=== PATIENT | female | born 1950 | race African-American/Black ===

== ENCOUNTER 2020-08-08 10:30 | Outpatient (RCR) | payer MEDICARE, OTHER, SELFPAY ==
[2020-07-17 12:38] VITALS: BMI 38.5
[2020-07-17 12:43] VITALS: BMI 38.5
== END 2020-10-15 14:18 | disposition home or self-care (01) ==
LOC: ANHDMC 10:30
PROVIDERS: PCP Internal Medicine; Visit Provider Internal Medicine Endocrinology, Diabetes & Metabolism
DX: E11.9 Type 2 diabetes mellitus without complications (principal); Z71.3 Dietary counseling and surveillance; Z71.89 Other specified counseling
CPT/HCPCS: 97802; G0108

== ENCOUNTER 2020-10-12 11:00 | Inpatient (IN) | payer MEDICARE, OTHER, SELFPAY ==
[2020-10-12] VITALS (17 sets, daily range): BP systolic 153–201; BP diastolic 85–110; PULSE 67–112; RESP 20–52; TEMP 36.5–37.7; O2SAT 86–100; BMI 39.1
--- NOTE | ~2020-10-12 | XR_ITS ---
EXAMINATION: XR chest 1V portable DATE: 10/12/2020 12:14 INDICATION: Fever. COVID-19 pneumonia. TECHNIQUE: A single frontal view of the chest was obtained. COMPARISON: None. FINDINGS: There are patchy airspace opacities in all right lung zones and in left mid and lower lung zones. No pleural effusion or pneumothorax. The heart size is normal. IMPRESSION: 1. Diffuse lung disease, consistent with COVID-19 pneumonia. Reviewed, dictated and finalized at location A. RAMMER
--- NOTE | ~2020-10-12 | XR_ITS ---
EXAMINATION: XR abdomen/kub 1V INDICATION: Left flank pain TECHNIQUE: Supine views of the abdomen were obtained on 2 radiographs. COMPARISON: CT from today FINDINGS: The bowel gas pattern is normal. There are no dilated loops of bowel. No urolithiasis is id entified. There are phleboliths in the pelvis. Airspace opacities are present in the visualized lung bases. There is mild osteoarthritis of the hips. IMPRESSION: 1. No urolithiasis identified. 2. Bibasilar airspace opacities, consistent with pneumonia. Reviewed, dictated and finalized at location A. ET OPERATOR
--- NOTE | ~2020-10-12 | CT_ITS ---
EXAMINATION: CT brain wo con EXAM DATE: 10/21/2020 15:55 INDICATION: Episode of staring off, temporary change in awareness. Elevated BP. TECHNIQUE: Spiral CT of the head was performed without contrast. Axial, coronal and sagittal images were reviewed. The dose-length product (DLP) for this examination was 681.00 mGy-cm. The exposure w as tailored according to patient size, and iterative reconstruction (ASIR) was used as additional dos e reduction technique. There is no prior study for comparison. FINDINGS: There is no acute intraparenchymal hemorrhage. No evidence of intraparenchymal brain mass lesion. No evidence of acute infarction. Please note that initial head CT has limited sensitivity f or small or acute infarctions. There is mild periventricular and subcortical hypodensity, nonspecific but probably related to small vessel ischemic disease. There is mild prominence of the sulci and v entricles related to cerebral atrophy. There is intracranial carotid arteriosclerosis. There are n o extra-axial collections. There is no mass effect or midline shift. The orbits are unremarkable. Soft tissue is unremarkable. The visualized sinuses and mastoid air cells are well aerated. IMPRESSION: 1. No acute intracranial findings. 2. Chronic age related findings. Reviewed, dictated and finalized at location A. CONSTRUCTION SUPERVISOR
--- NOTE | ~2020-10-12 | CT_ITS ---
EXAMINATION: CT abdomen pelvis wo con EXAM DATE: 10/12/2020 13:44 INDICATION: Left flank pain. TECHNIQUE: Spiral CT of the abdomen and pelvis was performed without contrast. Axial, coronal and sag ittal images were reviewed. The dose-length product (DLP) for this examination was 1374.20 mGy-cm. The exposure was tailored according to patient size (auto mA exposure control), and iterative reconst ruction (ASIR) was used as additional dose reduction technique. There is no prior study for comparis on. FINDINGS: Extensive bibasilar peripheral predominant groundglass airspace disease, appearance most co nsistent with COVID pneumonia. There is no nephrolithiasis or hydronephrosis. The uterus is not identified and has likely been prabha gically resected. The bladder is unremarkable. The liver, spleen, adrenal glands and pancreas are u nremarkable. Small gallstones within an otherwise unremarkable gallbladder. There is no retroperito wolf or pelvic lymphadenopathy. There is mild scattered arteriosclerotic disease. The appendix is normal. There is small sliding gastroesophageal hiatal hernia. There is expected am ount of colonic stool. No free intraperitoneal gas. The heart is normal in size. There are no pe ricardial or pleural effusions. The lung bases are unremarkable. There are no osteoblastic or osteo lytic lesions identified. IMPRESSION: 1. No nephrolithiasis, hydronephrosis or acute intra-abdominal findings. 2. Extensive COVID pneumonia. Reviewed, dictated and finalized at location B. ER ASSEMBLER
--- NOTE | ~2020-10-12 | CT_ITS ---
EXAMINATION: CTA chest PE protocol DATE: 10/14/2020 10:33 IT QUALITY ASSURANCE ANALYST INDICATION: Hypoxia. Covid. TECHNIQUE: Computed tomographic angiography (CTA) of the chest was performed with 100 mL Omnipaque-35 0 intravenous contrast. The dose-length product was 794.19 mGy-cm. Maximum intensity projection 3D-re constructions of the aorta and other arteries were constructed by the technologist on a separate work station. Automated exposure control and iterative reconstruction technique were employed. COMPARISON: Chest dated 10/12/2020 FINDINGS: Study is slightly limited by motion artifact. No large central pulmonary embolism. There is mediastinal and right hilar lymphadenopathy, likely reactive. No significant pleural or pericardial effusion. Heart size normal. The upper abdomen is grossly unremarkable. There are extensive patchy groundglass opacities with mosa ic attenuation, compatible with pneumonia. No endobronchial lesions. No evidence for aortic aneurysm or dissection. IMPRESSION: 1. No large central pulmonary embolism. Evaluation of peripheral pulmonary arteries limited by motion . 2: Extensive patchy groundglass opacification throughout both lungs, compatible with pneumonia. 3: Mediastinal and right hilar lymphadenopathy, likely reactive. Reviewed, dictated and finalized at location A. QUALITY ASSURANCE ANALYST IMPRESSION: 1. No large central pulmonary embolism. Evaluation of peripheral pulmonary summer zhanna limited by motion. 2: Extensive patchy groundglass opacification throughout both lungs, compatible with pneumonia. 3: Mediastinal and right hilar lymphadenopathy, likely reactive.
--- NOTE | 2020-10-12 11:18 | ECG_ITS ---
Measurements Intervals [place] Rate: 97 P: 14 NM: 157 QRS: -16 QRSD: 89 T: 63 QT: 337 QTc: 428 Interpretive Statements SINUS RHYTHM VOLTAGE CRITERIA FOR LVH POOR R WAVE PROGRESSION, CONSIDER ANTERIOR INFARCT ABNORMAL ECG Electronically Signed On 10-12-2020 15:34:42 CHAIN OFFBEARER by Boom Hale D.O.
[2020-10-12 11:40] LABS: Hemoglobin 11.8 g/dL (12.0-15.0); Mean Corpuscular HGB Conc 33.7 g/dl (32-36); Mean Corpuscular Hemoglobin 29.5 pg (26-34); Mean Corpuscular Volume 87.5 fl (80-100); Mean Platelet Volume 9.7 fl (7.4-10.4); Platelet Count Result 241 k/mm3 (150-375); Red Cell Distribution Width 14.7 % (11.5-14.5); White Blood Count 8.8 K/mm3 (4.5-10.0)
[2020-10-12 11:50] LABS: Prothrombin Time 13.7 Seconds (11.1-14.7)
[2020-10-12 11:51] LABS: Partial Thromboplastin Time 32.1 SECONDS (22.3-36.8)
[2020-10-12 11:52] LABS: Lactic Acid Reflex 1.5 mmol/L (0.7-2.1)
[2020-10-12 11:57] LABS: Alanine Aminotransferase 49 U/L (4-35); Albumin Level 3.7 g/dL (3.5-5.1); Alkaline Phosphatase 112 U/L (38-126); Anion Gap 6 mmol/L (8-16); Aspartate Amino Transferase 70 U/L (14-36); Blood Urea Nitrogen 12 mg/dL (7-17); Calcium 9.2 mg/dL (8.4-10.2); Carbon Dioxide 27 mmol/L (22-30); Chloride 104 mmol/L (98-107); Estimated CRCL calculation 52 ml/min; Estimated Glomerular Filt Rate 45; Glucose 112 mg/dL (65-105); Potassium 4.6 mmol/L (3.4-5.0); Sodium 137 mmol/L (137-145)
[2020-10-12 11:59] LABS: Hypochromasia 1+ (NORMAL); Lymphocytes Absolute Manual 0.79 K/mm3 (1.1-4.5); Monocytes Absolute Manual 0.61 K/mm3 (0.1-0.90); Monocytes Percent Manual 7 % (3-9); Neutrophils Percent Manual 84 % (46-73); Platelet Estimate Adequate (Adequate); Tear Drop Cells 1+ (NORMAL); Total Cells Counted 100
[2020-10-12 12:06] LABS: CRP 26.2 mg/dL (<1.0)
[2020-10-12 12:08] LABS: Add Urine Microscopic? YES; Appearance Urine Clear (Clear); Bacteria Urine Trace /hpf; Bilirubin Urine Negative (Negative); Blood Urine Negative (Negative); Cellular Casts Urine Present /lpf; Color Urine Yellow (Yellow); Glucose Urine UA Negative (Negative); Hyaline Casts Urine 15-19 /lpf; Ketones Urine Negative (Negative); Leukocyte Esterase Ur Negative LEU/UL (Negative); Mucus Urine Rare /lpf; Nitrate Urine Negative (Negative); Protein Urine 3+ mg/dL (Negative); RBC Urine 0-2 /hpf (0-2); Specific Grav Ur 1.018 (1.001-1.035); Squamous Epithelial Cell Urine Many /hpf (Few)
[2020-10-12 13:07] LABS: Alveolar/Arterial O2 Gradient 47.2 mmHg; Base Excess ABG 0.7 mEq/l (+/-2.0); Carboxyhemoglobin 0.3 % THb (0-2.0); Fractional Inspired Oxygen 21 %; HCO3 ABG 24.3 mEq/l (22.0-26.0); Methemoglobin ABG 0.3 %THb (0-1.5); Oxygen Content ABG 15.3 %vol (16.0-22.0); Oxygen Saturation ABG 92.3 % (95.0-100.0); PCO2 ABG 35.5 mmHg (35.0-45.0); PO2 FiO2 Ratio Arterial Blood 2.86 %; Reduced Hemoglobin 9.4 %THb (0-5.0); Total Hemoglobin 12.1 g/dL (12.0-18.0); pH ABG 7.454 (7.350-7.450)
[2020-10-12 13:08] LABS: Device ROOM AIR; Modified Allen's Test Pass; Site Drawn LEFT RADIAL
--- NOTE | 2020-10-12 13:10 | PC.NURSE ---
Patient's family members were updated by phone as ok'd by the patient.
[2020-10-12] MEDS: SODIUM CHLORIDE 0.9% IV 1,000 ML 999 ML IV CONT (13:31)
[2020-10-12] MEDS: MORPHINE SULFATE (*CRX) 4 MG/ML INJ IV PUSH (13:33)
[2020-10-12] MEDS: ONDANSETRON INJ 4 MG/2 ML VIAL IV PUSH (13:33)
--- NOTE | 2020-10-12 13:41 | ED.GENADULT ---
HPI - General Adult General Chief complaint: Fever Stated complaint: COVID+ x 15 days, Fever Time Seen by Provider: 10/12/20 12:18 Source: patient Mode of arrival: ambulatory Limitations: no limitations History of Present Illness HPI narrative: This patient is a 70 year old female who presents from home for evaluation of worsening shortness of breath. She reports shortness of breath, fever, chills, fatigue since her diagnosis of covid 09/30/20 . He reports that she had a fever of 102 today. She states she does not feel well. She reports nausea, left flank pain and lower abdominal pain . She was evaluated at [facility] for her symptoms within the past 48 hours , and she was discharged. She reports dizziness with standing. Related Data Home Medications Medication Instructions Recorded Confirmed allopurinol 300 mg PO DAILY 10/12/20 10/12/20 calcitriol 0.25 mcg PO DAILY 10/12/20 10/12/20 clonidine HCl 0.1 mg PO TID 10/12/20 10/12/20 clonidine HCl 0.1 mg PO TID 10/12/20 10/12/20 ergocalciferol (vitamin D2) 1,250 mcg PO WEEKLY 10/12/20 10/12/20 losartan 25 mg PO DAILY 10/12/20 10/12/20 nitrofurantoin monohyd/m-cryst 100 mg PO BID 10/12/20 10/12/20 ondansetron HCl 4 mg PO PRN 10/12/20 10/12/20 prednisone 5 mg PO DAILY 10/12/20 10/12/20 tramadol 50 mg PO PRN 10/12/20 10/12/20 Allergies Allergy/AdvReac Type Severity Reaction Status Date / Time No Known Allergies Allergy Verified 10/12/20 11:27 Review of Systems Review of Systems: All systems reviewed & are unremarkable except as noted in HPI and below Constitutional: Constitutional: Reports chills, Reports fatigue, Reports fever(s) and Reports weakness ENT: Reports dizziness Cardiovascular: Cardiovascular: Denies chest pain Respiratory: Respiratory: Reports cough and Reports dyspnea Gastrointestinal: Gastrointestinal: Reports abdominal pain, Reports diarrhea, Reports nausea and Denies vomiting Genitourinary: Genitourinary: Denies hematuria, Denies nocturia, Denies dysuria and Reports flank pain Musculoskeletal: Musculoskeletal: Reports back pain PMFSH Past Medical History Medical History DM2 (diabetes mellitus, type 2) Gout Hypertension Obstructive sleep apnea Unable to wear this week due to COVID. 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 She still works part-time job at [employer]. She has 2 children. She does not have a durable power immigration attorney. She is not sure about her code status at this point emboli that she may want to be a DNR. She is a lifelong nonsmoker and does not use any alcohol or drugs. Smoking status: Never smoker Alcohol intake: never Substance use: never Substance use type: does not use Gender identity (if verbalized by the patient): Female Spiritual care concerns: No Exam Const: General: alert and ill appearing Orientation/consciousness: patient oriented x3 HENMT: Head: normocephalic and atraumatic Face and sinus: face symmetric Throat: posterior oropharynx normal, tonsils normal and uvula midline Eyes: Pupils: Equal, round and reactive pupils present EOM: EOMs intact bilaterally Chest: Chest palpation & inspection: normal inspection of the chest Resp: Effort & Inspection: tachypneic (mildly , able to speak in complete sentences) Auscultation: clear to
[2020-10-12] MEDS: DEXAMETHASONE SOD PHOS INJ 4 MG/ML VIAL 6 MG IV PUSH (14:44)
[2020-10-12] MEDS: SODIUM CHLORIDE 0.9% IV 1,000 ML 125 ML IV CONT (14:50)
--- NOTE | 2020-10-12 16:00 | PC.NURSE ---
Patient's family called with an update at this time. Ok to speak with Beth Nando (patient's sister) at [phone] as well as with Alida Mcnulty (patient's [id number]) at [phone]. Family aware patient to be admitted and that I will call back when a room has been assigned. Family also aware of COVID related visitor restrictions.
[2020-10-12] MEDS: hydrALAZINE HCL 20 MG/ML VIAL 10 MG IV PUSH (16:11)
--- NOTE | 2020-10-12 16:37 | PC.NURSE ---
Dinner tray ordered at this time.
--- NOTE | 2020-10-12 17:27 | PC.NURSE ---
Patient's family contacted and notified of the patient's room assignment.
--- NOTE | 2020-10-12 18:22 | PC.NURSE ---
This patient, Valerie Mcnulty, was admitted to 3 Med Surg Room 301-01. Patient/family oriented to hospital policies and general routines including ID bracelet, bed and alarms, visiting hours, pain management, procedures, bathroom and other care routines, personal items, smoking policy, room service/diet, and visiting hours. Information on how to activate the Rapid Response Team has been discussed. Patient/Family are encouraged to report perceived risks to care and to ask questions if they do not understand what they are told or what they should do.
--- NOTE | 2020-10-12 19:58 | PM.IMHP ---
H&P: HPI History of Present Illness Date/Time: 10/12/20 19:58 Chief Complaint: Fever Narrative: Valerie Mcnulty is a 70 year old female the patient was diagnosed with COVID about 15 days ago. She recently went to [facility] [place] because she had been so short of breath. The patient stated that she received if you prescription but did not take them. She has had a poor appetite and has not been able but take in much orally. The patient stated which she ate today was more than what she has eaten in 7 days. The patient recently was treated for UTI and has not taken her Macrobid that she is prescribed. She said it makes her sick to her stomach and gives her diarrhea. She is supposed to take them twice a day and has only been taking the once a day and some days edema take them. The patient has a history of having high blood pressure and diabetes. She said that her blood sugars are typically in the lower 100s to upper 90s. She said she was due for her Trulicity today but did take it could she has not been eating very well. She was complaining of some abdominal pain and bloating. Patient was also short of breath and she had some ABGs performed. Her O2 content was low and PO2 was low at 60. 3 L was applied for nasal cannula. The patient does have a history of RA and has been taking her prednisone. On IV fluids, given dexamethasone, Tylenol inhaler hydralazine and Zofran. Patient is being admitted to inpatient services. No kidney stones on her abdominal x-ray. Bibasilar airspace opacities consistent with pneumonia abdominal pelvis CT was read as extensive COVID pneumonia. No nephro kidney stones hydronephrosis or acute intra-abdominal findings. The urine only had 10-15 wbc's. Urine and blood cultures are pending. Patient is being admitted to inpatient services on the date of service 10/12/2020. Review of Systems Review of Systems: All systems reviewed & are unremarkable except as noted in HPI and below Constitutional: Constitutional: Reports as per HPI and Reports no additional constitutional complaints Eyes: Eyes: Reports as per HPI and Reports no additional eye complaints ENT: Reports system reviewed and no additional complaints, except as documented and Reports Normal hearing present Cardiovascular: Cardiovascular: Reports no additional cardiovascular complaints Respiratory: Respiratory: Reports no additional respiratory complaints and Reports no additional respiratory complaints Gastrointestinal: Gastrointestinal: Reports as per HPI and Reports no additional gastrointestinal complaints Musculoskeletal: Musculoskeletal: Reports no additional musculoskeletal complaints Integumentary/Breasts: Skin/Breast: Reports system reviewed and no additional complaints, except as docu and Reports as per HPI Neurologic: Reports system reviewed and no additional complaints, except as documented, Reports as per HPI and Reports Normal hearing present Psychiatric: Psychiatric: Reports no additional psychiatric complaints and Reports as per HPI Endocrine: Endocrine: Reports no additional endocrine complaints Hematologic/Lymphatic: Hematologic/Lymphatic: Reports no additional hematologic/lymphatic complaints Allergic/Immunologic: Allergic/Immunologic: Reports no additional allergic/immunologic complaints [facility] Past Medical History Medical History (Updated 10/12/20 @ 20:15 by Lucrecia Johnson NP) DM2 (diabetes mellitus, type 2) Gout Hypertension Obstructive sleep apnea Unable to wear this week due to COVID. Surgical History Surgical History (Updated 10/12/20 @ 20:15 by Lucrecia Johnson NP) History of hysterectomy for indication other than cancer Family History Family History (Updated 10/12/20 @ 20:18 by Lucrecia Johnson NP) Sibling Lupus Tobacco abuse Sibling Breast cancer 1 sister Lung cancer Another sister who has a history of smoking cigarettes Mother Heart disease Father Lung cancer Tobacco abuse
[2020-10-12 20:13] LABS: Hemoglobin A1C 6.3 % (<5.7)
[2020-10-12] MEDS: cloNIDine HCL 0.1 MG TABLET PO (21:06)
[2020-10-13] VITALS (7 sets, daily range): BP systolic 129–155; BP diastolic 71–84; PULSE 61–98; RESP 16–22; TEMP 36.5–36.8; O2SAT 90–93
[2020-10-13] MEDS: guaiFENesin/DEXTROMETHORPHAN 10 ML UDC PO ×2 (04:42→10:20)
[2020-10-13 06:28] LABS: Basophils Percent Auto 0.4 % (0.2-1.2); Hematocrit 32.7 % (37.0-47.0); Hemoglobin 11.1 g/dL (12.0-15.0); Immature Granulocyte Absolute 0.08 K/mm3 (0.00-0.031); Immature Granulocyte Percent A 1.1 % (0-0.5); Lymphocytes Absolute Auto 0.78 K/mm3 (0.9-3.2); Lymphocytes Percent Auto 10.6 % (18.3-44.2); Mean Corpuscular HGB Conc 33.9 g/dl (32-36); Mean Corpuscular Hemoglobin 28.8 pg (26-34); Mean Corpuscular Volume 84.9 fl (80-100); Mean Platelet Volume 9.7 fl (7.4-10.4); Monocytes Absolute Auto 0.5 K/mm3 (0.1-0.6); Monocytes Percent Auto 6.6 % (2.6-8.5); Neutrophils Percent Auto 81.3 % (45.5-73.1); Platelet Count Result 255 k/mm3 (150-375); Red Blood Count 3.85 M/mm3 (4.2-5.4); Red Cell Distribution Width 14.4 % (11.5-14.5); White Blood Count 7.4 K/mm3 (4.5-10.0)
[2020-10-13 06:38] LABS: Hemoglobin A1C 6.3 % (<5.7)
[2020-10-13 06:39] LABS: Alanine Aminotransferase 41 U/L (4-35); Albumin Level 3.3 g/dL (3.5-5.1); Alkaline Phosphatase 102 U/L (38-126); Anion Gap 3 mmol/L (8-16); Aspartate Amino Transferase 45 U/L (14-36); Bilirubin,Total 0.6 mg/dL (0.2-1.3); Blood Urea Nitrogen 12 mg/dL (7-17); Calcium 9.3 mg/dL (8.4-10.2); Carbon Dioxide 26 mmol/L (22-30); Chloride 108 mmol/L (98-107); Estimated CRCL calculation 62 ml/min; Estimated Glomerular Filt Rate 55; Glucose 169 mg/dL (65-105); Potassium 4.6 mmol/L (3.4-5.0); Sodium 137 mmol/L (137-145)
[2020-10-13 07:41] LABS: Anisocytosis 1+ (NORMAL); Platelet Estimate Adequate (Adequate); Poikilocytosis 1+ (NORMAL)
[2020-10-13] MEDS: allopurinoL 300 MG TABLET PO (10:20)
[2020-10-13] MEDS: DEXAMETHASONE SOD PHOS INJ 4 MG/ML VIAL 6 MG IV PUSH (10:20)
[2020-10-13] MEDS: cloNIDine HCL 0.1 MG TABLET PO ×3 (10:20→18:01)
[2020-10-13] MEDS: LOSARTAN POTASSIUM 25 MG TABLET PO (10:21)
[2020-10-13] MEDS: calcitrioL 0.25 MCG CAPSULE PO (10:21)
[2020-10-13] MEDS: ENOXAPARIN 40 MG/0.4 ML SYRINGE SUB-Q (10:21)
[2020-10-13 12:09] LABS: Glucose Point of Care 144 (65-105)
[2020-10-13] MEDS: SODIUM CHLORIDE 0.9% IV 1,000 ML 50 ML IV CONT (12:29)
[2020-10-13 12:30] LABS: Glucose Point of Care 186 (65-105)
--- NOTE | 2020-10-13 15:18 | PM.IMPN ---
Progress Note: A&P Assessment and Plan (1) COVID-19: Code(s): U07.1 - COVID-19 Status: Acute Assessment and Plan: With acute respiratory failure with hypoxia; requiring 3L O2 NC. ABG shows hypoxemia, although reduced hemoglobin elevated, possible mixed specimen. Diagnosed with COVID on 09/30. Placed on IV decadron from ED; home oral prednisone held for now. Continue IV decadron IS Mucinex and Tylenol Will do scheduled albuterol inhaler Prone position discussed at admission. Encouraged her to get up out of bed as tolerated Wean O2 as tolerated Consider further imaging if no improvement in oxygen needs Will d/c fluids as PO intake appears to have improved per EMR (2) UTI (urinary tract infection): Code(s): N39.0 - Urinary tract infection, site not specified Status: Acute Assessment and Plan: Diagnosed prior to arrival and could not complete her course of Macrobid due to poor PO intake. UA suspicious for UTI; UCx pending. Blood cultures obtained and NGTD thus far Continue IV rocephin for now; tailor antibiotics to culture Encourage PO intake (3) Gout: Code(s): M10.9 - Gout, unspecified Status: Chronic Assessment and Plan: Continue with allopurinol (4) Hypertension: Code(s): I10 - Essential (primary) hypertension Status: Chronic Assessment and Plan: BP 150s sys most recently Continue with losartan and clonidine hydralazine p.r.n. with parameters (5) DM2 (diabetes mellitus, type 2): Code(s): E11.9 - Type 2 diabetes mellitus without complications Status: Chronic Assessment and Plan: A1c 6.3 Accuchecks ACHS, hypoglycemia protocol, correctional insulin, diabetic diet Patient reportedly takes trulicity although this is not in her home medication list (6) Obstructive sleep apnea: Code(s): G47.33 - Obstructive sleep apnea (adult) (pediatric) Status: Chronic Assessment and Plan: Will hold CPAP for now as patient COVID positive and still symptomatic, although it has been roughly 2 weeks since symptom onset. Subjective Date/time seen: 10/13/20 15:18 Interval history: Patient is a 70 yo F with history of DMII, gout, HTN, and SUMAYA and recent COVID pneumonia (diagnosed 09/30/20) who is seen in follow up for acute respiratory failure with hypoxia and suspected UTI. Patient states she feels much better today then yesterday, but still feeling short of breath; unable to take a deep breath in. She reports a cough with yellow sputum production. Denies chest pain/pleuritic pain. Appetite has improved some. Gets ocassional subjective f/c. No other complaints at the moment. Denies headaches, cp/palpitations, sob/cough, n/v/d/c, abd pain, changes in BMs, dysuria, calf pain Review of Systems Review of Systems: All systems reviewed & are unremarkable except as noted in HPI and below Exam Narrative: Exam Narrative: General: Patient resting in semi moore's position in bed in no acute distress. HEENT: Normocephalic, EOMI, oral mucosa moist. Cardiovascular: Rate and rhythm are regular. No notable murmur, rub, or gallop. Respiratory: Coarse breath sounds b/l. +cough with yellow sputum. Non-labored breathing. Abdomen: Soft, non-tender, non-distended, bowel sounds present. Extremities: Peripheral pulses intact. No edema. NTTP b/l calves Neuro: No focal neurological deficits. Speech is clear. Objective Data Vital Signs Vital Signs: Last Vital Signs Temp 97.8 F 10/13/20 12:00 Pulse 61 10/13/20 12:00 Resp 20 10/13/20 12:00 BP 155/84 H 10/13/20 12:00 Pulse Ox 92 10/13/20 12:00 Intake/Output Intake/Output: Intake & Output 10/10/20 10/11/20 10/12/20 10/13/20 23:59 23:59 23:59
[2020-10-13 18:30] LABS: Glucose Point of Care 190 (65-105)
[2020-10-13] MEDS: guaiFENesin 12 HR 600 MG TABCR 1200 MG PO (20:25)
[2020-10-13 21:42] LABS: Glucose Point of Care 294 (65-105)
[2020-10-13] MEDS: ALBUTEROL SULFATE (*SP) INHALER 2 PUFF INHALATION (22:06)
[2020-10-14] VITALS (8 sets, daily range): BP systolic 108–164; BP diastolic 61–99; PULSE 71–92; RESP 20–22; TEMP 36.2–36.8; O2SAT 89–97
[2020-10-14] MEDS: ALBUTEROL SULFATE (*SP) INHALER 2 PUFF INHALATION ×4 (01:42→20:41)
[2020-10-14 06:34] LABS: Basophils Percent Auto 0.2 % (0.2-1.2); Hematocrit 32.9 % (37.0-47.0); Hemoglobin 11.1 g/dL (12.0-15.0); Immature Granulocyte Absolute 0.17 K/mm3 (0.00-0.031); Immature Granulocyte Percent A 1.6 % (0-0.5); Lymphocytes Absolute Auto 0.74 K/mm3 (0.9-3.2); Mean Corpuscular HGB Conc 33.7 g/dl (32-36); Mean Corpuscular Volume 85.9 fl (80-100); Monocytes Absolute Auto 0.7 K/mm3 (0.1-0.6); Neutrophils Absolute Auto 8.9 K/mm3 (1.3-6.7); Neutrophils Percent Auto 84.2 % (45.5-73.1); Nucleated Red Blood Cells Perc 0.4 % (0.0-0.2); Platelet Count Result 337 k/mm3 (150-375); Red Blood Count 3.83 M/mm3 (4.2-5.4); Red Cell Distribution Width 14.4 % (11.5-14.5); White Blood Count 10.6 K/mm3 (4.5-10.0)
[2020-10-14 06:50] LABS: Alanine Aminotransferase 42 U/L (4-35); Albumin Level 3.3 g/dL (3.5-5.1); Alkaline Phosphatase 115 U/L (38-126); Anion Gap 4 mmol/L (8-16); Aspartate Amino Transferase 53 U/L (14-36); Bilirubin,Total 0.5 mg/dL (0.2-1.3); Blood Urea Nitrogen 21 mg/dL (7-17); Calcium 9.5 mg/dL (8.4-10.2); Carbon Dioxide 26 mmol/L (22-30); Chloride 107 mmol/L (98-107); Estimated CRCL calculation 57 ml/min; Estimated Glomerular Filt Rate 49; Glucose 173 mg/dL (65-105); Magnesium 2.2 mg/dL (1.6-2.3); Potassium 4.9 mmol/L (3.4-5.0); Sodium 137 mmol/L (137-145)
[2020-10-14 08:23] LABS: Glucose Point of Care 182 (65-105)
[2020-10-14] MEDS: cloNIDine HCL 0.1 MG TABLET PO ×3 (08:53→18:16)
[2020-10-14] MEDS: guaiFENesin 12 HR 600 MG TABCR 1200 MG PO (08:53)
[2020-10-14] MEDS: calcitrioL 0.25 MCG CAPSULE PO (08:56)
[2020-10-14] MEDS: allopurinoL 300 MG TABLET PO (08:56)
[2020-10-14] MEDS: ENOXAPARIN 40 MG/0.4 ML SYRINGE SUB-Q (08:57)
[2020-10-14] MEDS: LOSARTAN POTASSIUM 25 MG TABLET PO (08:57)
[2020-10-14] MEDS: DEXAMETHASONE SOD PHOS INJ 4 MG/ML VIAL 6 MG IV PUSH (08:58)
--- NOTE | 2020-10-14 10:35 | PCOTNOTE ---
Attempted to see patient this am, however patient off floor for testing/procedure at this time.
--- NOTE | 2020-10-14 13:08 | PCOTNOTE ---
Attempted to see patient at 12:20, however patient was with physical therapy. Attempted again this pm, however patient was eating lunch.
[2020-10-14] MEDS: INSULIN ASPART (*BKC) 100 UNITS/ML SUB-Q ×2 (13:15→18:17)
[2020-10-14] MEDS: guaiFENesin/DEXTROMETHORPHAN 10 ML UDC PO ×2 (13:17→18:19)
[2020-10-14] MEDS: SODIUM CHLORIDE 0.9% IV 1,000 ML 50 ML IV CONT (13:17)
--- NOTE | 2020-10-14 13:29 | PM.IMPN ---
Progress Note: A&P Assessment and Plan (1) COVID-19: Code(s): U07.1 - COVID-19 Status: Acute Assessment and Plan: With acute respiratory failure with hypoxia; requiring 3-4 L O2 NC in the past 24 hours; currently on 3.5 L. PE of of concern for hypoxia; CTA chest 10/14 was unremarkable for evidence of PE, although limited due to artifact. ABG shows hypoxemia, although reduced hemoglobin elevated, possible mixed specimen. Diagnosed with COVID on 09/30. Placed on IV decadron from ED; home oral prednisone held for now. Continue IV decadron IS Supportive care with Robitussin and Tylenol PRN Will do scheduled albuterol inhaler Prone position discussed at admission. Encouraged her to get up out of bed as tolerated Wean O2 as tolerated (2) UTI (urinary tract infection): Code(s): N39.0 - Urinary tract infection, site not specified Status: Acute Assessment and Plan: Diagnosed prior to arrival and could not complete her course of Macrobid due to poor PO intake. UA suspicious for UTI; UCx Negative. Blood cultures obtained and NGTD thus far Continue IV rocephin today to complete 3 doses for suspected partially treated UTI Encourage PO intake (3) Gout: Code(s): M10.9 - Gout, unspecified Status: Chronic Assessment and Plan: Continue with allopurinol (4) Hypertension: Code(s): I10 - Essential (primary) hypertension Status: Chronic Assessment and Plan: BP 150s sys most recently Continue with losartan and clonidine hydralazine p.r.n. with parameters (5) DM2 (diabetes mellitus, type 2): Code(s): E11.9 - Type 2 diabetes mellitus without complications Status: Chronic Assessment and Plan: A1c 6.3 Accuchecks ACHS, hypoglycemia protocol, correctional insulin, diabetic diet Patient reportedly takes trulicity although this is not in her home medication list (6) Obstructive sleep apnea: Code(s): G47.33 - Obstructive sleep apnea (adult) (pediatric) Status: Chronic Assessment and Plan: Will hold CPAP for now as patient COVID positive and still symptomatic, although it has been roughly 2 weeks since symptom onset. Subjective Date/time seen: 10/14/20 13:29 Interval history: Patient is a 70 yo F with history of DMII, gout, HTN, and SUMAYA and recent COVID pneumonia (diagnosed 09/30/20) who is seen in follow up for acute respiratory failure with hypoxia and suspected UTI. Patient states she feels much better again today, but still feeling short of breath; unable to take a deep breath in still. She still reports a cough with yellow sputum production. Denies chest pain/pleuritic pain. Appetite has improved some again today. No other complaints at the moment. Denies headaches, cp/palpitations, sob/cough, n/v/d/c, abd pain, changes in BMs, dysuria, calf pain Review of Systems Review of Systems: All systems reviewed & are unremarkable except as noted in HPI and below Exam Narrative: Exam Narrative: General: Patient sitting on side of bed about to eat lunch in no acute distress. HEENT: Normocephalic, EOMI, oral mucosa moist. Cardiovascular: Rate and rhythm are regular. No notable murmur, rub, or gallop. Respiratory: Coarse breath sounds b/l. +cough. Non-labored breathing. Abbreviated inspirations. On 3.5 L O2 NC at time of visit; EMR documented otherwise Abdomen: Soft, non-tender, non-distended, bowel sounds present. Extremities: Peripheral pulses intact. No edema. NTTP b/l calves Neuro: No focal neurological deficits. Speech is clear. Objective Data Vital Signs Vital Signs: Last Vital Signs Temp 98.0 F 10/14/20 12:00 Pulse 91 10/14/20 12:00 Resp 20 10/14/20 12:00 BP 159/84 H 10/14/20 12:00 P
[2020-10-14 13:38] LABS: Glucose Point of Care 279 (65-105)
[2020-10-14 17:33] LABS: Glucose Point of Care 218 (65-105)
[2020-10-14 21:28] LABS: Glucose Point of Care 327 (65-105)
[2020-10-15] VITALS (9 sets, daily range): BP systolic 126–215; BP diastolic 59–108; PULSE 67–105; RESP 16–24; TEMP 36.3–37.3; O2SAT 68–98
[2020-10-15] MEDS: ALBUTEROL SULFATE (*SP) INHALER 2 PUFF INHALATION ×4 (02:19→21:07)
[2020-10-15 06:22] LABS: Basophils Percent Auto 0.3 % (0.2-1.2); Hematocrit 31.9 % (37.0-47.0); Hemoglobin 10.9 g/dL (12.0-15.0); Immature Granulocyte Absolute 0.23 K/mm3 (0.00-0.031); Immature Granulocyte Percent A 2.4 % (0-0.5); Lymphocytes Absolute Auto 0.67 K/mm3 (0.9-3.2); Lymphocytes Percent Auto 6.9 % (18.3-44.2); Mean Corpuscular HGB Conc 34.2 g/dl (32-36); Mean Corpuscular Hemoglobin 29.4 pg (26-34); Mean Platelet Volume 9.7 fl (7.4-10.4); Monocytes Absolute Auto 0.9 K/mm3 (0.1-0.6); Monocytes Percent Auto 9.2 % (2.6-8.5); Neutrophils Absolute Auto 7.9 K/mm3 (1.3-6.7); Neutrophils Percent Auto 81.2 % (45.5-73.1); Nucleated Red Blood Cells Perc 0.2 % (0.0-0.2); Platelet Count Result 363 k/mm3 (150-375); Red Blood Count 3.71 M/mm3 (4.2-5.4); Red Cell Distribution Width 14.4 % (11.5-14.5); White Blood Count 9.7 K/mm3 (4.5-10.0)
[2020-10-15 06:31] LABS: Alanine Aminotransferase 62 U/L (4-35); Albumin Level 3.1 g/dL (3.5-5.1); Alkaline Phosphatase 115 U/L (38-126); Anion Gap 6 mmol/L (8-16); Aspartate Amino Transferase 73 U/L (14-36); Bilirubin,Total 0.3 mg/dL (0.2-1.3); Blood Urea Nitrogen 20 mg/dL (7-17); Calcium 9.4 mg/dL (8.4-10.2); Carbon Dioxide 25 mmol/L (22-30); Chloride 110 mmol/L (98-107); Estimated CRCL calculation 62 ml/min; Estimated Glomerular Filt Rate 55; Glucose 198 mg/dL (65-105); Potassium 4.9 mmol/L (3.4-5.0); Sodium 141 mmol/L (137-145)
[2020-10-15 06:33] LABS: Lactate Dehydrogenase 1035 U/L (313-618)
--- NOTE | 2020-10-15 08:18 | PCPTNOTE ---
RN requests to hold PT this morning due to patient's O2 sats decreasing following transfer to [facility]. PT will follow up this afternoon.
[2020-10-15] MEDS: DEXAMETHASONE SOD PHOS INJ 4 MG/ML VIAL 6 MG IV PUSH (09:38)
[2020-10-15] MEDS: ENOXAPARIN 40 MG/0.4 ML SYRINGE SUB-Q (09:38)
[2020-10-15] MEDS: SODIUM CHLORIDE 0.9% IV 1,000 ML 50 ML IV CONT (09:38)
[2020-10-15] MEDS: LOSARTAN POTASSIUM 25 MG TABLET PO (09:39)
[2020-10-15] MEDS: calcitrioL 0.25 MCG CAPSULE PO (09:39)
[2020-10-15] MEDS: allopurinoL 300 MG TABLET PO (09:39)
[2020-10-15] MEDS: cloNIDine HCL 0.1 MG TABLET PO ×3 (09:39→17:11)
[2020-10-15 09:56] LABS: Glucose Point of Care 173 (65-105)
--- NOTE | 2020-10-15 12:07 | PM.IMPN ---
Progress Note: A&P Assessment and Plan (1) COVID-19: Code(s): U07.1 - COVID-19 Status: Acute Assessment and Plan: With acute respiratory failure with hypoxia; requiring 3-4 L O2 NC in the past 24 hours; currently on 3.5 L. PE of of concern for hypoxia; CTA chest 10/14 was unremarkable for evidence of PE, although limited due to artifact; extensive patchy groundglass opacification throughout both lungs, compatible with pneumonia noted. ABG showed hypoxemia, although reduced hemoglobin elevated, possible mixed specimen. Diagnosed with COVID on 09/30. Placed on IV decadron from ED; home oral prednisone held for now. Continue IV decadron IS Supportive care with Robitussin and Tylenol PRN Will do scheduled albuterol inhaler Prone position discussed at admission. Encouraged her to get up out of bed as tolerated. Encouraged breathing exercises although she has difficulty comprehending/tolerating Wean O2 as tolerated (2) UTI (urinary tract infection): Code(s): N39.0 - Urinary tract infection, site not specified Status: Acute Assessment and Plan: Diagnosed prior to arrival and could not complete her course of Macrobid due to poor PO intake. UA suspicious for UTI; UCx Negative. Blood cultures obtained and NGTD thus far. No urinary complaints Rocephin given x 3 days Encourage PO intake Monitor (3) Gout: Code(s): M10.9 - Gout, unspecified Status: Chronic Assessment and Plan: Continue with allopurinol (4) Hypertension: Code(s): I10 - Essential (primary) hypertension Status: Chronic Assessment and Plan: BP 190s sys most recently, although this was prior to daily meds Continue with losartan and clonidine hydralazine p.r.n. with parameters (5) DM2 (diabetes mellitus, type 2): Code(s): E11.9 - Type 2 diabetes mellitus without complications Status: Chronic Assessment and Plan: A1c 6.3 Accuchecks ACHS, hypoglycemia protocol, correctional insulin, diabetic diet Patient reportedly takes trulicity although this is not in her home medication list (6) Obstructive sleep apnea: Code(s): G47.33 - Obstructive sleep apnea (adult) (pediatric) Status: Chronic Assessment and Plan: CPAP initially held due to COVID infection, although it has been roughly >2 weeks since symptom onset and patient having difficulty controlling her breathing Will resume CPAP today Subjective Date/time seen: 10/15/20 12:07 Interval history: Patient is a 70 yo F with history of DMII, gout, HTN, and SUMAYA and recent COVID pneumonia (diagnosed 09/30/20) who is seen in follow up for acute respiratory failure with hypoxia and suspected UTI. Patient states she feels better again today, however, nursing reports that patient desatted on her supplemental oxygen this morning and was placed on NR mask as she was unable to teach patient to breath through her nostrils. Feels a bit anxious today. Encouraged her to breath through nose when having her NC on. Otherwise patient overall feels better and has little complaints. Tolerating PO. Cough has improved. Denies headaches, cp/palpitations, n/v/d/c, abd pain, changes in BMs, dysuria, calf pain. Review of Systems Review of Systems: All systems reviewed & are unremarkable except as noted in HPI and below Exam Narrative: Exam Narrative: General: Patient initially lying supine in bed with head raised, in no acute distress. Sat up on side of bed with little difficulty. HEENT: Normocephalic, EOMI, oral mucosa moist. Cardiovascular: Rate and rhythm are regular. No notable murmur, rub, or gallop. Respiratory: Coarse breath sounds b/l. +cough. Non-labored breathing. Abbreviated inspirations. On 10 L with
[2020-10-15 13:05] LABS: Glucose Point of Care 211 (65-105)
[2020-10-15] MEDS: INSULIN ASPART (*BKC) 100 UNITS/ML SUB-Q ×3 (13:24→22:25)
[2020-10-15] MEDS: LORazepam INJ (*CRX) 2 MG/ML VIAL 0.5 MG IV PUSH (13:24)
--- NOTE | 2020-10-15 15:44 | PC.NURSE ---
Patient tested COVID positive on 09/30/20. Questions about discontinuing droplet isolation due to increase oxygen this morning (4L to 10LHF). Spoke to Chelsea about this. Ok to continue isolation. Monitor daily.
[2020-10-15] MEDS: hydrALAZINE HCL 20 MG/ML VIAL 10 MG IV PUSH ×2 (17:16→18:55)
[2020-10-15 17:28] LABS: Glucose Point of Care 272 (65-105)
[2020-10-15 21:55] LABS: Glucose Point of Care 384 (65-105)
[2020-10-15] MEDS: INSULIN GLARGINE (*BKC) 100 UNITS/ML 10 UNITS SUB-Q (22:25)
[2020-10-15] MEDS: traMADol HCL (*CRX) 50 MG TABLET PO (22:46)
[2020-10-16] VITALS (11 sets, daily range): BP systolic 158–240; BP diastolic 76–120; PULSE 70–97; RESP 20–22; TEMP 36.3–36.9; O2SAT 78–100
[2020-10-16] MEDS: ALBUTEROL SULFATE (*SP) INHALER 2 PUFF INHALATION ×4 (02:24→20:51)
[2020-10-16 06:21] LABS: Basophils Percent Auto 0.2 % (0.2-1.2); Hematocrit 31.9 % (37.0-47.0); Hemoglobin 10.9 g/dL (12.0-15.0); Immature Granulocyte Absolute 0.46 K/mm3 (0.00-0.031); Immature Granulocyte Percent A 4.8 % (0-0.5); Lymphocytes Absolute Auto 0.78 K/mm3 (0.9-3.2); Lymphocytes Percent Auto 8.2 % (18.3-44.2); Mean Corpuscular HGB Conc 34.2 g/dl (32-36); Mean Corpuscular Hemoglobin 29.4 pg (26-34); Mean Platelet Volume 9.8 fl (7.4-10.4); Monocytes Percent Auto 10.1 % (2.6-8.5); Neutrophils Absolute Auto 7.3 K/mm3 (1.3-6.7); Neutrophils Percent Auto 76.7 % (45.5-73.1); Nucleated Red Blood Cells Perc 0.4 % (0.0-0.2); Platelet Count Result 372 k/mm3 (150-375); Red Blood Count 3.71 M/mm3 (4.2-5.4); Red Cell Distribution Width 14.6 % (11.5-14.5); White Blood Count 9.5 K/mm3 (4.5-10.0)
[2020-10-16 06:34] LABS: Alanine Aminotransferase 60 U/L (4-35); Albumin Level 3.1 g/dL (3.5-5.1); Alkaline Phosphatase 106 U/L (38-126); Anion Gap 4 mmol/L (8-16); Aspartate Amino Transferase 54 U/L (14-36); Bilirubin,Total 0.4 mg/dL (0.2-1.3); Blood Urea Nitrogen 20 mg/dL (7-17); Calcium 9.2 mg/dL (8.4-10.2); Carbon Dioxide 28 mmol/L (22-30); Chloride 107 mmol/L (98-107); Estimated CRCL calculation 62 ml/min; Estimated Glomerular Filt Rate 55; Glucose 198 mg/dL (65-105); Potassium 4.8 mmol/L (3.4-5.0); Sodium 139 mmol/L (137-145)
[2020-10-16] MEDS: ENOXAPARIN 40 MG/0.4 ML SYRINGE SUB-Q ×2 (09:01→20:50)
[2020-10-16] MEDS: DEXAMETHASONE SOD PHOS INJ 4 MG/ML VIAL 6 MG IV PUSH (09:02)
[2020-10-16] MEDS: LOSARTAN POTASSIUM 25 MG TABLET PO (09:02)
[2020-10-16] MEDS: cloNIDine HCL 0.1 MG TABLET PO ×3 (09:02→17:35)
[2020-10-16] MEDS: allopurinoL 300 MG TABLET PO (09:02)
[2020-10-16] MEDS: calcitrioL 0.25 MCG CAPSULE PO (09:02)
[2020-10-16 09:21] LABS: Glucose Point of Care 192 (65-105)
[2020-10-16] MEDS: INSULIN ASPART (*BKC) 100 UNITS/ML SUB-Q ×2 (12:25→17:35)
[2020-10-16 12:38] LABS: Glucose Point of Care 256 (65-105)
--- NOTE | 2020-10-16 12:44 | PC.NURSE ---
1220 pt pulse ox 97% on 15 high flow n/c decreased to 12 l
--- NOTE | 2020-10-16 14:34 | PM.IMPN ---
Progress Note: A&P Assessment and Plan (1) COVID-19: Code(s): U07.1 - COVID-19 Status: Acute Assessment and Plan: With acute respiratory failure with hypoxia; requiring high-flow nasal cannula in the past 24 hours; and currently on 12L. PE of of concern for hypoxia; CTA chest 10/14 was unremarkable for evidence of PE, although limited due to artifact; extensive patchy groundglass opacification throughout both lungs, compatible with pneumonia noted. ABG showed hypoxemia, although reduced hemoglobin elevated, possible mixed specimen. Diagnosed with COVID on 09/30. Placed on IV decadron from ED; home oral prednisone held for now. Continue IV decadron IS Supportive care with Robitussin and Tylenol PRN Will do scheduled albuterol inhaler Prone position discussed at admission. Encouraged her to get up out of bed as tolerated. Encouraged breathing exercises although she has difficulty comprehending/tolerating Wean O2 as tolerated PATIENT IS A FULL CODE (2) UTI (urinary tract infection): Code(s): N39.0 - Urinary tract infection, site not specified Status: Acute Assessment and Plan: Diagnosed prior to arrival and could not complete her course of Macrobid due to poor PO intake. UA suspicious for UTI; UCx Negative. Blood cultures obtained and NGTD thus far. No urinary complaints Rocephin given x 3 days Encourage PO intake Monitor (3) Gout: Code(s): M10.9 - Gout, unspecified Status: Chronic Assessment and Plan: Continue with allopurinol (4) Hypertension: Code(s): I10 - Essential (primary) hypertension Status: Chronic Assessment and Plan: BP 190s sys most recently, although this was prior to daily meds Continue with losartan and clonidine hydralazine p.r.n. with parameters (5) DM2 (diabetes mellitus, type 2): Code(s): E11.9 - Type 2 diabetes mellitus without complications Status: Chronic Assessment and Plan: A1c 6.3 Accuchecks ACHS, hypoglycemia protocol, correctional insulin, diabetic diet Patient reportedly takes trulicity although this is not in her home medication list (6) Obstructive sleep apnea: Code(s): G47.33 - Obstructive sleep apnea (adult) (pediatric) Status: Chronic Assessment and Plan: CPAP initially held due to COVID infection, although it has been roughly >2 weeks since symptom onset and patient having difficulty controlling her breathing Will resume CPAP today Time Spent With Patient Time with patient: 25 - 35 minutes Subjective Date/time seen: 10/16/20 14:34 Interval history: Patient is a 70 yo F with history of DMII, gout, HTN, and SUMAYA and recent COVID pneumonia (diagnosed 09/30/20) who is seen in follow up for acute respiratory failure with hypoxia and suspected UTI. Date of Service 10/16/2020: She reports she is feeling better today, but whenever she went to sit up on the side of the bed earlier she became very short of breath. She reports a slight headache and pain to her right eye which she believes is from the oxygen level. She is now resting comfortably again back in bed. She denies any fevers, chills, chest pain, cough, nausea, vomiting, leg swelling, calf pain or any other symptoms at this time. Review of Systems Review of Systems: All systems reviewed & are unremarkable except as noted in HPI and below Exam Narrative: Exam Narrative: General: 70-year-old woman laying flat in bed with head elevated at 45 degrees. Resting comfortably on High Flow Nasal Canula, not much dyspnea with talking. Appears comfortable. In no acute distress. Skin: No jaundice or cyanosis. Good skin turgor. Neck: Full range of motion. Supple. Respiratory: Lungs are fior
[2020-10-16] MEDS: hydrALAZINE HCL 20 MG/ML VIAL 10 MG IV PUSH (17:40)
[2020-10-16 17:59] LABS: Glucose Point of Care 287 (65-105)
--- NOTE | 2020-10-16 18:07 | PC.NURSE ---
1730 pt b/p was 188/90 hydralazine 10 mg given. pt denies any symptoms.
--- NOTE | 2020-10-16 19:05 | PC.NURSE ---
1904 called gay Zamora with recheck b/p , wants it rechecked in an hour, pt was given hydralaxine 10mg iv , and catapres po at 1740.
[2020-10-16] MEDS: INSULIN GLARGINE (*BKC) 100 UNITS/ML 10 UNITS SUB-Q (20:51)
[2020-10-16] MEDS: hydrALAZINE 10 MG TABLET PO (21:13)
[2020-10-16] MEDS: LORazepam INJ (*CRX) 2 MG/ML VIAL 0.5 MG IV PUSH (21:13)
[2020-10-16 21:44] LABS: Glucose Point of Care 398 (65-105)
[2020-10-16] MEDS: INSULIN ASPART (*BKC) 100 UNITS/ML 6 UNITS SUB-Q (23:03)
[2020-10-16] MEDS: ENALAPRILAT 1.25 MG/ML VIAL IV PUSH (23:33)
[2020-10-17] VITALS (12 sets, daily range): BP systolic 147–204; BP diastolic 70–100; PULSE 77–97; RESP 20–24; TEMP 36.2–36.8; O2SAT 91–100
[2020-10-17 00:34] LABS: Glucose Point of Care 259 (65-105)
[2020-10-17] MEDS: hydrALAZINE HCL 20 MG/ML VIAL 10 MG IV PUSH ×3 (01:42→18:02)
[2020-10-17 06:36] LABS: Hematocrit 32.1 % (37.0-47.0); Mean Corpuscular HGB Conc 34.3 g/dl (32-36); Mean Corpuscular Volume 84.7 fl (80-100); Mean Platelet Volume 9.6 fl (7.4-10.4); Platelet Count Result 382 k/mm3 (150-375); Red Blood Count 3.79 M/mm3 (4.2-5.4); Red Cell Distribution Width 14.3 % (11.5-14.5); White Blood Count 8.3 K/mm3 (4.5-10.0)
[2020-10-17] MEDS: traMADol HCL (*CRX) 50 MG TABLET PO ×2 (06:57→16:42)
[2020-10-17 07:03] LABS: Alanine Aminotransferase 57 U/L (4-35); Alkaline Phosphatase 95 U/L (38-126); Anion Gap 3 mmol/L (8-16); Aspartate Amino Transferase 38 U/L (14-36); Bilirubin,Total 0.5 mg/dL (0.2-1.3); Blood Urea Nitrogen 23 mg/dL (7-17); CRP 6.2 mg/dL (<1.0); Calcium 9.2 mg/dL (8.4-10.2); Carbon Dioxide 30 mmol/L (22-30); Chloride 105 mmol/L (98-107); Estimated CRCL calculation 62 ml/min; Estimated Glomerular Filt Rate 55; Glucose 192 mg/dL (65-105); Lactate Dehydrogenase 787 U/L (313-618); Potassium 4.7 mmol/L (3.4-5.0); Sodium 138 mmol/L (137-145)
[2020-10-17 08:33] LABS: Glucose Point of Care 166 (65-105)
[2020-10-17] MEDS: ALBUTEROL SULFATE (*SP) INHALER 2 PUFF INHALATION ×3 (08:56→20:30)
[2020-10-17] MEDS: DEXAMETHASONE SOD PHOS INJ 4 MG/ML VIAL 6 MG IV PUSH (08:57)
[2020-10-17] MEDS: ENOXAPARIN 40 MG/0.4 ML SYRINGE SUB-Q ×2 (08:57→20:29)
[2020-10-17] MEDS: calcitrioL 0.25 MCG CAPSULE PO (08:58)
[2020-10-17] MEDS: allopurinoL 300 MG TABLET PO (08:58)
[2020-10-17] MEDS: cloNIDine HCL 0.1 MG TABLET PO ×3 (08:58→16:42)
[2020-10-17] MEDS: LOSARTAN POTASSIUM 25 MG TABLET PO (08:58)
[2020-10-17] MEDS: INSULIN ASPART (*BKC) 100 UNITS/ML SUB-Q ×2 (12:42→17:49)
[2020-10-17 13:34] LABS: Glucose Point of Care 289 (65-105)
--- NOTE | 2020-10-17 15:54 | PM.IMPN ---
Progress Note: A&P Assessment and Plan (1) COVID-19: Code(s): U07.1 - COVID-19 Status: Acute Assessment and Plan: With acute respiratory failure with hypoxia; requiring high-flow nasal cannula in the past 24 hours; and currently on 12L. PE of of concern for hypoxia; CTA chest 10/14 was unremarkable for evidence of PE, although limited due to artifact; extensive patchy groundglass opacification throughout both lungs, compatible with pneumonia noted. ABG showed hypoxemia, although reduced hemoglobin elevated, possible mixed specimen. Diagnosed with COVID on 09/30. Placed on IV decadron from ED; home oral prednisone held for now. Patient has intermittent desaturations with movement getting to the commode. Will place her on bed rest at this time and place a Dias catheter since she is currently on 15 L high-flow nasal cannula in if she becomes any worse would have to move her down to IMU on Airvo Continue IV decadron IS Supportive care with Robitussin and Tylenol PRN Will do scheduled albuterol inhaler Prone position discussed at admission. Encouraged breathing exercises although she has difficulty comprehending/tolerating Wean O2 as tolerated PATIENT IS A FULL CODE (2) UTI (urinary tract infection): Code(s): N39.0 - Urinary tract infection, site not specified Status: Acute Assessment and Plan: Diagnosed prior to arrival and could not complete her course of Macrobid due to poor PO intake. UA suspicious for UTI; UCx Negative. Blood cultures obtained and NGTD thus far. No urinary complaints Rocephin given x 3 days Encourage PO intake Monitor (3) Gout: Code(s): M10.9 - Gout, unspecified Status: Chronic Assessment and Plan: Continue with allopurinol (4) Hypertension: Code(s): I10 - Essential (primary) hypertension Status: Chronic Assessment and Plan: BP elevated at 198/100, she was given IV hydralazine with improvement to 147/72. Will add amlodipine 5 mg daily Continue with losartan and clonidine hydralazine p.r.n. with parameters (5) DM2 (diabetes mellitus, type 2): Code(s): E11.9 - Type 2 diabetes mellitus without complications Status: Chronic Assessment and Plan: A1c 6.3%. Elevated glucose levels most likely due to steroids. Glucose this morning was 192. Continue with sliding scale insulin. Continue Accuchecks ACHS, hypoglycemia protocol, correctional insulin, diabetic diet Patient reportedly takes trulicity although this is not in her home medication list (6) Obstructive sleep apnea: Code(s): G47.33 - Obstructive sleep apnea (adult) (pediatric) Status: Chronic Assessment and Plan: CPAP initially held due to COVID infection, although it has been roughly >2 weeks since symptom onset and patient having difficulty controlling her breathing Will resume CPAP today Time Spent With Patient Time with patient: 25 - 35 minutes Subjective Date/time seen: 10/17/20 15:54 Interval history: Patient is a 70 yo F with history of DMII, gout, HTN, and SUMAYA and recent COVID pneumonia (diagnosed 09/30/20) who is seen in follow up for acute respiratory failure with hypoxia and suspected UTI. Date of Service 10/17/2020: She still has increased shortness of breath with any type of exertion, with getting up to the commode. She does report some with movement in using her incentive spirometer. She is now resting comfortably again back in bed. She denies any fevers, chills, chest pain, cough, nausea, vomiting, leg swelling, calf pain or any other symptoms at this time. Review of Systems Review of Systems: All systems reviewed & are unremarkable except as noted in HPI and below Exam Narrative:
[2020-10-17 18:29] LABS: Glucose Point of Care 340 (65-105)
[2020-10-17] MEDS: SODIUM CHLORIDE NASAL GEL 14.1 GM 1 APPLIC NASAL (20:29)
[2020-10-17] MEDS: INSULIN GLARGINE (*BKC) 100 UNITS/ML 10 UNITS SUB-Q (20:29)
[2020-10-17 22:18] LABS: Glucose Point of Care 439 (65-105)
[2020-10-17] MEDS: INSULIN GLARGINE (*BKC) 100 UNITS/ML SUB-Q (22:55)
[2020-10-17] MEDS: INSULIN ASPART (*BKC) 100 UNITS/ML 6 UNITS SUB-Q (22:55)
[2020-10-18] VITALS (11 sets, daily range): BP systolic 138–191; BP diastolic 56–108; PULSE 63–93; RESP 18–24; TEMP 36.2–36.6; O2SAT 88–100
[2020-10-18] MEDS: hydrALAZINE HCL 20 MG/ML VIAL 10 MG IV PUSH ×2 (00:19→05:05)
[2020-10-18] MEDS: ALBUTEROL SULFATE (*SP) INHALER 2 PUFF INHALATION ×4 (01:43→22:32)
[2020-10-18 06:42] LABS: Hemoglobin 11.3 g/dL (12.0-15.0); Mean Corpuscular HGB Conc 34.2 g/dl (32-36); Mean Corpuscular Hemoglobin 29.6 pg (26-34); Mean Corpuscular Volume 86.4 fl (80-100); Mean Platelet Volume 9.9 fl (7.4-10.4); Platelet Count Result 359 k/mm3 (150-375); Red Blood Count 3.82 M/mm3 (4.2-5.4); Red Cell Distribution Width 14.7 % (11.5-14.5); White Blood Count 8.2 K/mm3 (4.5-10.0)
[2020-10-18 07:03] LABS: Alanine Aminotransferase 61 U/L (4-35); Alkaline Phosphatase 88 U/L (38-126); Anion Gap 3 mmol/L (8-16); Aspartate Amino Transferase 39 U/L (14-36); Bilirubin,Total 0.4 mg/dL (0.2-1.3); Blood Urea Nitrogen 27 mg/dL (7-17); CRP 4.7 mg/dL (<1.0); Calcium 9.4 mg/dL (8.4-10.2); Carbon Dioxide 28 mmol/L (22-30); Chloride 105 mmol/L (98-107); Estimated CRCL calculation 76 ml/min; Estimated Glomerular Filt Rate > 60; Glucose 230 mg/dL (65-105); Lactate Dehydrogenase 740 U/L (313-618); Potassium 4.6 mmol/L (3.4-5.0); Sodium 136 mmol/L (137-145)
[2020-10-18] MEDS: calcitrioL 0.25 MCG CAPSULE PO (08:02)
[2020-10-18] MEDS: LOSARTAN POTASSIUM 25 MG TABLET PO (08:02)
[2020-10-18] MEDS: amLODIPine BESYLATE 5 MG TABLET PO (08:02)
[2020-10-18] MEDS: cloNIDine HCL 0.1 MG TABLET PO ×3 (08:02→17:05)
[2020-10-18] MEDS: ENOXAPARIN 40 MG/0.4 ML SYRINGE SUB-Q ×2 (08:03→22:31)
[2020-10-18] MEDS: allopurinoL 300 MG TABLET PO (08:03)
[2020-10-18] MEDS: DEXAMETHASONE SOD PHOS INJ 4 MG/ML VIAL 6 MG IV PUSH (08:03)
[2020-10-18 09:44] LABS: Glucose Point of Care 187 (65-105)
[2020-10-18 13:09] LABS: Glucose Point of Care 310 (65-105)
[2020-10-18] MEDS: INSULIN ASPART (*BKC) 100 UNITS/ML SUB-Q (13:10)
--- NOTE | 2020-10-18 13:28 | P.PNIM_ITS ---
Progress Note: A&P Assessment and Plan (1) COVID-19: Code(s): U07.1 - COVID-19 Status: Acute Assessment and Plan: With acute respiratory failure with hypoxia. * PE of concern for hypoxia; CTA chest 10/14 was unremarkable for evidence of PE, although limited due to artifact; extensive patchy groundglass opacification throughout both lungs, compatible with pneumonia noted. * ABG showed hypoxemia, although reduced hemoglobin elevated, possible mixed specimen. * She was diagnosed with COVID on 09/30. Placed on IV decadron from ED on 10/12/2020. She is out of the window for IV Remdesivir * She is on 15 L high-flow nasal cannula with intermittent use of non-rebreather which improves her hypoxia acutely, if she becomes any worse would have to move her down to IMU on Airvo * Patient is on bed rest for now as well as Dias catheter to prevent exertion and oxygen desaturations. * IS * Supportive care with Robitussin and Tylenol PRN * Will do scheduled albuterol inhaler * Prone position discussed at admission. Encouraged breathing exercises although she has difficulty comprehending/tolerating * Wean O2 as tolerated PATIENT IS A FULL CODE (2) UTI (urinary tract infection): Code(s): N39.0 - Urinary tract infection, site not specified Status: Acute Assessment and Plan: Diagnosed prior to arrival and could not complete her course of Macrobid due to poor PO intake. UA suspicious for UTI; UCx Negative. Blood cultures obtained and NGTD thus far. No urinary complaints * Rocephin given x 3 days * Encourage PO intake * Monitor (3) Gout: Code(s): M10.9 - Gout, unspecified Status: Chronic Assessment and Plan: * Continue with allopurinol (4) Hypertension: Code(s): I10 - Essential (primary) hypertension Status: Chronic Assessment and Plan: BP elevated at 191/101 this morning. Her morning medications were given with improvement of her blood pressure to 138/56. * Continue new BP medication amlodipine 5 mg daily * Continue with losartan and clonidine * hydralazine p.r.n. with parameters (5) DM2 (diabetes mellitus, type 2): Code(s): E11.9 - Type 2 diabetes mellitus without complications Status: Chronic Assessment and Plan: A1c 6.3%. Elevated glucose levels most likely due to steroids. * Glucose this morning was 230. Continue Accuchecks ACHS, hypoglycemia protocol, correctional insulin, diabetic diet * Patient reportedly takes trulicity although this is not in her home medication list (6) Obstructive sleep apnea: Code(s): G47.33 - Obstructive sleep apnea (adult) (pediatric) Status: Chronic Assessment and Plan: * CPAP initially held due to COVID infection, although it has been roughly >2 weeks since symptom onset and patient having difficulty controlling her breathing * Continue CPAP. Time Spent With Patient Time with patient: 25 - 35 minutes Subjective Date/time seen: 10/18/20 13:28 Interval history: Patient is a 70 yo F with history of DMII, gout, HTN, and SUMAYA and recent COVID pneumonia (diagnosed 09/30/20) who is seen in follow up for acute respiratory failure with hypoxia and suspected UTI. Date of Service 10/18/2020: She still has increased shortness of breath with any type of exertion, even with moving around in bed. She does report feeling
--- NOTE | 2020-10-18 13:28 | PM.IMPN ---
Progress Note: A&P Assessment and Plan (1) COVID-19: Code(s): U07.1 - COVID-19 Status: Acute Assessment and Plan: With acute respiratory failure with hypoxia. PE of concern for hypoxia; CTA chest 10/14 was unremarkable for evidence of PE, although limited due to artifact; extensive patchy groundglass opacification throughout both lungs, compatible with pneumonia noted. ABG showed hypoxemia, although reduced hemoglobin elevated, possible mixed specimen. She was diagnosed with COVID on 09/30. Placed on IV decadron from ED on 10/12/2020. She is out of the window for IV Remdesivir She is on 15 L high-flow nasal cannula with intermittent use of non-rebreather which improves her hypoxia acutely, if she becomes any worse would have to move her down to IMU on Airvo Patient is on bed rest for now as well as Dias catheter to prevent exertion and oxygen desaturations. IS Supportive care with Robitussin and Tylenol PRN Will do scheduled albuterol inhaler Prone position discussed at admission. Encouraged breathing exercises although she has difficulty comprehending/tolerating Wean O2 as tolerated PATIENT IS A FULL CODE (2) UTI (urinary tract infection): Code(s): N39.0 - Urinary tract infection, site not specified Status: Acute Assessment and Plan: Diagnosed prior to arrival and could not complete her course of Macrobid due to poor PO intake. UA suspicious for UTI; UCx Negative. Blood cultures obtained and NGTD thus far. No urinary complaints Rocephin given x 3 days Encourage PO intake Monitor (3) Gout: Code(s): M10.9 - Gout, unspecified Status: Chronic Assessment and Plan: Continue with allopurinol (4) Hypertension: Code(s): I10 - Essential (primary) hypertension Status: Chronic Assessment and Plan: BP elevated at 191/101 this morning. Her morning medications were given with improvement of her blood pressure to 138/56. Continue new BP medication amlodipine 5 mg daily Continue with losartan and clonidine hydralazine p.r.n. with parameters (5) DM2 (diabetes mellitus, type 2): Code(s): E11.9 - Type 2 diabetes mellitus without complications Status: Chronic Assessment and Plan: A1c 6.3%. Elevated glucose levels most likely due to steroids. Glucose this morning was 230. Continue Accuchecks ACHS, hypoglycemia protocol, correctional insulin, diabetic diet Patient reportedly takes trulicity although this is not in her home medication list (6) Obstructive sleep apnea: Code(s): G47.33 - Obstructive sleep apnea (adult) (pediatric) Status: Chronic Assessment and Plan: CPAP initially held due to COVID infection, although it has been roughly >2 weeks since symptom onset and patient having difficulty controlling her breathing Continue CPAP. Time Spent With Patient Time with patient: 25 - 35 minutes Subjective Date/time seen: 10/18/20 13:28 Interval history: Patient is a 70 yo F with history of DMII, gout, HTN, and SUMAYA and recent COVID pneumonia (diagnosed 09/30/20) who is seen in follow up for acute respiratory failure with hypoxia and suspected UTI. Date of Service 10/18/2020: She still has increased shortness of breath with any type of exertion, even with moving around in bed. She does report feeling better today. She does report some nasal congestion and postnasal drip. She denies any fevers, chills, chest pain, cough, nausea, vomiting, leg swelling, calf pain or any other symptoms at this time. Review of Systems Review of Systems: All systems reviewed & are unremarkable except as noted in HPI and below Exam Narrative: Exam Narrative: General: 70-year-old woman laying flat in bed w
[2020-10-18 17:27] LABS: Glucose Point of Care 413 (65-105)
[2020-10-18] MEDS: INSULIN ASPART (*BKC) 100 UNITS/ML 12 UNITS SUB-Q (17:31)
[2020-10-18] MEDS: INSULIN GLARGINE (*BKC) 100 UNITS/ML 14 UNITS SUB-Q (22:30)
[2020-10-18] MEDS: SODIUM CHLORIDE NASAL GEL 14.1 GM 1 APPLIC NASAL (22:32)
[2020-10-19] VITALS (9 sets, daily range): BP systolic 134–212; BP diastolic 49–86; PULSE 65–88; RESP 18–28; TEMP 36.1–36.9; O2SAT 92–98
[2020-10-19 00:52] LABS: Glucose Point of Care 324 (65-105)
[2020-10-19] MEDS: ALBUTEROL SULFATE (*SP) INHALER 2 PUFF INHALATION ×4 (01:19→20:49)
[2020-10-19] MEDS: guaiFENesin 12 HR 600 MG TABCR PO ×3 (01:19→20:49)
[2020-10-19] MEDS: ENOXAPARIN 40 MG/0.4 ML SYRINGE SUB-Q ×2 (08:00→20:49)
[2020-10-19] MEDS: amLODIPine BESYLATE 5 MG TABLET PO (08:00)
[2020-10-19] MEDS: allopurinoL 300 MG TABLET PO (08:00)
[2020-10-19] MEDS: LOSARTAN POTASSIUM 25 MG TABLET PO (08:00)
[2020-10-19] MEDS: cloNIDine HCL 0.1 MG TABLET PO ×3 (08:00→17:59)
[2020-10-19] MEDS: calcitrioL 0.25 MCG CAPSULE PO (08:00)
[2020-10-19] MEDS: DEXAMETHASONE SOD PHOS INJ 4 MG/ML VIAL 6 MG IV PUSH (08:01)
[2020-10-19 08:14] LABS: Glucose Point of Care 161 (65-105)
[2020-10-19] MEDS: INSULIN ASPART (*BKC) 100 UNITS/ML SUB-Q ×2 (13:13→18:00)
[2020-10-19 13:39] LABS: Glucose Point of Care 298 (65-105)
--- NOTE | 2020-10-19 15:33 | PM.IMPN ---
Progress Note: A&P Assessment and Plan (1) Acute hypoxemic respiratory failure due to COVID-19: Code(s): U07.1 - COVID-19; J96.01 - Acute respiratory failure with hypoxia Status: Acute Assessment and Plan: Secondary to COVID pneumonia. 10/19/2020: Improved today. She is on 9 L high-flow nasal cannula with intermittent use of non-rebreather which improves her hypoxia acutely, if she becomes any worse would have to move her down to IMU on Airvo IS. Supportive care with Robitussin and Tylenol PRN. Will do scheduled albuterol inhaler. Prone position discussed at admission. Encouraged breathing exercises although she has difficulty comprehending/tolerating. Wean O2 as tolerated (2) COVID-19: Code(s): U07.1 - COVID-19 Status: Acute Assessment and Plan: With acute respiratory failure with hypoxia. PE of concern for hypoxia; CTA chest 10/14 was unremarkable for evidence of PE, although limited due to artifact; extensive patchy groundglass opacification throughout both lungs, compatible with pneumonia noted. ABG showed hypoxemia, although reduced hemoglobin elevated, possible mixed specimen. She was diagnosed with COVID on 09/30. Placed on IV decadron from ED on 10/12/2020. She is out of the window for IV Remdesivir Patient is on bed rest for now as well as Dias catheter to prevent exertion and oxygen desaturations. Continue monitoring patient and administering IV Decadron. PATIENT IS A FULL CODE (3) UTI (urinary tract infection): Code(s): N39.0 - Urinary tract infection, site not specified Status: Acute Assessment and Plan: Diagnosed prior to arrival and could not complete her course of Macrobid due to poor PO intake. UA suspicious for UTI; UCx Negative. Blood cultures obtained and NGTD thus far. No urinary complaints Rocephin given x 3 days Encourage PO intake Monitor (4) Gout: Code(s): M10.9 - Gout, unspecified Status: Chronic Assessment and Plan: Continue with allopurinol (5) Hypertension: Code(s): I10 - Essential (primary) hypertension Status: Chronic Assessment and Plan: BP elevated at 143/85 this morning. Improved. Continue new BP medication amlodipine 5 mg daily Continue with losartan and clonidine hydralazine p.r.n. with parameters (6) DM2 (diabetes mellitus, type 2): Code(s): E11.9 - Type 2 diabetes mellitus without complications Status: Chronic Assessment and Plan: A1c 6.3%. Elevated glucose levels most likely due to steroids. Glucose this morning was 298. Continue Accuchecks ACHS, hypoglycemia protocol, correctional insulin, diabetic diet Patient reportedly takes trulicity although this is not in her home medication list (7) Obstructive sleep apnea: Code(s): G47.33 - Obstructive sleep apnea (adult) (pediatric) Status: Chronic Assessment and Plan: CPAP initially held due to COVID infection, although it has been roughly >2 weeks since symptom onset and patient having difficulty controlling her breathing Continue CPAP. Time Spent With Patient Time with patient: 25 - 35 minutes Subjective Date/time seen: 10/19/20 15:33 Interval history: Patient is a 70 yo F with history of DMII, gout, HTN, and SUMAYA and recent COVID pneumonia (diagnosed 09/30/20) who is seen in follow up for acute respiratory failure with hypoxia and suspected UTI. Date of Service 10/19/2020: She reports some improvement to her breathing today, but still having exertional symptoms and some nasal congestion. She does report feeling better today. She denies any fevers, chills, chest pain, cough, nausea, vomiting, leg swelling, calf pain or any ot
[2020-10-19] MEDS: DOCUSATE SODIUM 100 MG CAPSULE PO ×2 (17:58→20:49)
[2020-10-19 18:29] LABS: Glucose Point of Care 387 (65-105)
[2020-10-19] MEDS: INSULIN GLARGINE (*BKC) 100 UNITS/ML 14 UNITS SUB-Q (20:49)
[2020-10-19] MEDS: SODIUM CHLORIDE NASAL GEL 14.1 GM 1 APPLIC NASAL (20:49)
[2020-10-19 21:01] LABS: Glucose Point of Care 381 (65-105)
[2020-10-20] VITALS (7 sets, daily range): BP systolic 132–167; BP diastolic 65–83; PULSE 63–77; RESP 16–20; TEMP 35.9–36.6; O2SAT 93–98
[2020-10-20] MEDS: ALBUTEROL SULFATE (*SP) INHALER 2 PUFF INHALATION ×4 (02:25→20:37)
[2020-10-20 06:38] LABS: Hematocrit 33.9 % (37.0-47.0); Hemoglobin 11.6 g/dL (12.0-15.0); Mean Corpuscular HGB Conc 34.2 g/dl (32-36); Mean Corpuscular Hemoglobin 29.6 pg (26-34); Mean Corpuscular Volume 86.5 fl (80-100); Mean Platelet Volume 9.8 fl (7.4-10.4); Platelet Count Result 368 k/mm3 (150-375); Red Blood Count 3.92 M/mm3 (4.2-5.4); White Blood Count 11.8 K/mm3 (4.5-10.0)
[2020-10-20 07:03] LABS: Alanine Aminotransferase 61 U/L (4-35); Albumin Level 3.2 g/dL (3.5-5.1); Alkaline Phosphatase 77 U/L (38-126); Anion Gap 3 mmol/L (8-16); Aspartate Amino Transferase 34 U/L (14-36); Bilirubin,Total 0.6 mg/dL (0.2-1.3); Blood Urea Nitrogen 29 mg/dL (7-17); CRP 1.9 mg/dL (<1.0); Calcium 9.3 mg/dL (8.4-10.2); Carbon Dioxide 31 mmol/L (22-30); Chloride 102 mmol/L (98-107); Estimated CRCL calculation 62 ml/min; Estimated Glomerular Filt Rate 55; Glucose 205 mg/dL (65-105); Lactate Dehydrogenase 607 U/L (313-618); Potassium 4.5 mmol/L (3.4-5.0); Sodium 136 mmol/L (137-145)
[2020-10-20 08:10] LABS: Glucose Point of Care 164 (65-105)
[2020-10-20] MEDS: LOSARTAN POTASSIUM 25 MG TABLET PO (08:42)
[2020-10-20] MEDS: calcitrioL 0.25 MCG CAPSULE PO (08:42)
[2020-10-20] MEDS: amLODIPine BESYLATE 5 MG TABLET PO (08:42)
[2020-10-20] MEDS: DOCUSATE SODIUM 100 MG CAPSULE PO ×2 (08:42→20:37)
[2020-10-20] MEDS: cloNIDine HCL 0.1 MG TABLET PO ×3 (08:42→17:53)
[2020-10-20] MEDS: guaiFENesin 12 HR 600 MG TABCR PO ×2 (08:42→20:38)
[2020-10-20] MEDS: allopurinoL 300 MG TABLET PO (08:43)
[2020-10-20] MEDS: DEXAMETHASONE SOD PHOS INJ 4 MG/ML VIAL 6 MG IV PUSH (08:43)
[2020-10-20] MEDS: ENOXAPARIN 40 MG/0.4 ML SYRINGE SUB-Q ×2 (08:43→20:37)
--- NOTE | 2020-10-20 09:32 | PC.NURSE ---
Pt was up to chair for breakfast. started coughing spell. O2 at 5 lpm nasal cannula and 15lpm NRB. O2 dropped into low 80s. o2 on high flow cannula increased to 10 and then to 15. o2 increased to 90%. Pt helped back to bed. high flow cannula increased to 15lpm and continued 15lpm NRB. Pt started to calm down and o2 improved to 94%. LPM on high flow cannula reduced to 10lpm. pt calm and spo2 is at 92%. Will continue to monitor. Sarina Cabello. NOTIFIED.
--- NOTE | 2020-10-20 09:51 | PCPTNOTE ---
Holding on therapy this morning per nurse. Nurse stated patient required increased O2 and was put back to bed. Will attempt to see patient in afternoon.
[2020-10-20 12:20] LABS: Glucose Point of Care 232 (65-105)
[2020-10-20] MEDS: INSULIN ASPART (*BKC) 100 UNITS/ML SUB-Q ×2 (12:50→17:53)
--- NOTE | 2020-10-20 13:26 | PM.IMPN ---
Progress Note: A&P Assessment and Plan (1) Acute hypoxemic respiratory failure due to COVID-19: Code(s): U07.1 - COVID-19; J96.01 - Acute respiratory failure with hypoxia Status: Acute Assessment and Plan: Secondary to COVID pneumonia. 10/20/2020: Improved today. She is on 7 L high-flow nasal cannula with intermittent use of non-rebreather which improves her hypoxia acutely. Continue treatment and management. IS. Supportive care with Robitussin and Tylenol PRN. Will do scheduled albuterol inhaler. Prone position discussed at admission. Encouraged breathing exercises although she has difficulty comprehending/tolerating. Wean O2 as tolerated (2) COVID-19: Code(s): U07.1 - COVID-19 Status: Acute Assessment and Plan: With acute respiratory failure with hypoxia. PE of concern for hypoxia; CTA chest 10/14 was unremarkable for evidence of PE, although limited due to artifact; extensive patchy groundglass opacification throughout both lungs, compatible with pneumonia noted. ABG showed hypoxemia, although reduced hemoglobin elevated, possible mixed specimen. She was diagnosed with COVID on 09/30. Placed on IV decadron from ED on 10/12/2020. She is out of the window for IV Remdesivir Patient is on bed rest for now as well as Dias catheter to prevent exertion and oxygen desaturations. Continue monitoring patient and administering IV Decadron. PATIENT IS A FULL CODE (3) UTI (urinary tract infection): Code(s): N39.0 - Urinary tract infection, site not specified Status: Acute Assessment and Plan: Diagnosed prior to arrival and could not complete her course of Macrobid due to poor PO intake. UA suspicious for UTI; UCx Negative. Blood cultures obtained and NGTD thus far. No urinary complaints Rocephin given x 3 days Encourage PO intake Monitor (4) Gout: Code(s): M10.9 - Gout, unspecified Status: Chronic Assessment and Plan: Continue with allopurinol (5) Hypertension: Code(s): I10 - Essential (primary) hypertension Status: Chronic Assessment and Plan: BP elevated at 156/72 this morning, improved. Continue new BP medication amlodipine 5 mg daily Continue with losartan and clonidine hydralazine p.r.n. with parameters (6) DM2 (diabetes mellitus, type 2): Code(s): E11.9 - Type 2 diabetes mellitus without complications Status: Chronic Assessment and Plan: A1c 6.3%. Elevated glucose levels most likely due to steroids. Glucose this morning was 205. Continue Accuchecks ACHS, hypoglycemia protocol, correctional insulin, diabetic diet Patient reportedly takes trulicity although this is not in her home medication list (7) Obstructive sleep apnea: Code(s): G47.33 - Obstructive sleep apnea (adult) (pediatric) Status: Chronic Assessment and Plan: CPAP initially held due to COVID infection, although it has been roughly >2 weeks since symptom onset and patient having difficulty controlling her breathing Continue CPAP. Time Spent With Patient Time with patient: 25 - 35 minutes Subjective Date/time seen: 10/20/20 13:26 Interval history: Patient is a 70 yo F with history of DMII, gout, HTN, and SUMAYA and recent COVID pneumonia (diagnosed 09/30/20) who is seen in follow up for acute respiratory failure with hypoxia and suspected UTI. Date of Service 10/20/2020: She reports some improvement to her breathing today, but still having exertional symptoms and some nasal congestion. She was able to relief her nasal congestion by blowing her nose. She does report feeling better today. She denies any fevers, chills, chest pain, cough, nausea, vomiting, l
[2020-10-20 16:58] LABS: Glucose Point of Care 348 (65-105)
[2020-10-20] MEDS: INSULIN GLARGINE (*BKC) 100 UNITS/ML 14 UNITS SUB-Q (20:38)
[2020-10-20] MEDS: SODIUM CHLORIDE NASAL GEL 14.1 GM 1 APPLIC NASAL (20:38)
[2020-10-20 21:48] LABS: Glucose Point of Care 386 (65-105)
[2020-10-21] VITALS (7 sets, daily range): BP systolic 128–166; BP diastolic 58–77; PULSE 53–85; RESP 18–22; TEMP 36.2–36.6; O2SAT 90–100
[2020-10-21] MEDS: INSULIN ASPART (*BKC) 100 UNITS/ML SUB-Q ×4 (00:03→17:47)
[2020-10-21 08:07] LABS: Glucose Point of Care 121 (65-105)
[2020-10-21] MEDS: cloNIDine HCL 0.1 MG TABLET PO ×3 (09:07→17:48)
[2020-10-21] MEDS: LOSARTAN POTASSIUM 25 MG TABLET PO (09:07)
[2020-10-21] MEDS: ENOXAPARIN 40 MG/0.4 ML SYRINGE SUB-Q ×2 (09:07→21:35)
[2020-10-21] MEDS: DOCUSATE SODIUM 100 MG CAPSULE PO ×2 (09:07→21:35)
[2020-10-21] MEDS: calcitrioL 0.25 MCG CAPSULE PO (09:07)
[2020-10-21] MEDS: allopurinoL 300 MG TABLET PO (09:07)
[2020-10-21] MEDS: guaiFENesin 12 HR 600 MG TABCR PO ×2 (09:07→21:35)
[2020-10-21] MEDS: DEXAMETHASONE SOD PHOS INJ 4 MG/ML VIAL 6 MG IV PUSH (09:08)
[2020-10-21] MEDS: ALBUTEROL SULFATE (*SP) INHALER 2 PUFF INHALATION ×3 (09:08→21:34)
[2020-10-21] MEDS: amLODIPine BESYLATE 5 MG TABLET PO (09:08)
[2020-10-21 12:31] LABS: Glucose Point of Care 252 (65-105)
--- NOTE | 2020-10-21 14:13 | PM.IMPN ---
Progress Note: A&P Assessment and Plan (1) Lightheaded: Code(s): R42 - Dizziness and giddiness Status: Acute Assessment and Plan: The patient states she had been feeling well today, but when the nurse was in to give her her clonidine at 1:00 p.m. she felt lightheaded, diaphoretic, and think she may have passed out. The nurse stated that she appeared to look to the side and as if she was unresponsive for a second but her eyes were otherwise open and whenever he said her name she responded. She denies any similar symptoms like this in the past. I checked the patient's blood pressure and was found to be 210/100. She had just received her clonidine so we will recheck this and if IV hydralazine is needed will administer. Will also get a CT brain Will consider cause to be from TIA versus stroke also consider seizure activity, most likely it is secondary to feeling lightheaded because his pretty hot in her room, they could not get the air conditioner to work. Blood pressure most likely elevated due to anxiety from the episode of the head has occurred. Continue monitoring neuro checks and seizure precautions. (2) Acute hypoxemic respiratory failure due to COVID-19: Code(s): U07.1 - COVID-19; J96.01 - Acute respiratory failure with hypoxia Status: Acute Assessment and Plan: Secondary to COVID pneumonia. 10/21/2020: Improved today. She is on 4 L nasal cannula with intermittent use of non-rebreather which improves her hypoxia acutely. Continue treatment and management. IS. Supportive care with Robitussin and Tylenol PRN. Will do scheduled albuterol inhaler. Prone position discussed at admission. Encouraged breathing exercises although she has difficulty comprehending/tolerating. Wean O2 as tolerated (3) COVID-19: Code(s): U07.1 - COVID-19 Status: Acute Assessment and Plan: With acute respiratory failure with hypoxia. PE of concern for hypoxia; CTA chest 10/14 was unremarkable for evidence of PE, although limited due to artifact; extensive patchy groundglass opacification throughout both lungs, compatible with pneumonia noted. ABG showed hypoxemia, although reduced hemoglobin elevated, possible mixed specimen. She was diagnosed with COVID on 09/30. Placed on IV decadron from ED on 10/12/2020. She is out of the window for IV Remdesivir Patient is on bed rest for now as well as Dias catheter to prevent exertion and oxygen desaturations. Continue monitoring patient and administering IV Decadron. PATIENT IS A FULL CODE (4) UTI (urinary tract infection): Code(s): N39.0 - Urinary tract infection, site not specified Status: Acute Assessment and Plan: Diagnosed prior to arrival and could not complete her course of Macrobid due to poor PO intake. UA suspicious for UTI; UCx Negative. Blood cultures obtained and NGTD thus far. No urinary complaints Rocephin given x 3 days Encourage PO intake Monitor (5) Gout: Code(s): M10.9 - Gout, unspecified Status: Chronic Assessment and Plan: Continue with allopurinol (6) Hypertension: Code(s): I10 - Essential (primary) hypertension Status: Chronic Assessment and Plan: BP elevated at 149/67 this morning, improved. Continue new BP medication amlodipine 5 mg daily Continue with losartan and clonidine hydralazine p.r.n. with parameters (7) DM2 (diabetes mellitus, type 2): Code(s): E11.9 - Type 2 diabetes mellitus without complications Status: Chronic Assessment and Plan: A1c 6.3%. Elevated glucose levels most likely due to steroids. Glucose this morning was 121. She is on Glargine 14 Units HS as well as 3 Units Novolog TIDW
[2020-10-21 17:58] LABS: Glucose Point of Care 369 (65-105)
[2020-10-21] MEDS: INSULIN GLARGINE (*BKC) 100 UNITS/ML 14 UNITS SUB-Q (21:32)
[2020-10-21] MEDS: SODIUM CHLORIDE NASAL GEL 14.1 GM 1 APPLIC NASAL (21:35)
[2020-10-21 21:57] LABS: Glucose Point of Care 281 (65-105)
[2020-10-22] VITALS (10 sets, daily range): BP systolic 131–162; BP diastolic 59–79; PULSE 54–80; RESP 18–20; TEMP 36.3–37.1; O2SAT 91–98
[2020-10-22 06:12] LABS: Hematocrit 33.4 % (37.0-47.0); Hemoglobin 11.4 g/dL (12.0-15.0); Mean Corpuscular HGB Conc 34.1 g/dl (32-36); Mean Corpuscular Hemoglobin 29.5 pg (26-34); Mean Corpuscular Volume 86.5 fl (80-100); Mean Platelet Volume 9.7 fl (7.4-10.4); Platelet Count Result 294 k/mm3 (150-375); Red Blood Count 3.86 M/mm3 (4.2-5.4); Red Cell Distribution Width 15.3 % (11.5-14.5)
[2020-10-22 06:38] LABS: Alanine Aminotransferase 53 U/L (4-35); Alkaline Phosphatase 69 U/L (38-126); Anion Gap 2 mmol/L (8-16); Aspartate Amino Transferase 26 U/L (14-36); Bilirubin,Total 0.7 mg/dL (0.2-1.3); Blood Urea Nitrogen 30 mg/dL (7-17); CRP 1.5 mg/dL (<1.0); Calcium 9.1 mg/dL (8.4-10.2); Carbon Dioxide 31 mmol/L (22-30); Chloride 102 mmol/L (98-107); Estimated CRCL calculation 62 ml/min; Estimated Glomerular Filt Rate 55; Glucose 146 mg/dL (65-105); Lactate Dehydrogenase 538 U/L (313-618); Potassium 4.3 mmol/L (3.4-5.0); Sodium 135 mmol/L (137-145)
[2020-10-22 08:31] LABS: Glucose Point of Care 129 (65-105)
[2020-10-22] MEDS: ENOXAPARIN 40 MG/0.4 ML SYRINGE SUB-Q ×2 (09:24→21:29)
[2020-10-22] MEDS: calcitrioL 0.25 MCG CAPSULE PO (09:26)
[2020-10-22] MEDS: cloNIDine HCL 0.1 MG TABLET PO ×3 (09:26→18:02)
[2020-10-22] MEDS: allopurinoL 300 MG TABLET PO (09:26)
[2020-10-22] MEDS: guaiFENesin 12 HR 600 MG TABCR PO ×2 (09:26→21:29)
[2020-10-22] MEDS: LOSARTAN POTASSIUM 25 MG TABLET PO (09:26)
[2020-10-22] MEDS: amLODIPine BESYLATE 5 MG TABLET PO (09:26)
[2020-10-22] MEDS: DOCUSATE SODIUM 100 MG CAPSULE PO ×2 (09:26→21:29)
[2020-10-22] MEDS: ALBUTEROL SULFATE (*SP) INHALER 2 PUFF INHALATION ×3 (09:27→21:23)
--- NOTE | 2020-10-22 11:38 | PCNWS ---
Weekly nutritional screen. Spoke with patient today over the telephone due to COVID precautions. Patient is tolerating current diet with adequate intake. No further nutritional needs at this time.
--- NOTE | 2020-10-22 11:48 | PM.IMPN ---
Progress Note: A&P Assessment and Plan (1) Lightheaded: Code(s): R42 - Dizziness and giddiness Status: Acute Assessment and Plan: The patient states she had been feeling well today, but when the nurse was in to give her her clonidine at 1:00 p.m. she felt lightheaded, diaphoretic, and think she may have passed out. The nurse stated that she appeared to look to the side and as if she was unresponsive for a second but her eyes were otherwise open and whenever he said her name she responded. She denies any similar symptoms like this in the past. CT brain showed no acute abnormality. She was placed on seizure precautions and neurologic checks but she did not have any issues overnight. Most likely to be from feeling lightheaded from being too hot in her room. She does not have any neurologic symptoms at this time. Could have been a TIA from elevated blood pressure, but it seems less likely. Low likelihood of being seizure activity as well. Will stop precautions at this time. She will be moved to a different room with better air flow. Continue monitoring. (2) Acute hypoxemic respiratory failure due to COVID-19: Code(s): U07.1 - COVID-19; J96.01 - Acute respiratory failure with hypoxia Status: Acute Assessment and Plan: Secondary to COVID pneumonia. 10/22/2020: Improved today. She is on 3 L nasal cannula with oxygen at 96%. Continue monitoring with physical and occupational therapy Will need home oxygen evaluation prior to discharge Continue treatment and management. IS. Supportive care with Robitussin and Tylenol PRN. Prone position discussed at admission. Encouraged breathing exercises although she has difficulty comprehending/tolerating. Wean O2 as tolerated (3) COVID-19: Code(s): U07.1 - COVID-19 Status: Acute Assessment and Plan: With acute respiratory failure with hypoxia. PE of concern for hypoxia; CTA chest 1/17 was unremarkable for evidence of PE, although limited due to artifact; extensive patchy groundglass opacification throughout both lungs, compatible with pneumonia noted. ABG showed hypoxemia, although reduced hemoglobin elevated, possible mixed specimen. She was diagnosed with COVID on 09/30. Placed on IV decadron from ED on 10/12/2020. She is out of the window for IV Remdesivir Continue with PT and OT. Will have to remove Dias prior to discharge. Continue monitoring patient and administering IV Decadron. PATIENT IS A FULL CODE (4) UTI (urinary tract infection): Code(s): N39.0 - Urinary tract infection, site not specified Status: Acute Assessment and Plan: Diagnosed prior to arrival and could not complete her course of Macrobid due to poor PO intake. UA suspicious for UTI; UCx Negative. Blood cultures obtained and NGTD thus far. No urinary complaints Rocephin given x 3 days Encourage PO intake Monitor (5) Gout: Code(s): M10.9 - Gout, unspecified Status: Chronic Assessment and Plan: Continue with allopurinol (6) Hypertension: Code(s): I10 - Essential (primary) hypertension Status: Chronic Assessment and Plan: BP elevated at 162/72 this morning, improved. Continue new BP medication amlodipine 5 mg daily Continue with losartan and clonidine hydralazine p.r.n. with parameters (7) DM2 (diabetes mellitus, type 2): Code(s): E11.9 - Type 2 diabetes mellitus without complications Status: Chronic Assessment and Plan: A1c 6.3%. Elevated glucose levels most likely due to steroids. Glucose this morning was 146. Dexamethasone was discontinued 10/21/2020 after 10 days of therapy. May need to adjust her insulin that scheduled now that
[2020-10-22 12:42] LABS: Glucose Point of Care 196 (65-105)
[2020-10-22] MEDS: polyethylene glycoL 3350 17 GM POWD.PACK PO (12:52)
[2020-10-22] MEDS: INSULIN ASPART (*BKC) 100 UNITS/ML SUB-Q ×3 (12:53→18:03)
[2020-10-22 17:57] LABS: Glucose Point of Care 275 (65-105)
[2020-10-22] MEDS: INSULIN GLARGINE (*BKC) 100 UNITS/ML 14 UNITS SUB-Q (21:24)
[2020-10-22] MEDS: SODIUM CHLORIDE NASAL GEL 14.1 GM 1 APPLIC NASAL (21:29)
[2020-10-22 21:36] LABS: Glucose Point of Care 295 (65-105)
[2020-10-23] VITALS (15 sets, daily range): BP systolic 125–149; BP diastolic 56–71; PULSE 65–102; RESP 20–22; TEMP 36.6–36.8; O2SAT 76–98
[2020-10-23] MEDS: traMADol HCL (*CRX) 50 MG TABLET PO (02:21)
[2020-10-23] MEDS: ALBUTEROL SULFATE (*SP) INHALER 2 PUFF INHALATION ×4 (02:22→21:01)
[2020-10-23 08:18] LABS: Glucose Point of Care 125 (65-105)
[2020-10-23] MEDS: DOCUSATE SODIUM 100 MG CAPSULE PO ×2 (09:00→21:00)
[2020-10-23] MEDS: INSULIN ASPART (*BKC) 100 UNITS/ML SUB-Q ×4 (09:37→18:08)
[2020-10-23] MEDS: cloNIDine HCL 0.1 MG TABLET PO ×3 (09:37→18:09)
[2020-10-23] MEDS: allopurinoL 300 MG TABLET PO (09:38)
[2020-10-23] MEDS: ENOXAPARIN 40 MG/0.4 ML SYRINGE SUB-Q ×2 (09:38→21:00)
[2020-10-23] MEDS: calcitrioL 0.25 MCG CAPSULE PO (09:38)
[2020-10-23] MEDS: LOSARTAN POTASSIUM 25 MG TABLET PO (09:39)
[2020-10-23] MEDS: SALINE 0.65% NAS SOLN 44 ML BTL 1 SPRAY NASAL ×2 (09:39→21:01)
[2020-10-23] MEDS: amLODIPine BESYLATE 5 MG TABLET PO (09:39)
[2020-10-23] MEDS: guaiFENesin 12 HR 600 MG TABCR PO ×2 (09:40→21:00)
--- NOTE | 2020-10-23 11:58 | PCRCNOTE ---
PT UNABLE TO AMBULATE. SAT ON EDGE OF BED AND DESAT TO 75% INCREASED NASAL CANNULA TO 6 LITER, NO CHANGES IN SATS. PUT ON NONREBREATHER TO GET SATS BACK UP TO BASELINE. RN AWARE.
[2020-10-23 12:56] LABS: Glucose Point of Care 186 (65-105)
--- NOTE | 2020-10-23 17:02 | PM.IMPN ---
Progress Note: A&P Assessment and Plan (1) COVID-19: Code(s): U07.1 - COVID-19 Status: Acute Assessment and Plan: With acute respiratory failure with hypoxia; requiring 2L O2 NC at time of visit. PE of of concern for hypoxia; CTA chest 10/14 was unremarkable for evidence of PE, although limited due to artifact; extensive patchy groundglass opacification throughout both lungs, compatible with pneumonia noted. Diagnosed with COVID on 09/30. Placed on IV Decadron from ED and completed 10 days (10/21) Will do Home O2 eval; appears there was an attempt today, although patient desatted when sitting on edge of bed and was unable to ambulate; now back down to 2L O2 IS Supportive care with Robitussin and Tylenol PRN Continue scheduled albuterol inhaler Prone position discussed at admission. Encouraged her to get up out of bed as tolerated. Encouraged breathing exercises although she has difficulty comprehending/tolerating Wean O2 as tolerated Monitor tonight. Hopefully discharge in 1-2 days if improvement in O2 needs (2) Gout: Code(s): M10.9 - Gout, unspecified Status: Chronic Assessment and Plan: Continue with allopurinol (3) Hypertension: Code(s): I10 - Essential (primary) hypertension Status: Chronic Assessment and Plan: BP 120s sys most recently Continue with losartan and clonidine continue with added amlodipine; likely continue at discharge hydralazine p.r.n. with parameters (4) DM2 (diabetes mellitus, type 2): Code(s): E11.9 - Type 2 diabetes mellitus without complications Status: Chronic Assessment and Plan: A1c 6.3 Accuchecks ACHS, hypoglycemia protocol, correctional insulin, diabetic diet Patient reportedly takes trulicity although this is not in her home medication list Continue with Lantus 14 u QHS and Novolog 3 u TIDWM (5) Obstructive sleep apnea: Code(s): G47.33 - Obstructive sleep apnea (adult) (pediatric) Status: Chronic Assessment and Plan: CPAP initially held due to COVID infection, although it has been roughly >3 weeks since symptom onset and patient having difficulty controlling her breathing Continue CPAP (6) UTI (urinary tract infection): Code(s): N39.0 - Urinary tract infection, site not specified Status: Resolved Assessment and Plan: Diagnosed prior to arrival and could not complete her course of Macrobid due to poor PO intake. UA suspicious for UTI; UCx Negative. Blood cultures negative after 5 days x 2. No urinary complaints. Had her fernandez removed today. Rocephin given x 3 days earlier in stay. Encourage PO intake Monitor Additional Plan Patient had an isolated episode of lightheadedness on 10/21. Appears to have resolved. Unclear etiology although possible vasovagal episode vs less likely seizure or TIA. CT brain unremarkable. BP have been stable. Monitor for now Subjective Date/time seen: 10/23/20 17:02 Interval history: Patient is a 70 yo F with history of DMII, gout, HTN, and SUMAYA and recent COVID pneumonia (diagnosed 09/30/20) who is seen in follow up for acute respiratory failure with hypoxia likely due to COVID pneumonia. Patient states she feels better today. SOB has improved but still a bit SOB with movement. Otherwise patient overall feels better since I have seen her last week. Tolerating PO. Cough has improved. Denies headaches, cp/palpitations, n/v/d/c, abd pain, changes in BMs, dysuria, calf pain. Review of Systems Review of Systems: All systems reviewed & are unremarkable except as noted in HPI and below Exam Narrative: Exam Narrative: General: Patient initially lying supine in bed with head raised, in no acute d
[2020-10-23 17:39] LABS: Glucose Point of Care 258 (65-105)
[2020-10-23] MEDS: EUCERIN CREAM 120 GM JAR 1 APPLIC TOPICAL (21:00)
[2020-10-23] MEDS: INSULIN GLARGINE (*BKC) 100 UNITS/ML 14 UNITS SUB-Q (21:02)
[2020-10-23 21:07] LABS: Glucose Point of Care 314 (65-105)
[2020-10-23] MEDS: SODIUM CHLORIDE NASAL GEL 14.1 GM 1 APPLIC NASAL (22:29)
[2020-10-24] VITALS (13 sets, daily range): BP systolic 113–138; BP diastolic 61; PULSE 70–98; RESP 16–28; TEMP 36.2–37.1; O2SAT 86–99
[2020-10-24] MEDS: ALBUTEROL SULFATE (*SP) INHALER 2 PUFF INHALATION ×4 (01:49→20:23)
[2020-10-24 06:18] LABS: Hematocrit 29.5 % (37.0-47.0); Hemoglobin 9.9 g/dL (12.0-15.0); Mean Corpuscular HGB Conc 33.6 g/dl (32-36); Mean Corpuscular Hemoglobin 29.2 pg (26-34); Mean Platelet Volume 10.2 fl (7.4-10.4); Platelet Count Result 237 k/mm3 (150-375); Red Blood Count 3.39 M/mm3 (4.2-5.4); Red Cell Distribution Width 15.5 % (11.5-14.5); White Blood Count 7.4 K/mm3 (4.5-10.0)
[2020-10-24 07:06] LABS: Alanine Aminotransferase 41 U/L (4-35); Albumin Level 2.8 g/dL (3.5-5.1); Alkaline Phosphatase 62 U/L (38-126); Anion Gap 2 mmol/L (8-16); Aspartate Amino Transferase 25 U/L (14-36); Bilirubin,Total 0.6 mg/dL (0.2-1.3); Blood Urea Nitrogen 21 mg/dL (7-17); CRP 4.4 mg/dL (<1.0); Calcium 8.5 mg/dL (8.4-10.2); Carbon Dioxide 28 mmol/L (22-30); Chloride 105 mmol/L (98-107); Estimated CRCL calculation 68 ml/min; Estimated Glomerular Filt Rate > 60; Glucose 137 mg/dL (65-105); Potassium 4.2 mmol/L (3.4-5.0); Sodium 135 mmol/L (137-145)
[2020-10-24 08:15] LABS: Lactate Dehydrogenase 503 U/L (313-618)
[2020-10-24 08:24] LABS: Glucose Point of Care 140 (65-105)
--- NOTE | 2020-10-24 10:13 | PM.IMPN ---
Progress Note: A&P Assessment and Plan (1) COVID-19: Code(s): U07.1 - COVID-19 Status: Acute Assessment and Plan: With acute respiratory failure with hypoxia and evidence of Pneumonia on CTA chest. Requiring 2L O2 NC at time of visit. PE was of concern due to her hypoxia although CTA chest 10/14 was unremarkable for evidence of PE, although limited due to artifact; extensive patchy groundglass opacification throughout both lungs, compatible with pneumonia noted. Diagnosed with COVID on 09/30. Placed on IV Decadron from ED and completed 10 days (10/21). She appears to slowly improving Will do Home O2 eval soon IS Supportive care with Robitussin and Tylenol PRN Continue scheduled albuterol inhaler Prone position discussed at admission. Encouraged her to get up out of bed as tolerated. Encouraged breathing exercises although she has difficulty comprehending/tolerating Wean O2 as tolerated Monitor tonight. Hopefully discharge in 1-2 days if improvement in O2 needs (2) Shingles: Code(s): B02.9 - Zoster without complications Status: Acute Assessment and Plan: Supragluteal region with vesicular lesions at various sizes and stages suggestive of shingles. Bilateral in nature which is not typical for shingles. No evidence of disseminated disease. Wound Care consulted and appreciate recommendations Will initiate Valtrex 1 g PO TID for 7 days today. Will continue eucerin cream per Wound Care rec Monitor (3) Gout: Code(s): M10.9 - Gout, unspecified Status: Chronic Assessment and Plan: Continue with allopurinol (4) Hypertension: Code(s): I10 - Essential (primary) hypertension Status: Chronic Assessment and Plan: BP 120s sys most recently Continue with losartan and clonidine continue with added amlodipine; likely continue at discharge hydralazine p.r.n. with parameters (5) DM2 (diabetes mellitus, type 2): Code(s): E11.9 - Type 2 diabetes mellitus without complications Status: Chronic Assessment and Plan: A1c 6.3 Accuchecks ACHS, hypoglycemia protocol, correctional insulin, diabetic diet Patient reportedly takes trulicity although this is not in her home medication list Continue with Lantus 14 u QHS and Novolog 3 u TIDWM (6) Obstructive sleep apnea: Code(s): G47.33 - Obstructive sleep apnea (adult) (pediatric) Status: Chronic Assessment and Plan: CPAP initially held due to COVID infection, although it has been roughly >3 weeks since symptom onset and patient having difficulty controlling her breathing Continue CPAP (7) UTI (urinary tract infection): Code(s): N39.0 - Urinary tract infection, site not specified Status: Resolved Assessment and Plan: Diagnosed prior to arrival and could not complete her course of Macrobid due to poor PO intake. UA suspicious for UTI; UCx Negative. Blood cultures negative after 5 days x 2. No urinary complaints. Had her Dias removed today. Rocephin given x 3 days earlier in stay. Encourage PO intake Monitor Subjective Date/time seen: 10/24/20 10:13 Interval history: Patient is a 70 yo F with history of DMII, gout, HTN, and SUMAYA and recent COVID pneumonia (diagnosed 09/30/20) who is seen in follow up for acute respiratory failure with hypoxia likely due to COVID pneumonia. Patient states she feels better today. SOB has improved; less SOB with exertion. Cough has improved. Yesterday she noticed a rash above her buttocks; feels about the same as yesterday. Tolerating PO. Denies headaches, cp/palpitations, n/v/d/c, abd pain, changes in BMs, dysuria, calf pain. Review of Systems Review of Systems: All systems r
[2020-10-24] MEDS: ENOXAPARIN 40 MG/0.4 ML SYRINGE SUB-Q ×2 (10:48→20:24)
[2020-10-24] MEDS: amLODIPine BESYLATE 5 MG TABLET PO (10:49)
[2020-10-24] MEDS: guaiFENesin 12 HR 600 MG TABCR PO ×2 (10:49→20:25)
[2020-10-24] MEDS: LOSARTAN POTASSIUM 25 MG TABLET PO (10:49)
[2020-10-24] MEDS: cloNIDine HCL 0.1 MG TABLET PO ×3 (10:49→17:26)
[2020-10-24] MEDS: predniSONE 5 MG TABLET PO (10:49)
[2020-10-24] MEDS: allopurinoL 300 MG TABLET PO (10:49)
[2020-10-24] MEDS: calcitrioL 0.25 MCG CAPSULE PO (10:49)
[2020-10-24] MEDS: DOCUSATE SODIUM 100 MG CAPSULE PO ×2 (10:49→20:25)
[2020-10-24] MEDS: EUCERIN CREAM 120 GM JAR 1 APPLIC TOPICAL (10:50)
[2020-10-24] MEDS: valACYclovir HCL 500 MG TABLET 1000 MG PO ×3 (11:40→20:26)
[2020-10-24 12:30] LABS: Glucose Point of Care 191 (65-105)
[2020-10-24] MEDS: INSULIN ASPART (*BKC) 100 UNITS/ML SUB-Q ×3 (13:44→17:28)
[2020-10-24 17:27] LABS: Glucose Point of Care 301 (65-105)
[2020-10-24] MEDS: INSULIN GLARGINE (*BKC) 100 UNITS/ML 14 UNITS SUB-Q (20:23)
[2020-10-24] MEDS: SODIUM CHLORIDE NASAL GEL 14.1 GM 1 APPLIC NASAL (20:23)
[2020-10-24] MEDS: GABAPENTIN 100 MG CAPSULE PO (20:27)
[2020-10-24 21:06] LABS: Glucose Point of Care 301 (65-105)
[2020-10-25] VITALS (10 sets, daily range): BP systolic 130–143; BP diastolic 66–73; PULSE 65–99; RESP 18–20; TEMP 36.3–36.9; O2SAT 88–98
[2020-10-25] MEDS: valACYclovir HCL 500 MG TABLET 1000 MG PO ×3 (06:53→21:07)
[2020-10-25] MEDS: GABAPENTIN 100 MG CAPSULE PO ×2 (06:53→21:07)
[2020-10-25 08:51] LABS: Glucose Point of Care 118 (65-105)
[2020-10-25] MEDS: ENOXAPARIN 40 MG/0.4 ML SYRINGE SUB-Q ×2 (09:16→20:48)
[2020-10-25] MEDS: DOCUSATE SODIUM 100 MG CAPSULE PO ×2 (09:17→20:48)
[2020-10-25] MEDS: amLODIPine BESYLATE 5 MG TABLET PO (09:17)
[2020-10-25] MEDS: calcitrioL 0.25 MCG CAPSULE PO (09:17)
[2020-10-25] MEDS: guaiFENesin 12 HR 600 MG TABCR PO ×2 (09:17→20:48)
[2020-10-25] MEDS: allopurinoL 300 MG TABLET PO (09:17)
[2020-10-25] MEDS: LOSARTAN POTASSIUM 25 MG TABLET PO (09:17)
[2020-10-25] MEDS: cloNIDine HCL 0.1 MG TABLET PO ×3 (09:17→17:29)
[2020-10-25] MEDS: predniSONE 5 MG TABLET PO (09:17)
[2020-10-25] MEDS: EUCERIN CREAM 120 GM JAR 1 APPLIC TOPICAL (09:18)
[2020-10-25] MEDS: ALBUTEROL SULFATE (*SP) INHALER 2 PUFF INHALATION ×3 (09:18→20:47)
[2020-10-25] MEDS: INSULIN ASPART (*BKC) 100 UNITS/ML SUB-Q ×4 (09:18→17:34)
[2020-10-25 13:24] LABS: Glucose Point of Care 170 (65-105)
--- NOTE | 2020-10-25 15:36 | PM.IMPN ---
Progress Note: A&P Assessment and Plan (1) COVID-19: Code(s): U07.1 - COVID-19 Status: Acute Assessment and Plan: With acute respiratory failure with hypoxia and evidence of Pneumonia on CTA chest. Requiring 2L O2 NC at time of visit, with rest and ambulation. Earlier in stay, PE was of concern due to her hypoxia although CTA chest 10/14 was unremarkable for evidence of PE, although limited due to artifact; extensive patchy groundglass opacification throughout both lungs, compatible with pneumonia noted. Diagnosed with COVID on 09/30. Placed on IV Decadron from ED and completed 10 day course (finished 10/21). She appears to slowly improving Will do Home O2 eval tomorrow IS Supportive care with Robitussin and Tylenol PRN Continue scheduled albuterol inhaler Prone position discussed at admission; seemed intolerant. Encouraged her to get up out of bed as tolerated. Encouraged breathing exercises although she has difficulty comprehending/tolerating Wean O2 as tolerated Monitor tonight. Hopefully discharge tomorrow after Home O2 eval Patient requested me to call sister, Beth, about medical status. I discussed case with Beth and explained that patient will likely be ready for discharge tomorrow as she is now maintaining adequate O2 sats with 2L O2 even with ambulation and she could be discharged with Home O2. Beth adamant that patient cannot be discharged home as she is too weak and needs a few more days at the hospital, however, it was explained that from a medical standpoint, there was little to no reason to keep patient in the hospital as treatment now as is primarily supportive care which she can receive at home or at a rehab, which patient is refusing. She asked me to speak with the patient again about rehab; after this discussion with the patient, patient was still refusing rehab but was willing to talk with CC to discuss possible short stay rehab and what that entails. This was relayed to CC who would follow up. (2) Shingles: Code(s): B02.9 - Zoster without complications Status: Acute Assessment and Plan: Supragluteal region with vesicular lesions at various sizes and stages suggestive of shingles. Bilateral in nature which is not typical for shingles. However, no evidence of disseminated disease. Wound Care consulted and appreciate recommendations Will continue Valtrex 1 g PO TID for 7 days (through 10/30) Will continue eucerin cream per Wound Care rec Monitor (3) Gout: Code(s): M10.9 - Gout, unspecified Status: Chronic Assessment and Plan: Continue with allopurinol (4) Hypertension: Code(s): I10 - Essential (primary) hypertension Status: Chronic Assessment and Plan: BP 140s sys most recently Continue with losartan and clonidine continue with added amlodipine; likely continue at discharge hydralazine p.r.n. with parameters (5) DM2 (diabetes mellitus, type 2): Code(s): E11.9 - Type 2 diabetes mellitus without complications Status: Chronic Assessment and Plan: A1c 6.3 Accuchecks ACHS, hypoglycemia protocol, correctional insulin, diabetic diet Patient reportedly takes trulicity although this is not in her home medication list Continue with Lantus 14 u QHS and Novolog 3 u TIDWM (6) Obstructive sleep apnea: Code(s): G47.33 - Obstructive sleep apnea (adult) (pediatric) Status: Chronic Assessment and Plan: CPAP initially held due to COVID infection, although it has been roughly >3 weeks since symptom onset and patient having difficulty controlling her breathing Continue CPAP (7) UTI (urinary tract infection): Code(s): N39.0 - Urinary tract infection, site not specified Status
--- NOTE | 2020-10-25 16:09 | PCPTNOTE ---
I spoke with patient's sister Beth per patient's request to update patient progress. Beth was informed that patient is participating in therapy performing exercises, transfer training and gait. Patient is independent in bed mobility. SBA to independent in transfers from bed, chair, and commode. SBA gait 40ft in room maintaining SPO2 above 90% on 2L O2. Beth voices concerns of patient returning home. Beth states patient does not want to go to a SNF and they do not want Home Health due to Covid. I informed Beth that therapy will continue to follow patient daily. Recommended that Beth speak with patient and family regarding her concerns and any assist that may be needed following discharge.
[2020-10-25 18:00] LABS: Glucose Point of Care 285 (65-105)
[2020-10-25] MEDS: INSULIN GLARGINE (*BKC) 100 UNITS/ML 14 UNITS SUB-Q (20:47)
[2020-10-25] MEDS: SODIUM CHLORIDE NASAL GEL 14.1 GM 1 APPLIC NASAL (20:47)
[2020-10-25 21:15] LABS: Glucose Point of Care 307 (65-105)
[2020-10-26] VITALS (10 sets, daily range): BP systolic 152–161; BP diastolic 76–78; PULSE 66–92; RESP 18–20; TEMP 36.5–36.9; O2SAT 75–98
[2020-10-26] MEDS: GABAPENTIN 100 MG CAPSULE PO (05:52)
[2020-10-26] MEDS: traMADol HCL (*CRX) 50 MG TABLET PO (05:52)
[2020-10-26] MEDS: valACYclovir HCL 500 MG TABLET 1000 MG PO ×2 (05:52→12:41)
[2020-10-26 05:59] LABS: Hematocrit 29.6 % (37.0-47.0); Hemoglobin 10.1 g/dL (12.0-15.0); Mean Corpuscular HGB Conc 34.1 g/dl (32-36); Mean Corpuscular Hemoglobin 30.2 pg (26-34); Mean Corpuscular Volume 88.6 fl (80-100); Mean Platelet Volume 10.4 fl (7.4-10.4); Platelet Count Result 203 k/mm3 (150-375); Red Blood Count 3.34 M/mm3 (4.2-5.4); White Blood Count 6.9 K/mm3 (4.5-10.0)
[2020-10-26 06:13] LABS: Alanine Aminotransferase 51 U/L (4-35); Albumin Level 3.1 g/dL (3.5-5.1); Alkaline Phosphatase 71 U/L (38-126); Anion Gap 3 mmol/L (8-16); Aspartate Amino Transferase 29 U/L (14-36); Bilirubin,Total 0.6 mg/dL (0.2-1.3); Blood Urea Nitrogen 16 mg/dL (7-17); CRP 6.3 mg/dL (<1.0); Calcium 9.3 mg/dL (8.4-10.2); Carbon Dioxide 29 mmol/L (22-30); Chloride 107 mmol/L (98-107); Estimated CRCL calculation 62 ml/min; Estimated Glomerular Filt Rate 55; Glucose 114 mg/dL (65-105); Lactate Dehydrogenase 458 U/L (313-618); Potassium 4.4 mmol/L (3.4-5.0); Sodium 139 mmol/L (137-145)
[2020-10-26 06:18] LABS: Magnesium 1.9 mg/dL (1.6-2.3)
[2020-10-26] MEDS: ENOXAPARIN 40 MG/0.4 ML SYRINGE SUB-Q (09:37)
[2020-10-26] MEDS: predniSONE 5 MG TABLET PO (09:38)
[2020-10-26] MEDS: cloNIDine HCL 0.1 MG TABLET PO ×2 (09:38→12:41)
[2020-10-26] MEDS: LOSARTAN POTASSIUM 25 MG TABLET PO (09:38)
[2020-10-26] MEDS: guaiFENesin 12 HR 600 MG TABCR PO (09:38)
[2020-10-26] MEDS: amLODIPine BESYLATE 5 MG TABLET PO (09:38)
[2020-10-26] MEDS: allopurinoL 300 MG TABLET PO (09:38)
[2020-10-26] MEDS: DOCUSATE SODIUM 100 MG CAPSULE PO (09:38)
[2020-10-26] MEDS: calcitrioL 0.25 MCG CAPSULE PO (09:38)
[2020-10-26] MEDS: EUCERIN CREAM 120 GM JAR 1 APPLIC TOPICAL (09:39)
[2020-10-26] MEDS: INSULIN ASPART (*BKC) 100 UNITS/ML SUB-Q ×2 (09:39→12:41)
[2020-10-26] MEDS: ALBUTEROL SULFATE (*SP) INHALER 2 PUFF INHALATION (09:39)
[2020-10-26 09:55] LABS: Glucose Point of Care 121 (65-105)
--- NOTE | 2020-10-26 11:46 | HOMEO2EVAL ---
Home Oxygen Evaluation RC: Home Oxygen (O2) Evaluation Start: 10/26/20 07:09 Freq: ONCE Status: Active Protocol: RPE Activity Type Activity Date Activity User E-Sign Co-Sign Detail Recorded Client Recorded Date Recorded By Document 10/26/20 10:30 DARÍO [email or web address] 10/26/20 11:42 DARÍO Document 10/26/20 10:33 DARÍO [email or web address] 10/26/20 11:42 DARÍO Document 10/26/20 10:34 DARÍO [email or web address] 10/26/20 11:42 DARÍO Document 10/26/20 10:35 DARÍO [email or web address] 10/26/20 11:42 DARÍO Document 10/26/20 10:40 DARÍO [email or web address] 10/26/20 11:42 DARÍO Document 10/26/20 10:45 DARÍO [email or web address] 10/26/20 11:42 DARÍO 10/26/20 10/26/20 10/26/20 10:30 10:33 10:34 Home O2 Evaluation Test Phase Resting Exercise Exercise Oxygen Delivery Room Air Room Air Nasal Cannula Oxygen Flow Rate (L/min) 1 Pulse Oximetry (90-100 %) 93 82 L 84 L Pulse Rate (60-100 beats/min) 88 92 Treatment Charges O2 Evaluation 10/26/20 10/26/20 10/26/20 10:35 10:40 10:45 Home O2 Evaluation Test Phase Exercise Exercise Resting Oxygen Delivery Nasal Cannula Nasal Cannula Room Air Oxygen Flow Rate (L/min) 2 3 Pulse Oximetry (90-100 %) 86 L 90 93 Pulse Rate (60-100 beats/min) 85 Treatment Charges
--- NOTE | 2020-10-26 11:50 | PM.DS ---
DS: Admitting Diagnosis Admitting Diagnosis Admitting Diagnosis: COVID pneumonia, acute respiratory failure with hypoxia DS: Discharge Diagnosis Discharge Diagnosis (1) COVID-19: Code(s): U07.1 - COVID-19 Status: Acute Assessment and Plan: With acute respiratory failure with hypoxia and evidence of Pneumonia on CTA chest. Now on RA at time of visit, with rest. RT did home O2 eval and patient requires no oxygen with rest, 3 liters with activity. Earlier in stay, PE was of concern due to her hypoxia although CTA chest 10/14 was unremarkable for evidence of PE, although limited due to artifact; extensive patchy groundglass opacification throughout both lungs, compatible with pneumonia noted. Diagnosed with COVID on 09/30. Placed on IV Decadron from ED and completed 10 day course (finished 10/21). She appears to slowly improving Discharge today with HH therapy Home O2: no O2 with rest, 3 L with activity via NC IS Supportive care with Robitussin and Tylenol PRN Continue albuterol prn after discharge F/u with PCP (2) Shingles: Code(s): B02.9 - Zoster without complications Status: Acute Assessment and Plan: Supragluteal region with vesicular lesions at various sizes and stages suggestive of shingles. Bilateral in nature which is not typical for shingles. However, no evidence of disseminated disease. Differential would include herpes simplex, although this would be in an unusual location Wound Care consulted and appreciate recommendations Will continue Valtrex 1 g PO TID for 7 days (through 10/30) Continue local care F/u with PCP (3) Gout: Code(s): M10.9 - Gout, unspecified Status: Chronic Assessment and Plan: Continue with allopurinol (4) Hypertension: Code(s): I10 - Essential (primary) hypertension Status: Chronic Assessment and Plan: BP 160s sys most recently Continue with losartan and clonidine continue with added amlodipine; will continue at discharge hydralazine p.r.n. with parameters during stay (5) DM2 (diabetes mellitus, type 2): Code(s): E11.9 - Type 2 diabetes mellitus without complications Status: Chronic Assessment and Plan: A1c 6.3 Accuchecks ACHS, hypoglycemia protocol, correctional insulin, diabetic diet Patient reportedly takes trulicity although this is not in her home medication list Lantus 14 u QHS and Novolog 3 u TIDWM during stay (6) Obstructive sleep apnea: Code(s): G47.33 - Obstructive sleep apnea (adult) (pediatric) Status: Chronic Assessment and Plan: CPAP initially held due to COVID infection, although it has been roughly >3 weeks since symptom onset and patient having difficulty controlling her breathing Continue CPAP (7) UTI (urinary tract infection): Code(s): N39.0 - Urinary tract infection, site not specified Status: Resolved Assessment and Plan: Diagnosed prior to arrival and could not complete her course of Macrobid due to poor PO intake. UA suspicious for UTI; UCx Negative. Blood cultures negative after 5 days x 2. No urinary complaints. Had her Dias removed earlier in week. Rocephin given x 3 days earlier in stay. Encourage PO intake DS: Summary Hospital Course Reason for hospitalization: COVID PNA, acute respiratory failure with hypoxia Hospital Course: Date of arrival: 10/12/20 Date of discharge: 10/26/20 Patient is a 70 yo F with history of DMII, gout, HTN, and SUMAYA and recent COVID pneumonia (diagnosed 09/30/20) who presented to the ED on 10/22 with complaints of worsening SOB. She had tested positive for COVID on 09/30/20. While in the ED, she was found to desaturate to 87% on RA when standing up.
[2020-10-26 12:59] LABS: Glucose Point of Care 197 (65-105)
--- NOTE | 2020-10-26 15:47 | PC.NURSE ---
Patients sister Lynne called at 1545 to discuss concerns with patients breathing. Patient exerted herself trying to get from the car into the house and seemed to be struggling to catch her breath. I explained to the family the patient needed to be on the 3LNC with activity and room air with rest. It was explained to family that exerting herself the way she did would take a little bit for her to not feel short of breath. Spoke with patient Valerie on the phone and she stated she was not feeling short of breath and stated she had recovered and calmed herself down. I explained the need to return to the ED if she had prolonged shortness of breath or changes in mental status to seek medical attention immediately.
== END 2020-10-26 14:35 | disposition home health service (06) | DRG 177 ==
LOC: ANHED 12:18 → ANH3MEDSUR 17:18
PROVIDERS: Emergency Medicine; Nurse Practitioner; Physician Assistant; Admitting Provider Internal Medicine; Emergency Provider General Practice; PCP Internal Medicine; Visit Provider Physician Assistant
DX: U07.1 COVID-19 (principal); J12.82 Pneumonia due to coronavirus disease 2019; J96.01 Acute respiratory failure with hypoxia; N39.0 Urinary tract infection, site not specified; B02.9 Zoster without complications; R42 Dizziness and giddiness; I10 Essential (primary) hypertension; M10.9 Gout, unspecified; E11.9 Type 2 diabetes mellitus without complications; G47.33 Obstructive sleep apnea (adult) (pediatric); Z79.899 Other long term (current) drug therapy
CPT/HCPCS: 36415; 36600; 70450; 71045; 71275; 74018; 74176; 80053; 81001; 82375; 82728; 82805; 82948; 83036; 83050; 83605; 83615; 83735; 85025; 85027; 85380; 85610; 85730; 86140; 87040; 87086; 87088; 93005; 94618; 94640; 96361; 96374; 96375; 97110; 97116; 97161; 97165; 97530; 97535; 99285; A9270; J0360; J0696; J1100; J1650; J1815; J2060; J2270; J2405; J7030; J7512; Q9967

== ENCOUNTER 2023-05-07 07:01 | Inpatient (IN) | payer MEDICARE, SELFPAY ==
[2023-05-07] VITALS (22 sets, daily range): BP systolic 86–145; BP diastolic 35–62; PULSE 87–114; RESP 18–31; TEMP 36.2–38.9; O2SAT 91–99
--- NOTE | ~2023-05-07 | US_ITS ---
EXAMINATION: US abdomen limited DATE: 05/09/2023 09:15 INDICATION: Elevated liver enzymes TECHNIQUE: Multiple grayscale and Doppler ultrasound images of the abdomen were obtained. COMPARISON: CT, 05/07/2023 FINDINGS: The head and body of the pancreas are normal. The pancreatic tail is obscured by bowel gas. The liver is normal with normal echogenicity and echotexture. No surface nodularity. Normal hepatope marisela flow in the main portal vein. Stones are present in the gallbladder. There is gallbladder wall th ickening. The normal common bile duct measures 6 mm. There was no sonographic Benitez sign. IMPRESSION: 1. Cholelithiasis and gallbladder wall thickening without definite pericholecystic fluid or sonograph ic Benitez sign. Findings are equivocal for acute cholecystitis. Consider nuclear hepatobiliary scan. Reviewed, dictated and finalized at location A. IMPRESSION: 1. Cholelithiasis and gallbladder wall thickening without definite pericholecys tic fluid or sonographic Benitez sign. Findings are equivocal for acute cholecys titis. Consider nuclear hepatobiliary scan.
--- NOTE | ~2023-05-07 | XR_ITS ---
Portable chest x-ray Comparison: 10/12/2020 Clinical History: Shortness of breath Findings: There is bibasilar chronic interstitial disease, similar to prior exam. Cardiomediastinal silhouette is stable. Bones and soft tissues are unremarkable. Impression: Bibasilar chronic interstitial disease, similar to prior exam. Reviewed, dictated and finalized at location . Impression: Bibasilar chronic interstitial disease, similar to prior exam.
--- NOTE | ~2023-05-07 | CT_ITS ---
EXAMINATION: CT chest abdomen pelvis wo con DATE: 05/07/2023 15:32 INDICATION: Flank pain, sepsis . TECHNIQUE: Computed tomography (CT) of the chest, abdomen, and pelvis was performed with 100 mL Omnip aque-350 intravenous contrast. Automated exposure control and iterative reconstruction technique were employed. The dose-length product was 1592.03 mGy-cm. COMPARISON: [facility] 10/14/2020; CT abdomen pelvis 10/12/2020 FINDINGS: Motion artifact is present throughout the scan. CHEST: Thoracic aorta: No significant dilation. Mild arch calcification. Lung parenchyma and airways: Airways are clear. 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 Right basilar atelectasis and scarrin g. Mild bibasilar peripheral fibrosis, possible changes of usual interstitial pneumonitis. Thoracic inlet, axillae and chest wall: 14 mm calcified right thyroid nodule which requires no additi onal evaluation. Prominent but not pathologically enlarged bilateral axillary lymph nodes.. Mediastinum: No mass. Prominent but not pathologically enlarged mediastinal and right hilar lymph nod es. Small hiatal hernia. Heart and pericardium: Normal heart size. No pericardial effusion. Coronary artery calcifications: Mild. Pleura: No effusion or mass. Thoracic bones: No acute osseous finding in the chest. Stable mild anterior wedge deformity at T12. ABDOMEN/PELVIS: Liver: Normal. Biliary/Gallbladder: Gallbladder hydrops and cholelithiasis. Possible mild pericholecystic fluid, exa mination limited by motion. No bile duct dilation. Pancreas: Fatty atrophy. Spleen: Normal. Adrenals:No mass. Kidneys: Simple right midpole cyst. No suspicious mass, stone, or hydronephrosis. GI tract: No small or large bowel dilation. Appendix diameter 9 mm, with mild surrounding fat strandi ng. Mesentery/Peritoneum: No ascites, mass, or free air. Retroperitoneum: No mass Atherosclerotic abdominal aortic and/or arterial calcifications. Pelvis: Absent uterus. Urinary bladder decompressed by a Dias catheter. Prominent pelvic lymph nodes , not pathologic by size criteria. Soft Tissues: Soft tissues and body wall unremarkable. Abdominopelvic bones: No acute osseous finding in the abdomen/pelvis. IMPRESSION: Gallbladder hydrops with cholelithiasis and possible pericholecystic fluid (evaluation limited by mot ion). Consider right upper quadrant ultrasound for further evaluation. Mild appendix dilation, increased since the prior study, with mild periappendiceal inflammation, may represent acute uncomplicated appendicitis in the appropriate clinical context. Reviewed, dictated and finalized at location K. IMPRESSION: Gallbladder hydrops with cholelithiasis and possible pericholecystic fluid (constance luation limited by motion). Consider right upper quadrant ultrasound for furthe r evaluation. Mild appendix dilation, increased since the prior study, with mild periappendic eal inflammation, may represent acute uncomplicated appendicitis in the appropr iate clinical context.
--- NOTE | 2023-05-07 07:06 | ECG_ITS ---
Measurements Intervals [place] Rate: 109 P: 16 CA: 160 QRS: -5 QRSD: 89 T: 63 QT: 310 QTc: 418 Interpretive Statements SINUS TACHYCARDIA NONSPECIFIC T-WAVE ABNORMALITY ABNORMAL ECG COMPARED TO ECG 10/12/2020 11:26:59 SINUS TACHYCARDIA NOW PRESENT T-WAVE ABNORMALITY NOW PRESENT Electronically Signed On 05-07-2023 9:17:49 CDT by Hiro Teixeira M.D.
[2023-05-07 07:17] LABS: Basophils Percent Auto 0.2 % (0.2-1.2); Eosinophils Absolute Auto 0.1 K/mm3 (0-0.3); Hemoglobin 11.3 g/dL (12.0-15.0); Immature Granulocyte Absolute 0.04 K/mm3 (0.00-0.031); Immature Granulocyte Percent A 0.5 % (0-0.5); Lymphocytes Absolute Auto 1.46 K/mm3 (0.9-3.2); Lymphocytes Percent Auto 17.8 % (18.3-44.2); Mean Corpuscular HGB Conc 33.2 g/dl (32-36); Mean Corpuscular Hemoglobin 29.6 pg (26-34); Mean Platelet Volume 9.2 fl (7.4-10.4); Monocytes Absolute Auto 0.2 K/mm3 (0.1-0.6); Neutrophils Absolute Auto 6.4 K/mm3 (1.3-6.7); Neutrophils Percent Auto 78.5 % (45.5-73.1); Platelet Count Result 203 k/mm3 (150-375); Red Blood Count 3.82 M/mm3 (4.2-5.4); Red Cell Distribution Width 14.9 % (11.5-14.5); White Blood Count 8.2 K/mm3 (4.5-10.0)
[2023-05-07 07:28] LABS: Alanine Aminotransferase 47 U/L (6-35); Albumin Level 3.9 g/dL (3.5-5.1); Alkaline Phosphatase 122 U/L (38-126); Anion Gap 8 mmol/L (8-16); Aspartate Amino Transferase 84 U/L (14-36); Bilirubin,Total 0.8 mg/dL (0.2-1.3); Blood Urea Nitrogen 32 mg/dL (7-17); Calcium 9.8 mg/dL (8.4-10.2); Carbon Dioxide 28 mmol/L (22-30); Chloride 100 mmol/L (98-107); Estimated CRCL calculation 42 ml/min; Estimated Glomerular Filt Rate 37; Glucose 101 mg/dL (65-110); Lactic Acid Reflex 3.8 mmol/L (0.7-2.0); Potassium 4.1 mmol/L (3.4-5.0); Sodium 136 mmol/L (137-145)
[2023-05-07 07:37] LABS: INR 1.2; Prothrombin Time 16.3 Seconds (11.1-14.7)
[2023-05-07 07:38] LABS: Partial Thromboplastin Time 27.4 SECONDS (22.3-36.8)
[2023-05-07 07:39] LABS: NT Pro B Type Natriuretic Pept < 20 pg/mL (19.9-100); Troponin I 0.021 ng/mL (0.000-0.034)
--- NOTE | 2023-05-07 07:45 | ED.SOB ---
HPI - SOB/Dyspnea General Chief Complaint: Shortness of Breath/Dyspnea Stated Complaint: sob History of Present Illness HPI Narrative: This is a 73-year-old female, with past history of hypertension, hyperlipidemia, who presents to the emergency department complaining of diffuse myalgias, chills and shortness of breath. The patient states she woke this morning, feeling lightheaded, chills and shortness of breath. She also complains of nonbloody vomiting. She denies any known sick contacts or recent travel. Related Data Home Medications Medication Instructions Recorded Confirmed allopurinol 300 mg tablet 300 mg PO DAILY 10/12/20 10/12/20 calcitriol 0.25 mcg capsule 0.25 mcg PO DAILY 10/12/20 10/12/20 clonidine HCl 0.1 mg tablet 0.1 mg PO TID 10/12/20 10/12/20 ergocalciferol (vitamin D2) 1,250 1,250 mcg PO WEEKLY 10/12/20 10/12/20 mcg (50,000 unit) capsule losartan 25 mg tablet 25 mg PO DAILY 10/12/20 10/12/20 nitrofurantoin 100 mg PO BID 10/12/20 10/12/20 monohydrate/macrocrystals 100 mg capsule ondansetron HCl 4 mg tablet 4 mg PO PRN 10/12/20 10/12/20 prednisone 5 mg tablet 5 mg PO DAILY 10/12/20 10/12/20 tramadol 50 mg tablet 50 mg PO PRN 10/12/20 10/12/20 Allergies Allergy/AdvReac Type Severity Reaction Status Date / Time No Known Allergies Allergy Verified 10/12/20 11:27 Review of Systems Review of Systems: CONSTITUTIONAL: Fevers and chills denies sweats. ENT: Denies rhinorrhea, congestion, sore throat, or otalgia. CARDIOVASCULAR: Palpitations denies chest pain, or edema. RESPIRATORY: Denies cough or dyspnea. GASTROINTESTINAL: Nausea and vomiting denies abdominal pain, or diarrhea. GENITOURINARY: Denies dysuria or hematuria. SKIN: Denies rash or itching. MUSCULOSKELETAL: Diffuse myalgias denies back pain, joint pain NEUROLOGIC: Denies headache, numbness, dizziness, or weakness. PSYCHIATRIC: Denies anxiety or depression. [facility] Past Medical History Medical History DM2 (diabetes mellitus, type 2) Gout Hypertension Obstructive sleep apnea Unable to wear this week due to COVID. 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 She has 2 children. 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 She is not sure about her code status at this point emboli that she may want to be a DNR. She is a lifelong nonsmoker and does not use any alcohol or drugs. Smoking status: Never smoker Alcohol intake: never Substance use: never Substance use type: does not use Gender identity (if verbalized by the patient): Female Spiritual care concerns: No Exam Narrative: GENERAL: Well-developed, well-nourished, and in no acute distress. HEAD: Normocephalic, atraumatic. EYES: PERRLA and EOMI. ENT: Nares clear, no rhinorrhea or epistaxis. Mucous membranes moist. Oropharynx without tonsillar hypertrophy exudate or other lesions. NECK: Supple. No JVD CHEST: Rales noted in the bilateral lower posterior lung joseph, greater on the right than the left. No respiratory distress. No wheezes or rhonchi HEART: Tachycardic with regular rhythm. No murmur heard. Normal peripheral pulses. ABDOMEN: Soft, nontender, nondistended, normal active bowel sounds. EXTREMITIES: Normal range of motion. No edema. SKIN: W
[2023-05-07] MEDS: PROCHLORPERAZINE EDISYLATE 10 MG/2 ML VIAL IV PUSH (07:59)
[2023-05-07 08:08] LABS: Influenza A QL RT-PCR Negative (Negative); Influenza B QL RT-PCR Negative (Negative); SARS-CoV-2 RNA PCR Negative (Negative)
[2023-05-07] MEDS: SODIUM CHLORIDE 0.9% IV 3,100 ML/1,000 ML BAG 999 ML IV CONT (08:33)
[2023-05-07] MEDS: AZITHROMYCIN 500 MG/NS 250 ML 500 MG/250 ML BAG 250 MG IVPB (08:34)
[2023-05-07 09:03] LABS: Appearance Urine Turbid (Clear); Bacteria Urine 4+ /hpf; Bilirubin Urine Negative (Negative); Blood Urine 2+ (Negative); Color Urine Yellow (Yellow); Glucose Urine UA Negative (Negative); Hyaline Casts Urine Present /lpf; Ketones Urine Negative (Negative); Leukocyte Esterase Ur 3+ LEU/UL (Negative); Nitrate Urine Positive (Negative); Non Pathogenic Casts >20; Protein Urine 1+ mg/dL (Negative); Specific Grav Ur 1.013 (1.001-1.035); Squamous Epithelial Cell Urine Few /hpf (Few); Urobilinogen Urine 0.2 mg/dL (<2.0); WBC Clumps Urine Present /HPF; WBC Urine >100 /hpf; pH Urine 5.5 (5.0-9.0)
[2023-05-07 09:06] LABS: Add Urine Microscopic? YES
[2023-05-07] MEDS: traMADol HCL (*CRX) 25 MG TABLET PO (10:07)
[2023-05-07 10:15] LABS: Reflex Lactic Acid Yes or No Add Lactic
--- NOTE | 2023-05-07 11:18 | ADMGEN ---
This patient, Valerie Mcnulty, was admitted to Medical Room 260-01 at 1023. Patient/family oriented to hospital policies and general routines including ID bracelet, bed and alarms, visiting hours, pain management, procedures, bathroom and other care routines, personal items, smoking policy, room service/diet, and visiting hours. Information on how to activate the Rapid Response Team has been discussed. Patient/Family are encouraged to report perceived risks to care and to ask questions if they do not understand what they are told or what they should do.
--- NOTE | 2023-05-07 11:25 | PC.NURSE ---
pt stated she has no known allergies, but she does not want to eat shellfish derived foods due to having gout. shellfish added to pts allergies per request.
[2023-05-07 11:26] LABS: Lactic Acid 1.5 mmol/L (0.7-2.0)
[2023-05-07] MEDS: SODIUM CHLORIDE 0.9% IV 1,000 ML 125 ML IV CONT ×2 (11:47→23:54)
[2023-05-07 13:01] LABS: CRP 3.4 mg/dL (<1.0)
[2023-05-07 13:16] LABS: Procalcitonin 0.9 ng/mL
--- NOTE | 2023-05-07 13:27 | PM.IMHP ---
H&P: HPI History of Present Illness Date/Time: 05/07/23 14:35 Chief Complaint: Nausea, hypoxia Narrative: 73-year-old female with a past medical history of rheumatoid arthritis, essential hypertension, gout, diabetes mellitus and pulmonary embolism who presented to the ER via EMS with nausea vomiting and shortness of breath. 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 She reports her emesis was nonbloody nonbilious. She denies any urinary symptoms, dysuria hematuria or frequency. She called EMS to bring her into the ER. She was 88% on room air and was placed on 4 L by EMS but by the time she arrived to the hospital she was no longer hypoxic. She received Zofran be EMS and has had no further vomiting. She denies having any chest pain, cough or congestion. She reports of low back pain in the left lower flank. She denies any history of kidney stones or hematuria. She states that she has been on Eliquis for a couple of months due to history of a pulmonary embolism. On review of external med records that looks like her Eliquis was initiated in November. She does report calf pain that started after she arrived to the ER. She has not had any lower leg swelling. In the ER temperature was 100.3? but she spiked a T max of 102.1 after arrival on the floor. She was initially tachycardic and hypotensive in the ER. Her blood pressures were as low as 86/35. Her blood pressures normalized after 30 mL/kilos fluid bolus. Patient reports she just generally feels ill. She denies any abdominal pain. Her labs demonstrated mildly elevated LFTs but she has chronic AST elevation. I ordered a CT scan of her abdomen and pelvis and evidently accidentally added his CT of the chest at the same time. CT did demonstrate gallbladder hydrops and a mildly dilated appendix slightly more dilated than prior exam. But the patient has no reproducible pain in these areas. Review of Systems Review of Systems: 12 systems were reviewed with pertinent positives and negatives per HPI. Except as documented in the HPI, all other systems were reviewed and are negative. [facility] Past Medical History Medical History (Updated 05/07/23 @ 16:53 by Meenakshi Can DO) DM2 (diabetes mellitus, type 2) Gout Hypertension Obstructive sleep apnea Pulmonary embolism Rheumatoid arthritis Surgical History Surgical History History of hysterectomy for indication other than cancer Family History Family History Sibling Lupus Tobacco abuse Sibling Breast cancer 1 sister Lung cancer Another sister who has a history of smoking cigarettes Mother Heart disease Father Lung cancer Tobacco abuse Social History Social History (Updated 05/07/23 @ 16:44 by Meenakshi Can DO) Social History: The the patient is and lives alone. 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 She has 2 children. She is a lifelong nonsmoker and does not use any alcohol or drugs. Code status: She states she is unsure but is thinks that she may want to be a DNR. She does not have advanced directives in place. Surrogate decision maker: Beth Ángeljoe (sibling) Smoking status: Never smoker Second hand tobacco smoke exposure: No Alcohol intake: never Substance use: never Substance use type: does not use Lack of Transportation: No Lack of Food: Never True Current Housing: I Have Housing Concerned About Future Housing: No Difficulty Paying Gas/Electric Bills: No Difficulty Paying for Meds: No Currently Unemployed: No Education: High School Diploma/GED Difficulty w/ Childcare or Family Care: No Gender identity (if verbalized by the patient): Female Spiritual care concerns: No Meds Home Medicati
[2023-05-07] MEDS: ACETAMINOPHEN 325 MG TABLET 650 MG PO ×2 (13:52→21:38)
[2023-05-07] MEDS: calcitrioL 0.25 MCG CAPSULE PO ×2 (13:52→18:06)
[2023-05-07 17:13] LABS: Glucose Point of Care 75 mg/dl (65-105)
[2023-05-07] MEDS: APIXABAN 5 MG TABLET PO (18:06)
[2023-05-07 19:55] LABS: Glucose Point of Care 98 mg/dl (65-105)
[2023-05-08] VITALS (12 sets, daily range): BP systolic 149–183; BP diastolic 64–91; PULSE 95–115; RESP 17–18; TEMP 36.7–36.9; O2SAT 96–100
[2023-05-08] MEDS: ACETAMINOPHEN 325 MG TABLET 650 MG PO ×3 (01:40→18:11)
--- NOTE | 2023-05-08 02:46 | PC.NURSE ---
05/07/23 at 0600: reviewed all charting and documentation by carlos alberto desir
[2023-05-08 05:33] LABS: Anion Gap 3 mmol/L (8-16); Blood Urea Nitrogen 27 mg/dL (7-17); Calcium 8.8 mg/dL (8.4-10.2); Carbon Dioxide 22 mmol/L (22-30); Chloride 111 mmol/L (98-107); Estimated CRCL calculation 37 ml/min; Estimated Glomerular Filt Rate 32; Glucose 84 mg/dL (65-110); Potassium 3.8 mmol/L (3.4-5.0); Sodium 136 mmol/L (137-145)
[2023-05-08 06:07] LABS: Basophils Percent Auto 0.2 % (0.2-1.2); Eosinophils Absolute Auto 0.2 K/mm3 (0-0.3); Eosinophils Percent Auto 0.8 % (0-4.4); Hematocrit 32.6 % (37.0-47.0); Hemoglobin 10.9 g/dL (12.0-15.0); Immature Granulocyte Absolute 0.48 K/mm3 (0.00-0.031); Immature Granulocyte Percent A 2.6 % (0-0.5); Lymphocytes Absolute Auto 2.23 K/mm3 (0.9-3.2); Lymphocytes Percent Auto 11.8 % (18.3-44.2); Mean Corpuscular HGB Conc 33.4 g/dl (32-36); Mean Corpuscular Hemoglobin 29.9 pg (26-34); Mean Corpuscular Volume 89.6 fl (80-100); Mean Platelet Volume 10.8 fl (7.4-10.4); Monocytes Absolute Auto 2.2 K/mm3 (0.1-0.6); Monocytes Percent Auto 11.8 % (2.6-8.5); Neutrophils Absolute Auto 13.7 K/mm3 (1.3-6.7); Neutrophils Percent Auto 72.8 % (45.5-73.1); Platelet Count Result 187 k/mm3 (150-375); Red Blood Count 3.64 M/mm3 (4.2-5.4); White Blood Count 18.8 K/mm3 (4.5-10.0)
[2023-05-08 08:19] LABS: Glucose Point of Care 78 mg/dl (65-105)
--- NOTE | 2023-05-08 09:14 | PM.IMPN ---
Progress Note: A&P Assessment and Plan (1) Acute UTI: Code(s): N39.0 - Urinary tract infection, site not specified Status: Acute Assessment and Plan: U/A + UTI ER placed a fernandez for accurate I&Os. Will d/c this. On zosyn IVF Urine culture pending (2) Sepsis: Qualifiers: Acute renal failure type: unspecified Sepsis acute organ dysfunction status: with acute organ dysfunction Sepsis type: sepsis due to unspecified organism Severe sepsis acute organ dysfunction type: acute renal failure Severe sepsis shock status: without septic shock Qualified Code(s): A41.9 - Sepsis, unspecified organism; R65.20 - Severe sepsis without septic shock; N17.9 - Acute kidney failure, unspecified Code(s): A41.9 - Sepsis, unspecified organism Status: Acute Assessment and Plan: + Blood cultures with gram negative bacilli On Zosyn. Origin of infection is likely from UTI vs Appendicitis. CT scan had mild appendiceal inflammation and dilation. Will repeat blood cultures Thursday to document for clearance. (3) Transient hypotension: Code(s): I95.9 - Hypotension, unspecified Status: Acute Assessment and Plan: Presented with sepsis picture. Lactic was elevated, febrile, and hypotension. Fluid resuscitated and lactic cleared as well as hypotension resolved. Continue to hold anti-hypertensive agents at this time. Monitor BP Q 4 hours (4) DM2 (diabetes mellitus, type 2): Qualifiers: Diabetes mellitus complication status: without complication Diabetes mellitus penitentiary insulin use: without penitentiary use Qualified Code(s): E11.9 - Type 2 diabetes mellitus without complications Code(s): E11.9 - Type 2 diabetes mellitus without complications Status: Chronic Assessment and Plan: Accu checks and sliding scale insulin Q 6 accu checks if NPO Hypoglycemic protocol ordered (5) Pulmonary embolism: Qualifiers: Acute cor pulmonale presence: unspecified Chronicity: unspecified Pulmonary embolism type: unspecified Qualified Code(s): I26.99 - Other pulmonary embolism without acute cor pulmonale Code(s): I26.99 - Other pulmonary embolism without acute cor pulmonale Status: Acute Assessment and Plan: On Eliquis 5 mg PO BID Held tonight's dose and morning dose to make sure surgery does not want to intervene at this time. If no surgical intervention necessary then will restart. SCDs ordered (6) Obstructive sleep apnea: Code(s): G47.33 - Obstructive sleep apnea (adult) (pediatric) Status: Chronic Assessment and Plan: Autotitrating home settings ordered (7) Hypertension: Qualifiers: Hypertension type: primary hypertension Qualified Code(s): I10 - Essential (primary) hypertension Code(s): I10 - Essential (primary) hypertension Status: Chronic Assessment and Plan: See 3 (8) Appendicitis: Code(s): K37 - Unspecified appendicitis Status: Acute Assessment and Plan: CT abdomen and pelvis shows mild appendiceal inflammation and dilatation. Will consult surgery to make sure no surgical intervention is warranted. She is being covered with broad spectrum antibiotics. Subjective Date/time seen: 05/08/23 09:14 Interval history: Narrative: 73-year-old female with a past medical history of rheumatoid arthritis, essential hypertension, gout, diabetes mellitus and pulmonary embolism who presented to the ER via EMS with nausea vomiting and shortness of breath.? 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 She reports her emesis was nonbloody nonbilious.? She denies any urinary symptoms, dysuria hematuria or frequency.? She called EMS to bring her into the ER.? She was 88% on room air and was placed on 4 L by EMS but by the time she arrived to the hospital she was no longer hypoxic.? She received Zofr
[2023-05-08] MEDS: SODIUM CHLORIDE 0.9% IV 1,000 ML 125 ML IV CONT ×2 (10:15→17:07)
[2023-05-08] MEDS: PIPERACILLIN/TAZ 4.5G/NS 100ML 4.5 GM/100 ML BAG IVPB (10:15)
[2023-05-08] MEDS: calcitrioL 0.25 MCG CAPSULE PO ×3 (10:15→16:56)
[2023-05-08] MEDS: APIXABAN 5 MG TABLET PO (10:15)
[2023-05-08 10:20] LABS: Procalcitonin 72.9 ng/mL
[2023-05-08 12:05] LABS: Glucose Point of Care 132 mg/dl (65-105)
[2023-05-08] MEDS: PIPERACILLN/TAZ 3.375GM/NS50ML 3.375 GM/50 ML BAG IVPB ×2 (16:30→20:45)
[2023-05-08 16:51] LABS: Glucose Point of Care 116 mg/dl (65-105)
[2023-05-08] MEDS: MENTHOL 10% / METHYL SALICYLATE 15% 57 GM TUBE 1 APPLIC TOPICAL (16:57)
[2023-05-08] MEDS: traMADol HCL (*CRX) 50 MG TABLET PO (17:07)
[2023-05-08] MEDS: FUROSEMIDE 40 MG TABLET PO (18:11)
[2023-05-08] MEDS: LOSARTAN POTASSIUM 100 MG TABLET PO (18:11)
[2023-05-08 21:02] LABS: Glucose Point of Care 139 mg/dl (65-105)
--- NOTE | 2023-05-08 22:06 | ECG_ITS ---
Measurements Intervals [place] Rate: 103 P: 25 TN: 173 QRS: -4 QRSD: 94 T: 70 QT: 351 QTc: 460 Interpretive Statements SINUS TACHYCARDIA POSSIBLE ANTERIOR MYOCARDIAL INFARCTION , OF INDETERMINATE AGE [30 ms Q WAVE IN V3/V4, OR R < 0.2 mV IN V4] ABNORMAL ECG COMPARED TO ECG 05/07/2023 07:10:30 NO SIGNIFICANT CHANGES Electronically Signed On 05-09-2023 12:39:25 CDT by Hiro Teixeira M.D.
[2023-05-08] MEDS: cloNIDine HCL 0.1 MG TABLET 0.2 MG PO (22:56)
[2023-05-09] VITALS (8 sets, daily range): BP systolic 119–174; BP diastolic 68–99; PULSE 93–100; RESP 16–18; TEMP 36.4–37.3; O2SAT 96–100
[2023-05-09] MEDS: PIPERACILLN/TAZ 3.375GM/NS50ML 3.375 GM/50 ML BAG IVPB ×4 (02:45→21:00)
[2023-05-09 05:39] LABS: Basophils Percent Auto 0.2 % (0.2-1.2); Eosinophils Absolute Auto 0.3 K/mm3 (0-0.3); Eosinophils Percent Auto 1.6 % (0-4.4); Hematocrit 32.3 % (37.0-47.0); Immature Granulocyte Absolute 0.26 K/mm3 (0.00-0.031); Immature Granulocyte Percent A 1.4 % (0-0.5); Lymphocytes Absolute Auto 2.28 K/mm3 (0.9-3.2); Lymphocytes Percent Auto 12.3 % (18.3-44.2); Mean Corpuscular HGB Conc 34.1 g/dl (32-36); Mean Corpuscular Hemoglobin 29.6 pg (26-34); Mean Corpuscular Volume 86.8 fl (80-100); Monocytes Absolute Auto 2.3 K/mm3 (0.1-0.6); Monocytes Percent Auto 12.3 % (2.6-8.5); Neutrophils Absolute Auto 13.3 K/mm3 (1.3-6.7); Neutrophils Percent Auto 72.2 % (45.5-73.1); Platelet Count Result 152 k/mm3 (150-375); Red Blood Count 3.72 M/mm3 (4.2-5.4); Red Cell Distribution Width 14.6 % (11.5-14.5); White Blood Count 18.5 K/mm3 (4.5-10.0)
[2023-05-09 05:49] LABS: INR 1.5; Prothrombin Time 19.2 Seconds (11.1-14.7)
[2023-05-09 05:50] LABS: Alanine Aminotransferase 244 U/L (6-35); Albumin Level 3.3 g/dL (3.5-5.1); Alkaline Phosphatase 184 U/L (38-126); Anion Gap 3 mmol/L (8-16); Aspartate Amino Transferase 161 U/L (14-36); Bilirubin,Total 1.2 mg/dL (0.2-1.3); Blood Urea Nitrogen 17 mg/dL (7-17); Calcium 9.7 mg/dL (8.4-10.2); Carbon Dioxide 22 mmol/L (22-30); Chloride 112 mmol/L (98-107); Estimated CRCL calculation 42 ml/min; Estimated Glomerular Filt Rate 37; Glucose 123 mg/dL (65-110); Potassium 3.6 mmol/L (3.4-5.0); Sodium 137 mmol/L (137-145)
[2023-05-09 06:03] LABS: CRP 20.4 mg/dL (<1.0)
--- NOTE | 2023-05-09 07:37 | PM.IMPN ---
Progress Note: A&P Assessment and Plan (1) Acute UTI: Code(s): N39.0 - Urinary tract infection, site not specified Status: Acute Assessment and Plan: U/A + UTI ER placed a fernandez for accurate I&Os. Will d/c this. On Rocephin 2 grams Urine culture growing Ecoli, Bacteremia with ECOLI WBC improving 18.5-->12.6 (2) Sepsis: Qualifiers: Acute renal failure type: unspecified Sepsis acute organ dysfunction status: with acute organ dysfunction Sepsis type: sepsis due to unspecified organism Severe sepsis acute organ dysfunction type: acute renal failure Severe sepsis shock status: without septic shock Qualified Code(s): A41.9 - Sepsis, unspecified organism; R65.20 - Severe sepsis without septic shock; N17.9 - Acute kidney failure, unspecified Code(s): A41.9 - Sepsis, unspecified organism Status: Acute Assessment and Plan: + Blood cultures with gram negative bacilli, growing E-coli Urosepsis picture. 2 grams Rocephin q Will repeat blood cultures Thursday to document for clearance. (3) DM2 (diabetes mellitus, type 2): Qualifiers: Diabetes mellitus complication status: without complication Diabetes mellitus long term acute care registered nurse insulin use: without prison use Qualified Code(s): E11.9 - Type 2 diabetes mellitus without complications Code(s): E11.9 - Type 2 diabetes mellitus without complications Status: Chronic Assessment and Plan: Accu checks and sliding scale insulin Q 6 accu checks if NPO Hypoglycemic protocol ordered (4) Pulmonary embolism: Qualifiers: Acute cor pulmonale presence: unspecified Chronicity: unspecified Pulmonary embolism type: unspecified Qualified Code(s): I26.99 - Other pulmonary embolism without acute cor pulmonale Code(s): I26.99 - Other pulmonary embolism without acute cor pulmonale Status: Acute Assessment and Plan: On Eliquis 5 mg PO BID Resume SCDs ordered (5) Obstructive sleep apnea: Code(s): G47.33 - Obstructive sleep apnea (adult) (pediatric) Status: Chronic Assessment and Plan: Autotitrating home settings ordered (6) Hypertension: Qualifiers: Hypertension type: primary hypertension Qualified Code(s): I10 - Essential (primary) hypertension Code(s): I10 - Essential (primary) hypertension Status: Chronic Assessment and Plan: Presented with sepsis picture. Lactic was elevated, febrile, and hypotension. Fluid resuscitated and lactic cleared as well as hypotension resolved. Restarting all anti-hypertensives Continue tele, ST this morning but patient is anxious and in pain at this time. Monitor BP Q 4 hours (7) Appendicitis: Code(s): K37 - Unspecified appendicitis Status: Acute Assessment and Plan: CT abdomen and pelvis shows mild appendiceal inflammation and dilatation. No surgical intervention at this time. RUQ US shows gall bladder wall thickening. Again, no surgical intervention necessary at this time per surgery. (8) Rheumatoid arthritis: Code(s): M06.9 - Rheumatoid arthritis, unspecified Status: Acute Assessment and Plan: Active flare after holding steroids and DMARDs in setting with sepsis -restart prednisone, DMARDs, and folic acid. -Tramadol for pain Subjective Date/time seen: 05/10/23 07:37 Interval history: 73-year-old female with a past medical history of rheumatoid arthritis, essential hypertension, gout, diabetes mellitus and pulmonary embolism who presented to the ER via EMS with nausea vomiting and shortness of breath.? The patient reports that she suddenly woke up in the program schedule clerk hours with rigors and nausea with vomiting.? She reports her emesis was nonbloody nonbilious.? She denies any urinary symptoms, dysuria hematuria or frequency.? She called EMS to bring her into the ER.? She was 88% on room air and was placed on 4 L by EMS but by the time she arrived to the hosp
--- NOTE | 2023-05-09 08:24 | PM.IMPN ---
Progress Note: A&P Assessment and Plan (1) Acute UTI: Code(s): N39.0 - Urinary tract infection, site not specified Status: Acute Assessment and Plan: U/A + UTI ER placed a fernandez for accurate I&Os. Will d/c this. On zosyn IVF Urine culture with gram negative bacilli as well as blood cultures with gram negative bacilli 2 gram Rocephin ordered (2) Sepsis: Qualifiers: Acute renal failure type: unspecified Sepsis acute organ dysfunction status: with acute organ dysfunction Sepsis type: sepsis due to unspecified organism Severe sepsis acute organ dysfunction type: acute renal failure Severe sepsis shock status: without septic shock Qualified Code(s): A41.9 - Sepsis, unspecified organism; R65.20 - Severe sepsis without septic shock; N17.9 - Acute kidney failure, unspecified Code(s): A41.9 - Sepsis, unspecified organism Status: Acute Assessment and Plan: + Blood cultures with gram negative bacilli On Zosyn. Origin of infection is likely from UTI vs Appendicitis. CT scan had mild appendiceal inflammation and dilation. Will repeat blood cultures Thursday to document for clearance. (3) DM2 (diabetes mellitus, type 2): Qualifiers: Diabetes mellitus complication status: without complication Diabetes mellitus tactical response group officer insulin use: without fdc use Qualified Code(s): E11.9 - Type 2 diabetes mellitus without complications Code(s): E11.9 - Type 2 diabetes mellitus without complications Status: Chronic Assessment and Plan: Accu checks and sliding scale insulin Q 6 accu checks if NPO Hypoglycemic protocol ordered (4) Pulmonary embolism: Qualifiers: Acute cor pulmonale presence: unspecified Chronicity: unspecified Pulmonary embolism type: unspecified Qualified Code(s): I26.99 - Other pulmonary embolism without acute cor pulmonale Code(s): I26.99 - Other pulmonary embolism without acute cor pulmonale Status: Acute Assessment and Plan: On Eliquis 5 mg PO BID Held tonight's dose and morning dose to make sure surgery does not want to intervene at this time. If no surgical intervention necessary then will restart. SCDs ordered (5) Obstructive sleep apnea: Code(s): G47.33 - Obstructive sleep apnea (adult) (pediatric) Status: Chronic Assessment and Plan: Autotitrating home settings ordered (6) Hypertension: Qualifiers: Hypertension type: primary hypertension Qualified Code(s): I10 - Essential (primary) hypertension Code(s): I10 - Essential (primary) hypertension Status: Chronic Assessment and Plan: Initially hypotensive in setting of sepsis. Blood pressures have recovered. Home agents resumed. Q 4 VS (7) Appendicitis: Code(s): K37 - Unspecified appendicitis Status: Acute Assessment and Plan: CT abdomen and pelvis shows mild appendiceal inflammation and dilatation. Will consult surgery to make sure no surgical intervention is warranted. She is being covered with broad spectrum antibiotics. Subjective Date/time seen: 05/09/23 08:24 Interval history: Narrative: 73-year-old female with a past medical history of rheumatoid arthritis, essential hypertension, gout, diabetes mellitus and pulmonary embolism who presented to the ER via EMS with nausea vomiting and shortness of breath.? The patient reports that she suddenly woke up in the swage tender hours with rigors and nausea with vomiting.? She reports her emesis was nonbloody nonbilious.? She denies any urinary symptoms, dysuria hematuria or frequency.? She called EMS to bring her into the ER.? She was 88% on room air and was placed on 4 L by EMS but by the time she arrived to the hospital she was no longer hypoxic.? She received Zofran be EMS and has had no further vomiting.? She denies having any chest pain, cough or congestion.? She reports of low back pain in the left lower flank.? She denies
[2023-05-09 08:27] LABS: Glucose Point of Care 96 mg/dl (65-105)
[2023-05-09] MEDS: LIDOCAINE 5% PATCH 2 PATCH TRANSDERM (09:39)
[2023-05-09] MEDS: FUROSEMIDE 40 MG TABLET PO (09:39)
[2023-05-09] MEDS: LOSARTAN POTASSIUM 100 MG TABLET PO (09:39)
[2023-05-09] MEDS: calcitrioL 0.25 MCG CAPSULE PO ×3 (09:39→18:51)
[2023-05-09] MEDS: MENTHOL 10% / METHYL SALICYLATE 15% 57 GM TUBE 1 APPLIC TOPICAL (09:44)
[2023-05-09] MEDS: traMADol HCL (*CRX) 50 MG TABLET PO ×2 (09:46→18:51)
--- NOTE | 2023-05-09 09:55 | PM.CNGS ---
Assessment and Plan Assessment and plan (1) Sepsis: Qualifiers: Acute renal failure type: unspecified Sepsis acute organ dysfunction status: with acute organ dysfunction Sepsis type: sepsis due to unspecified organism Severe sepsis acute organ dysfunction type: acute renal failure Severe sepsis shock status: without septic shock Qualified Code(s): A41.9 - Sepsis, unspecified organism; R65.20 - Severe sepsis without septic shock; N17.9 - Acute kidney failure, unspecified Code(s): A41.9 - Sepsis, unspecified organism Status: Acute Assessment and Plan: patient is on broad-spectrum antibiotics and reports symptomatology is much improved since admission, etiology sepsis is not entirely clear but most likely secondary to urinary tract infection (2) Acute UTI: Code(s): N39.0 - Urinary tract infection, site not specified Status: Acute Assessment and Plan: continue broad based antibiotics per sepsis protocol (3) Appendicitis: Code(s): K37 - Unspecified appendicitis Status: Acute Assessment and Plan: some mild stranding around the appendix on CT, exam completely benign, tolerating diet, continue serial exams at this time and antibiotics (4) Cholecystitis with cholelithiasis: Code(s): K80.10 - Calculus of gallbladder with chronic cholecystitis without obstruction Status: Acute Assessment and Plan: CT and ultrasound reviewed, patient again completely asymptomatic, continue serial exams and antibiotics History of Present Illness Consult details Consult date: 05/09/23 Reason for consult: other ( possible appendicitis) Requesting physician: Meenakshi Can DO Narrative: The patient is a 73-year-old female presenting to the hospital complaining of nausea vomiting, chills, shortness of breath. Workup, including labs and imaging, was significant for sepsis likely secondary to UTI. The patient has been since admitted to the hospitalist service and started on IV antibiotics. CT scan of the abdomen and pelvis was suggestive of hydrops cholecystitis, cholelithiasis and possible early acute appendicitis. Of note, the patient reports no further nausea and vomiting and denies any abdominal pain. She is tolerating a diet this morning without issue. She reports normal bowel function. Review of Systems Review of Systems: All systems reviewed & are unremarkable except as noted in HPI and below PMFSH Past Medical History Medical History DM2 (diabetes mellitus, type 2) Gout Hypertension Obstructive sleep apnea Pulmonary embolism Rheumatoid arthritis Surgical History Surgical History History of hysterectomy for indication other than cancer Family History Family History Sibling Lupus Tobacco abuse Sibling Breast cancer 1 sister Lung cancer Another sister who has a history of smoking cigarettes Mother Heart disease Father Lung cancer Tobacco abuse Social History Social History Social History: The the patient is and lives alone. She is retired from working for the [employer]. She still works part-time job at . She has 2 children. She is a lifelong nonsmoker and does not use any alcohol or drugs. Code status: She states she is unsure but is thinks that she may want to be a DNR. She does not have advanced directives in place. Surrogate decision maker: Beth oCllier (sibling) Smoking status: Never smoker Second hand tobacco smoke exposure: No Alcohol intake: never Substance use: never Substance use type: does not use Lack of Transportation: No Lack of Food: Never True Current Housing: I Have Housing Concerned About Future Housing: No Difficulty Paying Gas/El
[2023-05-09] MEDS: cefTRIAXone 2 GM/NS 100 ML 2 GM/100 ML BAG IVPB (10:55)
[2023-05-09 11:51] LABS: Glucose Point of Care 137 mg/dl (65-105)
[2023-05-09] MEDS: ACETAMINOPHEN 325 MG TABLET 650 MG PO ×2 (13:48→20:53)
[2023-05-09 16:54] LABS: Glucose Point of Care 120 mg/dl (65-105)
[2023-05-09 20:23] LABS: Glucose Point of Care 147 mg/dl (65-105)
[2023-05-10] VITALS (9 sets, daily range): BP systolic 129–182; BP diastolic 45–92; PULSE 77–113; RESP 17–18; TEMP 36.6–36.8; O2SAT 95–99
[2023-05-10] MEDS: PIPERACILLN/TAZ 3.375GM/NS50ML 3.375 GM/50 ML BAG IVPB (03:02)
[2023-05-10 05:24] LABS: Basophils Percent Auto 0.2 % (0.2-1.2); Eosinophils Absolute Auto 0.4 K/mm3 (0-0.3); Eosinophils Percent Auto 3.1 % (0-4.4); Hematocrit 32.3 % (37.0-47.0); Hemoglobin 10.8 g/dL (12.0-15.0); Immature Granulocyte Absolute 0.08 K/mm3 (0.00-0.031); Immature Granulocyte Percent A 0.6 % (0-0.5); Lymphocytes Absolute Auto 2.31 K/mm3 (0.9-3.2); Lymphocytes Percent Auto 18.4 % (18.3-44.2); Mean Corpuscular HGB Conc 33.4 g/dl (32-36); Mean Corpuscular Hemoglobin 29.2 pg (26-34); Mean Corpuscular Volume 87.3 fl (80-100); Mean Platelet Volume 10.3 fl (7.4-10.4); Monocytes Absolute Auto 1.7 K/mm3 (0.1-0.6); Monocytes Percent Auto 13.5 % (2.6-8.5); Neutrophils Absolute Auto 8.1 K/mm3 (1.3-6.7); Neutrophils Percent Auto 64.2 % (45.5-73.1); Platelet Count Result 154 k/mm3 (150-375); Red Cell Distribution Width 14.8 % (11.5-14.5); White Blood Count 12.6 K/mm3 (4.5-10.0)
[2023-05-10 05:34] LABS: Alanine Aminotransferase 169 U/L (6-35); Albumin Level 3.1 g/dL (3.5-5.1); Alkaline Phosphatase 165 U/L (38-126); Anion Gap 6 mmol/L (8-16); Aspartate Amino Transferase 68 U/L (14-36); Bilirubin,Total 1.1 mg/dL (0.2-1.3); Blood Urea Nitrogen 13 mg/dL (7-17); Calcium 9.7 mg/dL (8.4-10.2); Carbon Dioxide 25 mmol/L (22-30); Chloride 108 mmol/L (98-107); Estimated CRCL calculation 42 ml/min; Estimated Glomerular Filt Rate 37; Glucose 102 mg/dL (65-110); Potassium 3.3 mmol/L (3.4-5.0); Sodium 139 mmol/L (137-145)
[2023-05-10] MEDS: hydrALAZINE HCL 20 MG/ML VIAL 10 MG IV PUSH (05:55)
[2023-05-10 08:16] LABS: Glucose Point of Care 112 mg/dl (65-105)
--- NOTE | 2023-05-10 09:52 | PM.IMPN ---
Progress Note: A&P Assessment and Plan (1) Acute UTI: Code(s): N39.0 - Urinary tract infection, site not specified Status: Acute Assessment and Plan: U/A + UTI ER placed a fernandez for accurate I&Os. Will d/c this. On Rocephin 2 grams Urine culture growing Ecoli, Bacteremia with ECOLI WBC improving 18.5-->12.6 (2) Sepsis: Qualifiers: Acute renal failure type: unspecified Sepsis acute organ dysfunction status: with acute organ dysfunction Sepsis type: sepsis due to unspecified organism Severe sepsis acute organ dysfunction type: acute renal failure Severe sepsis shock status: without septic shock Qualified Code(s): A41.9 - Sepsis, unspecified organism; R65.20 - Severe sepsis without septic shock; N17.9 - Acute kidney failure, unspecified Code(s): A41.9 - Sepsis, unspecified organism Status: Acute Assessment and Plan: + Blood cultures with gram negative bacilli, growing E-coli Urosepsis picture.? 2 grams Rocephin q Will repeat blood cultures Thursday to document for clearance. (3) DM2 (diabetes mellitus, type 2): Qualifiers: Diabetes mellitus superintendent marine oil terminal insulin use: without correction use Diabetes mellitus complication status: without complication Qualified Code(s): E11.9 - Type 2 diabetes mellitus without complications Code(s): E11.9 - Type 2 diabetes mellitus without complications Status: Chronic Assessment and Plan: Accu checks and sliding scale insulin Q 6 accu checks if NPO Hypoglycemic protocol ordered (4) Pulmonary embolism: Qualifiers: Pulmonary embolism type: unspecified Chronicity: unspecified Acute cor pulmonale presence: unspecified Qualified Code(s): I26.99 - Other pulmonary embolism without acute cor pulmonale Code(s): I26.99 - Other pulmonary embolism without acute cor pulmonale Status: Acute Assessment and Plan: On Eliquis 5 mg PO BID Resume SCDs ordered (5) Obstructive sleep apnea: Code(s): G47.33 - Obstructive sleep apnea (adult) (pediatric) Status: Chronic Assessment and Plan: Autotitrating home settings ordered (6) Hypertension: Qualifiers: Hypertension type: primary hypertension Qualified Code(s): I10 - Essential (primary) hypertension Code(s): I10 - Essential (primary) hypertension Status: Chronic Assessment and Plan: Presented with sepsis picture. Lactic was elevated, febrile, and hypotension. Fluid resuscitated and lactic cleared as well as hypotension resolved. Restarting all anti-hypertensives Continue tele, ST this morning but patient is anxious and in pain at this time. Monitor BP Q 4 hours (7) Appendicitis: Code(s): K37 - Unspecified appendicitis Status: Acute Assessment and Plan: CT abdomen and pelvis shows mild appendiceal inflammation and dilatation. No surgical intervention at this time. RUQ US shows gall bladder wall thickening. Again, no surgical intervention necessary at this time per surgery. (8) Rheumatoid arthritis: Code(s): M06.9 - Rheumatoid arthritis, unspecified Status: Acute Assessment and Plan: Active flare after holding steroids and DMARDs in setting with sepsis -restart prednisone, DMARDs, and folic acid. -Tramadol for pain Subjective Date/time seen: 05/10/23 09:52 Interval history: 73-year-old female with a past medical history of rheumatoid arthritis, essential hypertension, gout, diabetes mellitus and pulmonary embolism who presented to the ER via EMS with nausea vomiting and shortness of breath.? The patient reports that she suddenly woke up in the master tax advisor hours with rigors and nausea with vomiting.? She reports her emesis was nonbloody nonbilious.? She denies any urinary symptoms, dysuria hematuria or frequency.? She called EMS to bring her into the ER.? She was 88% on room air and was placed on 4 L by EMS but by the time she arrived to the hospital she was n
[2023-05-10] MEDS: calcitrioL 0.25 MCG CAPSULE PO ×3 (10:28→17:41)
[2023-05-10] MEDS: APIXABAN 5 MG TABLET PO ×2 (10:28→17:41)
[2023-05-10] MEDS: ERGOCALCIFEROL 50,000 UNITS CAPSULE 50000 UNITS PO (10:28)
[2023-05-10] MEDS: FUROSEMIDE 40 MG TABLET PO ×2 (10:28→17:40)
[2023-05-10] MEDS: traMADol HCL (*CRX) 50 MG TABLET PO ×2 (10:29→17:42)
[2023-05-10] MEDS: POTASSIUM CHLORIDE 10 MEQ ER TABLET PO ×2 (10:29→17:41)
[2023-05-10] MEDS: LOSARTAN POTASSIUM 100 MG TABLET PO (10:29)
[2023-05-10] MEDS: LIDOCAINE 5% PATCH 2 PATCH TRANSDERM (10:30)
[2023-05-10] MEDS: sulfaSALAzine 500 MG TABLET BY MOUTH (10:30)
[2023-05-10] MEDS: cloNIDine HCL 0.2 MG TABLET PO ×2 (10:31→17:40)
[2023-05-10] MEDS: cefTRIAXone 2 GM/NS 100 ML 2 GM/100 ML BAG IVPB (10:31)
[2023-05-10] MEDS: SODIUM CHLORIDE 0.9% IV 1,000 ML 50 ML IV CONT (10:33)
--- NOTE | 2023-05-10 11:17 | PM.PNGS ---
Progress Note: A&P Assessment and Plan (1) Cholecystitis with cholelithiasis: Code(s): K80.10 - Calculus of gallbladder with chronic cholecystitis without obstruction Status: Acute Assessment and Plan: exam benign, richelle diet, cont consevative mgmt c serial exams, abx (2) Appendicitis: Code(s): K37 - Unspecified appendicitis Status: Acute Assessment and Plan: exam benign, cont conservative mgmt c serial exams, abx Subjective Subjective Date/Time Seen: 05/10/23 11:17 Interval history: feels good, no acute issues, richelle diet, +normal bowel fxn Review of Systems Review of Systems: All systems reviewed & are unremarkable except as noted in HPI and below Exam Const: General: cooperative, comfortable and no acute distress Resp: Auscultation: clear to auscultation bilaterally Cardio: Rate: regular rate Rhythm: regular rhythm GI: Inspection: normal to inspection and non-distended GI Palp: No abdominal tenderness and Yes Soft to palpation Objective Data Vital Signs Vital Signs: Vital Signs - 24 hr 05/09/23 12:00 05/09/23 14:01 05/09/23 18:38 Temperature 36.7 C 37.3 C Pulse Rate 94 97 100 Respiratory Rate 16 16 Blood Pressure 145/70 H 150/76 H Pulse Oximetry 99 99 Oxygen Delivery 05/09/23 16:00 05/09/23 20:00 05/09/23 20:00 Temperature 36.8 C Pulse Rate 94 93 94 Respiratory Rate 18 Blood Pressure 164/96 H Pulse Oximetry 98 Oxygen Delivery 05/09/23 20:00 05/10/23 00:00 05/10/23 04:00 Temperature 36.8 C 36.7 C Pulse Rate 101 H 97 Respiratory Rate 18 18 Blood Pressure 174/85 H 182/92 H Pulse Oximetry 96 95 Oxygen Delivery Room Air 05/10/23 00:00 05/10/23 04:00 05/10/23 06:35 Temperature Pulse Rate 98 91 Respiratory Rate Blood Pressure 161/77 H Pulse Oximetry Oxygen Delivery 05/10/23 09:33 Temperature 36.7 C Pulse Rate 113 H Respiratory Rate 17 Blood Pressure 157/79 H Pulse Oximetry 97 Oxygen Delivery Intake/Output Intake/Output: Intake & Output 05/07/23 05/08/23 05/09/23 05/10/23 23:59 23:59 23:59 23:59 Intake Total 3500 3970 1650 410 Output Total 1200 2375 805 300 Balance 2300 1595 845 110 Meds/Results Medications: Active Medications Generic Name Dose Route Start Last Admin Trade Name Freq PRN Reason Stop Dose Admin Acetaminophen 650 mg 05/07/23 09:31 05/09/23 20:53 Acetaminophen 325 Mg Tablet PO 650 mg Q4H PRN Administration Mild Pain (1-3) or Fever Albuterol 2 puff 05/07/23 12:32 Albuterol Sulfate (*Sp) Aerosol 1 Puff INHALATION Q6HRT PRN shortness of breath or wheezing Allopurinol 300 mg 05/11/23 09:00 Allopurinol 300 Mg Tablet PO DAILY SYDNIE Apixaban 5 mg 05/07/23 17:00 05/10/23 10:28 Apixaban 5 Mg Tablet PO 5 mg BID SYDNIE Administration Calcitriol 0.25 mcg 05/07/23 13:00 05/10/23 10:28 Calcitriol 0.25 Mcg Capsule PO 0.25 mcg TID SYDNIE Administration Clonidine HCl 0.2 mg 05/10/23 09:00 05/10/23 10:31 Clonidine Hcl 0.2 Mg Tablet PO 0.2 mg BID SYDNIE Administration Dextrose 12.5 gm 05/07/23 13:26 Dextrose 50% 25 Gm/50 Ml Syringe IV PUSH PRN PRN Hypoglycemia Protocol Ergocalciferol 50,000 units 05/10/23 09:00 05/10/23 10:28 Ergocalciferol 50,000 Units Capsule PO 50,000 units WEEKLY SYDNIE Administration Folic Acid 1 mg 05/11/23 09:00 Folic Acid 1 Mg Tablet BY MOUTH DAILY SYDNIE Furosemide 40 mg 05/08/23 17:20 05/10/23 10:28 Furosemide 40 Mg Tablet PO 40 mg BID SYDNIE Administration Glucagon 1 mg 05/07/23 13:26 Glucagon For Inj 1 Mg Vial IM PRN PRN Hypoglycemia Protocol Glucose 15 gm 05/07/23 13:26 Glucose Oral Gel 15 Gm Of Glucse In 37.5 Gm Tube PO PRN PRN Hypoglycemia Protocol Guaifenesin 600 mg 05/10/23 09:40 Guaifenesin 12 Hr 600 Mg Tabcr PO Q12HR PRN Congestion Dextrose 1,000 mls @ 100 mls
[2023-05-10 11:50] LABS: Glucose Point of Care 127 mg/dl (65-105)
[2023-05-10 17:03] LABS: Glucose Point of Care 108 mg/dl (65-105)
[2023-05-10] MEDS: predniSONE 5 MG TABLET PO (17:40)
--- NOTE | 2023-05-10 18:56 | PC.NURSE ---
attempted to call Dr. Lacey, covering for Meagan Sorenson, in order to obtain order for Trulicity pen provided by patient family.
--- NOTE | 2023-05-10 19:36 | PHAR ---
TRULICITY (DULAGLUTIDE) 4.5 MG/0.5 ML INJECTOR PEN VERIFIED BY PHARMACY
[2023-05-10 20:06] LABS: Glucose Point of Care 165 mg/dl (65-105)
[2023-05-10] MEDS: sulfaSALAzine 500 MG TABLET 1000 MG BY MOUTH (20:30)
[2023-05-11] VITALS (11 sets, daily range): BP systolic 119–158; BP diastolic 49–88; PULSE 76–102; RESP 14–18; TEMP 36.3–36.7; O2SAT 97–100
[2023-05-11 05:22] LABS: Basophils Percent Auto 0.3 % (0.2-1.2); Eosinophils Absolute Auto 0.1 K/mm3 (0-0.3); Eosinophils Percent Auto 1.4 % (0-4.4); Hematocrit 30.9 % (37.0-47.0); Hemoglobin 10.4 g/dL (12.0-15.0); Immature Granulocyte Absolute 0.07 K/mm3 (0.00-0.031); Immature Granulocyte Percent A 0.7 % (0-0.5); Lymphocytes Absolute Auto 2.49 K/mm3 (0.9-3.2); Lymphocytes Percent Auto 26.6 % (18.3-44.2); Mean Corpuscular HGB Conc 33.7 g/dl (32-36); Mean Corpuscular Hemoglobin 29.2 pg (26-34); Mean Corpuscular Volume 86.8 fl (80-100); Monocytes Absolute Auto 1.5 K/mm3 (0.1-0.6); Monocytes Percent Auto 15.8 % (2.6-8.5); Neutrophils Absolute Auto 5.2 K/mm3 (1.3-6.7); Neutrophils Percent Auto 55.2 % (45.5-73.1); Platelet Count Result 171 k/mm3 (150-375); Red Blood Count 3.56 M/mm3 (4.2-5.4); Red Cell Distribution Width 14.7 % (11.5-14.5); White Blood Count 9.4 K/mm3 (4.5-10.0)
[2023-05-11 05:34] LABS: Alanine Aminotransferase 125 U/L (6-35); Albumin Level 3.2 g/dL (3.5-5.1); Alkaline Phosphatase 145 U/L (38-126); Anion Gap 4 mmol/L (8-16); Aspartate Amino Transferase 43 U/L (14-36); Bilirubin,Total 0.7 mg/dL (0.2-1.3); Blood Urea Nitrogen 14 mg/dL (7-17); Calcium 9.5 mg/dL (8.4-10.2); Carbon Dioxide 26 mmol/L (22-30); Chloride 106 mmol/L (98-107); Estimated CRCL calculation 48 ml/min; Estimated Glomerular Filt Rate 44; Glucose 111 mg/dL (65-110); Potassium 3.4 mmol/L (3.4-5.0); Sodium 136 mmol/L (137-145)
[2023-05-11] MEDS: SODIUM CHLORIDE 0.9% IV 1,000 ML 50 ML IV CONT (06:18)
[2023-05-11 08:11] LABS: Glucose Point of Care 87 mg/dl (65-105)
--- NOTE | 2023-05-11 08:16 | PM.IMPN ---
Progress Note: A&P Assessment and Plan (1) Acute UTI: Code(s): N39.0 - Urinary tract infection, site not specified Status: Acute Assessment and Plan: U/A + UTI ER placed a fernandez for accurate I&Os. Will d/c this. Urine culture growing Ecoli, Bacteremia with ECOLI WBC improving 18.5-->12.6-->9.4 MI slowly improving. Cr 1.20 today, GFR 44. Likely just needs one more day of IVF and then can d/c tomorrow. Transition to PO levaquin Q 48 hour dosing EOT 05/15 (2) Sepsis: Qualifiers: Acute renal failure type: unspecified Sepsis acute organ dysfunction status: with acute organ dysfunction Sepsis type: sepsis due to unspecified organism Severe sepsis acute organ dysfunction type: acute renal failure Severe sepsis shock status: without septic shock Qualified Code(s): A41.9 - Sepsis, unspecified organism; R65.20 - Severe sepsis without septic shock; N17.9 - Acute kidney failure, unspecified Code(s): A41.9 - Sepsis, unspecified organism Status: Acute Assessment and Plan: see above (3) DM2 (diabetes mellitus, type 2): Qualifiers: Diabetes mellitus complication status: without complication Diabetes mellitus buttermaker insulin use: without buttermaker use Qualified Code(s): E11.9 - Type 2 diabetes mellitus without complications Code(s): E11.9 - Type 2 diabetes mellitus without complications Status: Chronic Assessment and Plan: Accu checks and sliding scale insulin Q 6 accu checks if NPO Hypoglycemic protocol ordered (4) Pulmonary embolism: Qualifiers: Acute cor pulmonale presence: unspecified Chronicity: unspecified Pulmonary embolism type: unspecified Qualified Code(s): I26.99 - Other pulmonary embolism without acute cor pulmonale Code(s): I26.99 - Other pulmonary embolism without acute cor pulmonale Status: Acute Assessment and Plan: On Eliquis 5 mg PO BID Resume SCDs ordered (5) Obstructive sleep apnea: Code(s): G47.33 - Obstructive sleep apnea (adult) (pediatric) Status: Chronic Assessment and Plan: Autotitrating home settings ordered (6) Hypertension: Qualifiers: Hypertension type: primary hypertension Qualified Code(s): I10 - Essential (primary) hypertension Code(s): I10 - Essential (primary) hypertension Status: Chronic Assessment and Plan: Presented with sepsis picture. Lactic was elevated, febrile, and hypotension. Fluid resuscitated and lactic cleared as well as hypotension resolved. Restarting all anti-hypertensives Continue , ST this morning but patient is anxious and in pain at this time. Monitor BP Q 4 hours (7) Appendicitis: Code(s): K37 - Unspecified appendicitis Status: Acute Assessment and Plan: CT abdomen and pelvis shows mild appendiceal inflammation and dilatation. No surgical intervention at this time. RUQ US shows gall bladder wall thickening. Again, no surgical intervention necessary at this time per surgery. (8) Rheumatoid arthritis: Code(s): M06.9 - Rheumatoid arthritis, unspecified Status: Acute Assessment and Plan: Active flare after holding steroids and DMARDs in setting with sepsis -restart prednisone, DMARDs, and folic acid. -Tramadol for pain Plan MI slowly improving. Cr 1.20 today, GFR 44. Likely just needs one more day of IVF and then can d/c tomorrow. Transition to PO levaquin Q 48 hour dosing EOT 05/15 Subjective Date/time seen: 05/11/23 08:16 Interval history: 73-year-old female with a past medical history of rheumatoid arthritis, essential hypertension, gout, diabetes mellitus and pulmonary embolism who presented to the ER via EMS with nausea vomiting and shortness of breath.? The patient reports that she suddenly woke up in the identity management developer hours with rigors and nausea with vomiting.? She reports her emesis was nonbloody nonbilious.? She denies any urinary symptoms, dysuria hemat
[2023-05-11] MEDS: FUROSEMIDE 40 MG TABLET PO ×2 (09:50→17:55)
[2023-05-11] MEDS: LOSARTAN POTASSIUM 100 MG TABLET PO (09:50)
[2023-05-11] MEDS: POTASSIUM CHLORIDE 10 MEQ ER TABLET PO ×2 (09:50→17:55)
[2023-05-11] MEDS: ROSUVASTATIN 20 MG TABLET BY MOUTH (09:50)
[2023-05-11] MEDS: calcitrioL 0.25 MCG CAPSULE PO ×3 (09:50→17:55)
[2023-05-11] MEDS: FOLIC ACID 1 MG TABLET BY MOUTH (09:51)
[2023-05-11] MEDS: APIXABAN 5 MG TABLET PO ×2 (09:51→17:55)
[2023-05-11] MEDS: allopurinoL 300 MG TABLET PO (09:51)
[2023-05-11] MEDS: sulfaSALAzine 500 MG TABLET BY MOUTH (09:52)
[2023-05-11] MEDS: cloNIDine HCL 0.2 MG TABLET PO ×2 (09:52→17:55)
[2023-05-11] MEDS: cefTRIAXone 2 GM/NS 100 ML 2 GM/100 ML BAG IVPB (09:52)
[2023-05-11] MEDS: LIDOCAINE 5% PATCH 2 PATCH TRANSDERM (10:00)
[2023-05-11 12:20] LABS: Glucose Point of Care 102 mg/dl (65-105)
[2023-05-11 17:17] LABS: Glucose Point of Care 101 mg/dl (65-105)
[2023-05-11] MEDS: traMADol HCL (*CRX) 50 MG TABLET PO ×2 (17:54→23:46)
[2023-05-11 19:34] LABS: Glucose Point of Care 142 mg/dl (65-105)
[2023-05-11] MEDS: sulfaSALAzine 500 MG TABLET 1000 MG BY MOUTH (21:13)
[2023-05-12] VITALS: PULSE 86
[2023-05-12 04:00] VITALS: BP 158/77; PULSE 87; PULSE 89; RESP 17; TEMP 36.7; O2SAT 99
[2023-05-12 05:19] LABS: Basophils Percent Auto 0.3 % (0.2-1.2); Eosinophils Absolute Auto 0.3 K/mm3 (0-0.3); Eosinophils Percent Auto 3.5 % (0-4.4); Hematocrit 30.4 % (37.0-47.0); Hemoglobin 10.3 g/dL (12.0-15.0); Immature Granulocyte Absolute 0.03 K/mm3 (0.00-0.031); Immature Granulocyte Percent A 0.4 % (0-0.5); Lymphocytes Absolute Auto 2.92 K/mm3 (0.9-3.2); Lymphocytes Percent Auto 37.6 % (18.3-44.2); Mean Corpuscular HGB Conc 33.9 g/dl (32-36); Mean Corpuscular Hemoglobin 29.1 pg (26-34); Mean Corpuscular Volume 85.9 fl (80-100); Mean Platelet Volume 9.9 fl (7.4-10.4); Monocytes Absolute Auto 1.5 K/mm3 (0.1-0.6); Monocytes Percent Auto 19.3 % (2.6-8.5); Neutrophils Percent Auto 38.9 % (45.5-73.1); Platelet Count Result 187 k/mm3 (150-375); Red Blood Count 3.54 M/mm3 (4.2-5.4); Red Cell Distribution Width 14.4 % (11.5-14.5); White Blood Count 7.8 K/mm3 (4.5-10.0)
[2023-05-12 05:27] LABS: Alanine Aminotransferase 94 U/L (6-35); Albumin Level 3.3 g/dL (3.5-5.1); Alkaline Phosphatase 142 U/L (38-126); Anion Gap 5 mmol/L (8-16); Aspartate Amino Transferase 35 U/L (14-36); Bilirubin,Total 0.9 mg/dL (0.2-1.3); Blood Urea Nitrogen 17 mg/dL (7-17); Calcium 9.5 mg/dL (8.4-10.2); Carbon Dioxide 29 mmol/L (22-30); Chloride 105 mmol/L (98-107); Estimated CRCL calculation 58 ml/min; Estimated Glomerular Filt Rate 55; Glucose 95 mg/dL (65-110); Potassium 3.1 mmol/L (3.4-5.0); Sodium 139 mmol/L (137-145)
--- NOTE | 2023-05-12 07:14 | PM.IMPN ---
Progress Note: A&P Assessment and Plan (1) Acute UTI: Code(s): N39.0 - Urinary tract infection, site not specified Status: Acute Assessment and Plan: U/A + UTI ER placed a fernandez for accurate I&Os. Will d/c this. Urine culture growing Ecoli, Bacteremia with ECOLI WBC improving 18.5-->12.6-->9.4 MI slowly improving. Cr 1.0 today, GFR 58. Transition to PO levaquin Q 48 hour dosing EOT 05/15 (2) Sepsis: Qualifiers: Acute renal failure type: unspecified Sepsis acute organ dysfunction status: with acute organ dysfunction Sepsis type: sepsis due to unspecified organism Severe sepsis acute organ dysfunction type: acute renal failure Severe sepsis shock status: without septic shock Qualified Code(s): A41.9 - Sepsis, unspecified organism; R65.20 - Severe sepsis without septic shock; N17.9 - Acute kidney failure, unspecified Code(s): A41.9 - Sepsis, unspecified organism Status: Acute Assessment and Plan: see above (3) DM2 (diabetes mellitus, type 2): Qualifiers: Diabetes mellitus complication status: without complication Diabetes mellitus penitentiary insulin use: without buttermaker helper use Qualified Code(s): E11.9 - Type 2 diabetes mellitus without complications Code(s): E11.9 - Type 2 diabetes mellitus without complications Status: Chronic Assessment and Plan: Accu checks and sliding scale insulin Q 6 accu checks if NPO Hypoglycemic protocol ordered (4) Pulmonary embolism: Qualifiers: Acute cor pulmonale presence: unspecified Chronicity: unspecified Pulmonary embolism type: unspecified Qualified Code(s): I26.99 - Other pulmonary embolism without acute cor pulmonale Code(s): I26.99 - Other pulmonary embolism without acute cor pulmonale Status: Acute Assessment and Plan: On Eliquis 5 mg PO BID Resume SCDs ordered (5) Obstructive sleep apnea: Code(s): G47.33 - Obstructive sleep apnea (adult) (pediatric) Status: Chronic Assessment and Plan: Autotitrating home settings ordered (6) Hypertension: Qualifiers: Hypertension type: primary hypertension Qualified Code(s): I10 - Essential (primary) hypertension Code(s): I10 - Essential (primary) hypertension Status: Chronic Assessment and Plan: Presented with sepsis picture. Lactic was elevated, febrile, and hypotension. Fluid resuscitated and lactic cleared as well as hypotension resolved. Restarting all anti-hypertensives Continue tele, ST this morning but patient is anxious and in pain at this time. Monitor BP Q 4 hours (7) Appendicitis: Code(s): K37 - Unspecified appendicitis Status: Acute Assessment and Plan: CT abdomen and pelvis shows mild appendiceal inflammation and dilatation. No surgical intervention at this time. RUQ US shows gall bladder wall thickening. Again, no surgical intervention necessary at this time per surgery. (8) Rheumatoid arthritis: Code(s): M06.9 - Rheumatoid arthritis, unspecified Status: Acute Assessment and Plan: Active flare after holding steroids and DMARDs in setting with sepsis -restart prednisone, DMARDs, and folic acid. -Tramadol for pain Plan MI slowly improving. Cr 1.00 today, GFR 58. D/C today Transition to PO levaquin Q 48 hour dosing EOT 05/15 Subjective Date/time seen: 05/12/23 07:14 Interval history: 73-year-old female with a past medical history of rheumatoid arthritis, essential hypertension, gout, diabetes mellitus and pulmonary embolism who presented to the ER via EMS with nausea vomiting and shortness of breath.? The patient reports that she suddenly woke up in the glue maker bone hours with rigors and nausea with vomiting.? She reports her emesis was nonbloody nonbilious.? She denies any urinary symptoms, dysuria hematuria or frequency.? She called EMS to bring her into the ER.? She was 88% on room air and was placed on 4 L by EMS bu
--- NOTE | 2023-05-12 07:19 | PM.DS ---
DS: Admitting Diagnosis Discharge Date 05/12/23 Admitting Diagnosis UTI, Urosepsis DS: Discharge Diagnosis Discharge Diagnosis (1) Acute UTI: Code(s): N39.0 - Urinary tract infection, site not specified Status: Acute Assessment and Plan: U/A + UTI ER placed a fernandez for accurate I&Os. Will d/c this. Urine culture growing Ecoli, Bacteremia with ECOLI WBC improving 18.5-->12.6-->9.4 MI slowly improving. Cr 1.0 today, GFR 58. Transition to PO levaquin Q 48 hour dosing EOT 05/15 (2) Sepsis: Qualifiers: Acute renal failure type: unspecified Sepsis acute organ dysfunction status: with acute organ dysfunction Sepsis type: sepsis due to unspecified organism Severe sepsis acute organ dysfunction type: acute renal failure Severe sepsis shock status: without septic shock Qualified Code(s): A41.9 - Sepsis, unspecified organism; R65.20 - Severe sepsis without septic shock; N17.9 - Acute kidney failure, unspecified Code(s): A41.9 - Sepsis, unspecified organism Status: Acute Assessment and Plan: see above (3) DM2 (diabetes mellitus, type 2): Qualifiers: Diabetes mellitus complication status: without complication Diabetes mellitus shelter insulin use: without tank terminal gauger use Qualified Code(s): E11.9 - Type 2 diabetes mellitus without complications Code(s): E11.9 - Type 2 diabetes mellitus without complications Status: Chronic Assessment and Plan: Accu checks and sliding scale insulin Q 6 accu checks if NPO Hypoglycemic protocol ordered (4) Pulmonary embolism: Qualifiers: Acute cor pulmonale presence: unspecified Chronicity: unspecified Pulmonary embolism type: unspecified Qualified Code(s): I26.99 - Other pulmonary embolism without acute cor pulmonale Code(s): I26.99 - Other pulmonary embolism without acute cor pulmonale Status: Acute Assessment and Plan: On Eliquis 5 mg PO BID Resume SCDs ordered (5) Obstructive sleep apnea: Code(s): G47.33 - Obstructive sleep apnea (adult) (pediatric) Status: Chronic Assessment and Plan: Autotitrating home settings ordered (6) Hypertension: Qualifiers: Hypertension type: primary hypertension Qualified Code(s): I10 - Essential (primary) hypertension Code(s): I10 - Essential (primary) hypertension Status: Chronic Assessment and Plan: Presented with sepsis picture. Lactic was elevated, febrile, and hypotension. Fluid resuscitated and lactic cleared as well as hypotension resolved. Restarting all anti-hypertensives Continue , ST this morning but patient is anxious and in pain at this time. Monitor BP Q 4 hours (7) Appendicitis: Code(s): K37 - Unspecified appendicitis Status: Acute Assessment and Plan: CT abdomen and pelvis shows mild appendiceal inflammation and dilatation. No surgical intervention at this time. RUQ US shows gall bladder wall thickening. Again, no surgical intervention necessary at this time per surgery. (8) Rheumatoid arthritis: Code(s): M06.9 - Rheumatoid arthritis, unspecified Status: Acute Assessment and Plan: Active flare after holding steroids and DMARDs in setting with sepsis -restart prednisone, DMARDs, and folic acid. -Tramadol for pain Plan MI slowly improving. Cr 1.00 today, GFR 58. D/C today Transition to PO levaquin Q 48 hour dosing EOT 05/15 DS: Summary Hospital Course Hospital Course: Interval history: 73-year-old female with a past medical history of rheumatoid arthritis, essential hypertension, gout, diabetes mellitus and pulmonary embolism who presented to the ER via EMS with nausea vomiting and shortness of breath.? The patient reports that she suddenly woke up in the director experimental medicine hours with rigors and nausea with vomiting.? She reports her emesis was nonbloody nonbilious.? She denies any urinary symptoms, dysuria hematuria or frequency.? She
[2023-05-12 08:00] VITALS: PULSE 87
[2023-05-12 08:17] LABS: Glucose Point of Care 98 mg/dl (65-105)
[2023-05-12 08:41] VITALS: BP 161/86; PULSE 96; RESP 14; O2SAT 98
[2023-05-12] MEDS: POTASSIUM CHLORIDE 10 MEQ ER TABLET PO (08:42)
[2023-05-12] MEDS: sulfaSALAzine 500 MG TABLET BY MOUTH (08:43)
[2023-05-12] MEDS: ROSUVASTATIN 20 MG TABLET BY MOUTH (08:43)
[2023-05-12] MEDS: APIXABAN 5 MG TABLET PO (08:43)
[2023-05-12] MEDS: allopurinoL 300 MG TABLET PO (08:43)
[2023-05-12] MEDS: calcitrioL 0.25 MCG CAPSULE PO ×2 (08:43→14:01)
[2023-05-12] MEDS: LOSARTAN POTASSIUM 100 MG TABLET PO (08:43)
[2023-05-12] MEDS: FUROSEMIDE 40 MG TABLET PO (08:43)
[2023-05-12] MEDS: cloNIDine HCL 0.2 MG TABLET PO (08:43)
[2023-05-12] MEDS: FOLIC ACID 1 MG TABLET BY MOUTH (08:44)
[2023-05-12] MEDS: traMADol HCL (*CRX) 50 MG TABLET PO (08:44)
[2023-05-12] MEDS: POTASSIUM CHLORIDE 20 MEQ PACKET (FOR LIQUID) 40 MEQ PO (08:50)
[2023-05-12] MEDS: LIDOCAINE 5% PATCH 2 PATCH TRANSDERM (08:50)
[2023-05-12 10:00] VITALS: BP 145/69; PULSE 105; RESP 17; TEMP 36.4; O2SAT 97
[2023-05-12 12:00] VITALS: PULSE 100
[2023-05-12 12:36] LABS: Glucose Point of Care 121 mg/dl (65-105)
[2023-05-12] MEDS: levoFLOXacin 750 MG TABLET PO (14:01)
== END 2023-05-12 16:50 | disposition home or self-care (01) | DRG 872 ==
LOC: ANHED 09:31 → ANH2MED 09:44
PROVIDERS: Admitting Provider Student in an Organized Health Care Education/Training Program; Emergency Provider Preventive Medicine Aerospace Medicine; PCP Internal Medicine; Visit Provider Nurse Practitioner Acute Care
DX: A41.51 Sepsis due to Escherichia coli [E. coli] (principal); N39.0 Urinary tract infection, site not specified; N17.9 Acute kidney failure, unspecified; K80.10 Calculus of gallbladder with chronic cholecystitis without obstruction; R65.20 Severe sepsis without septic shock; I10 Essential (primary) hypertension; E78.5 Hyperlipidemia, unspecified; E11.9 Type 2 diabetes mellitus without complications; K37 Unspecified appendicitis; M06.9 Rheumatoid arthritis, unspecified; G47.33 Obstructive sleep apnea (adult) (pediatric); Z20.822 Contact with and (suspected) exposure to COVID-19; Z86.711 Personal history of pulmonary embolism; Z79.01 Long term (current) use of anticoagulants
CPT/HCPCS: 36415; 71045; 71250; 74176; 76705; 80048; 80053; 81001; 82948; 83605; 83735; 83880; 84145; 84484; 85025; 85610; 85730; 86140; 87040; 87077; 87086; 87186; 87636; 93005; 96361; 96365; 96375; 99285; A9270; G0378; J0360; J0456; J0696; J0780; J2543; J7030; J7512

== ENCOUNTER 2024-04-23 10:28 | Emergency (ER) | payer MEDICARE, SELFPAY ==
[2024-04-23 11:02] VITALS: BP 130/65; PULSE 103; RESP 18; TEMP 36.4; O2SAT 96
[2024-04-23 11:49] LABS: Influenza A QL RT-PCR Negative (Negative); Influenza B QL RT-PCR Negative (Negative); RSV RNA, RT-PCR Negative (Negative); SARS-CoV-2 RNA PCR Positive (Negative)
[2024-04-23 14:30] VITALS: O2SAT 97
--- NOTE | 2024-04-23 14:30 | ED.GENADULT ---
HPI - General Adult General Chief complaint: Upper Respiratory Infection Stated complaint: ?COVID Time Seen by Provider: 04/23/24 14:07 History of Present Illness HPI narrative: 74-year-old female presented emergency department for evaluation body ache and feeling poorly over the last 2 days. Patient denies any associated chest pain or shortness of breath. Patient denies any associated nausea vomiting diarrhea. Patient is tolerating p.o.. Patient reports she has had her COVID vaccines. Patient does have prior history of COVID. Related Data Home Medications Medication Instructions Recorded Confirmed allopurinol 300 mg tablet 300 mg PO DAILY 10/12/20 05/07/23 calcitriol 0.25 mcg capsule 0.25 mcg PO TID 10/12/20 05/07/23 clonidine HCl 0.1 mg tablet 0.2 mg PO BID 10/12/20 05/07/23 ergocalciferol (vitamin D2) 1,250 1,250 mcg PO WEEKLY 10/12/20 05/07/23 mcg (50,000 unit) capsule prednisone 5 mg tablet 5 mg PO PRN PRN Allergy Symptoms 10/12/20 05/07/23 tramadol 50 mg tablet 50 mg PO PRN 10/12/20 05/07/23 apixaban 5 mg tablet (Eliquis) 5 mg PO DAILY 05/07/23 05/07/23 dulaglutide 4.5 mg/0.5 mL 1.5 mg subcut WEEKLY 05/07/23 05/07/23 subcutaneous pen injector (Trulicity) folic acid 1 mg tablet 1 mg DAILY 05/07/23 05/07/23 furosemide 40 mg tablet 40 mg PO BID 05/07/23 05/07/23 guaifenesin 600 mg tablet, 600 mg PO Q12HR PRN Congestion 05/07/23 05/07/23 extended release 12 hr (Mucus Relief ER) losartan 100 mg tablet 100 mg PO DAILY 05/07/23 05/07/23 potassium chloride 10 mEq 10 meq PO BID 05/07/23 05/07/23 tablet,extended release rosuvastatin 20 mg tablet 20 mg DAILY 05/07/23 05/07/23 sulfasalazine 500 mg tablet See Rx Instructions .Route .COMPLEX 05/07/23 05/07/23 valacyclovir 500 mg tablet 1,000 mg PO Q8HR PRN Cold Sores 05/07/23 05/07/23 (Valtrex) Allergies Allergy/AdvReac Type Severity Reaction Status Date / Time shellfish derived Allergy Joint Pain Verified 04/23/24 14:16 hydralazine AdvReac Jittery Verified 04/23/24 14:16 Review of Systems Review of Systems: All systems reviewed & are unremarkable except as noted in HPI and below PMFSH Past Medical History Medical History (Updated 04/23/24 @ 14:35 by Dawood Castaneda MD) DM2 (diabetes mellitus, type 2) Gout Hypertension Obstructive sleep apnea Pulmonary embolism Rheumatoid arthritis Surgical History Surgical History History of hysterectomy for indication other than cancer Family History Family History Sibling Lupus Tobacco abuse Sibling Breast cancer 1 sister Lung cancer Another sister who has a history of smoking cigarettes Mother Heart disease Father Lung cancer Tobacco abuse Social History Social History Social History: The the patient is and lives alone. 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 She still works part-time job at [employer]. She has 2 children. She is a lifelong nonsmoker and does not use any alcohol or drugs. Code status: She states she is unsure but is thinks that she may want to be a DNR. She does not have advanced directives in place. Surrogate decision maker: Beth Collier (sibling) Smoking status: Never smoker Second hand tobacco smoke exposure: No Alcohol intake: never Substance use: never Substance use type: does not use Lack of Transportation: No Lack of Food: Never True Current Housing: I Have Housing Concerned About Future Housing: No Difficulty Paying Gas/Electric Bills: No Difficulty Paying for Meds: No Currently Unemployed: No Education: High School Diploma/GED Difficulty w/ Childcare or Family Care: No Gender identity (if verbalized by the patient): Female Spiritual care concerns: No Exam Narrative: APPEARANCE: Well appearing, no pa
[2024-04-23 14:48] VITALS: BP 146/81; PULSE 97; RESP 18; O2SAT 100
== END 2024-04-23 14:48 | disposition home or self-care (01) ==
PROVIDERS: Emergency Provider Emergency Medicine; PCP Internal Medicine
DX: U07.1 COVID-19 (principal); I10 Essential (primary) hypertension; E11.9 Type 2 diabetes mellitus without complications; G47.33 Obstructive sleep apnea (adult) (pediatric); M10.9 Gout, unspecified; M06.9 Rheumatoid arthritis, unspecified; Z86.16 Personal history of COVID-19; Z86.711 Personal history of pulmonary embolism; Z90.710 Acquired absence of both cervix and uterus; Z79.899 Other long term (current) drug therapy; Z79.01 Long term (current) use of anticoagulants; Z79.85 Long-term (current) use of injectable non-insulin antidiabetic drugs
CPT/HCPCS: 87637; 99283